=== PATIENT | female | born 1980 | race Two or more races ===

== ENCOUNTER 2022-11-02 09:14 | Outpatient (OUT) | payer BC, SELFPAY ==
[2022-11-02 09:54] LABS: Basophils Percent Auto 0.8 % (0.2-2.0); Eosinophils Absolute Auto 0.2 10^3/uL (0.0-0.7); Eosinophils Percent Auto 3.1 % (0.9-7.0); Hematocrit 36.1 % (36.0-48.0); Hemoglobin 11.7 g/dL (12.0-16.0); Immature Granulocytes Abs Auto 0.01 10^3/uL (0.00-0.03); Immature Granulocytes Pct Auto 0.2 % (0.0-0.5); Lymphocytes Percent Auto 38.6 % (20.5-60.0); Mean Corpuscular HGB Conc 32.4 g/dL (29.9-35.2); Mean Corpuscular Hemoglobin 28.1 pg (26.7-34.0); Mean Corpuscular Volume 86.8 fL (81.0-99.0); Monocytes Absolute Auto 0.3 10^3/uL (0.3-0.8); Monocytes Percent Auto 6.4 % (1.7-12.0); Neutrophils Absolute Auto 2.6 10^3/uL (1.4-6.5); Neutrophils Percent Auto 50.9 % (43.0-75.0); Platelet Count 387 10^3/uL (150-450); Red Blood Count 4.16 10^6/uL (4.20-5.40); White Blood Count 5.2 10^3/uL (4.0-11.0)
[2022-11-02 10:16] LABS: Estimated Average Glucose 114 mg/dL; Glycohemoglobin A1C 5.6 % (4.5-6.2)
[2022-11-02 10:28] LABS: Alanine Aminotransferase 23 U/L (14-59); Albumin Level 3.7 g/dL (3.4-5.0); Alkaline Phosphatase 82 U/L (46-116); Anion Gap 12.2; Aspartate Amino Transferase 17 U/L (15-37); BUN Creatinine Ratio 12.2; Bilirubin Direct 0.1 mg/dL (0.0-0.2); Bilirubin Total 0.4 mg/dL (0.2-1.0); Calcium 8.5 mg/dL (8.5-10.1); Carbon Dioxide 25.6 mmol/L (21.0-32.0); Chloride 104 mmol/L (98-107); Chol HDL Ratio 2.2; Cholesterol 240 mg/dL (<=200); Estimated GFR (African America >60 (>=60); Estimated GFR (Non-African Ame >60 (>=60); Free T3 2.56 pg/mL (2.18-3.98); Globulin 3.8 g/dL; Glucose 97 mg/dL (74-106); HDL Cholesterol 108 mg/dL (40-60); Potassium 3.8 mmol/L (3.5-5.1); Sodium 138 mmol/L (136-145); Thyroid Stimulating Hormone 0.813 uIU/mL (0.358-3.740); Total Protein 7.5 g/dL (6.4-8.2); Triglycerides 54 mg/dL (<=150); VLDL CHOLESTEROL 10.8 mg/dL
[2022-11-02 10:34] LABS: Free T4 1.16 ng/dL (0.76-1.46)
[2022-11-03 11:09] LABS: Insulin 6.5 uIU/mL (2.6-24.9)
== END 2022-11-02 09:15 | disposition home or self-care (01) ==
LOC: LAB 09:19
PROVIDERS: PCP Family Medicine; Visit Provider Family Medicine
DX: Z00.00 Encounter for general adult medical examination without abnormal findings (principal); E06.3 Autoimmune thyroiditis
CPT/HCPCS: 36415; 80048; 80061; 80076; 83036; 83525; 84439; 84443; 84481; 85025

== ENCOUNTER 2023-09-28 12:09 | Outpatient (OUT) | payer BC, SELFPAY ==
[2023-09-28 12:31] LABS: Basophils Absolute Auto 0.1 10^3/uL (0.0-0.1); Eosinophils Absolute Auto 0.2 10^3/uL (0.0-0.7); Eosinophils Percent Auto 3.1 % (0.9-7.0); Hematocrit 37.7 % (36.0-48.0); Hemoglobin 11.6 g/dL (12.0-16.0); Immature Granulocytes Abs Auto 0.02 10^3/uL (0.00-0.03); Immature Granulocytes Pct Auto 0.3 % (0.0-0.5); Lymphocytes Absolute Auto 2.4 10^3/uL (1.2-3.8); Lymphocytes Percent Auto 38.1 % (20.5-60.0); Mean Corpuscular HGB Conc 30.8 g/dL (29.9-35.2); Mean Corpuscular Hemoglobin 25.7 pg (26.7-34.0); Mean Corpuscular Volume 83.6 fL (81.0-99.0); Mean Platelet Volume 8.8 fL (9.5-13.5); Monocytes Absolute Auto 0.4 10^3/uL (0.3-0.8); Monocytes Percent Auto 6.4 % (1.7-12.0); Neutrophils Absolute Auto 3.2 10^3/uL (1.4-6.5); Neutrophils Percent Auto 51.1 % (43.0-75.0); Platelet Count 403 10^3/uL (150-450); Red Blood Count 4.51 10^6/uL (4.20-5.40); Red Cell Distribution Width 17.2 % (11.0-15.0); White Blood Count 6.2 10^3/uL (4.0-11.0)
[2023-09-28 12:42] LABS: Estimated Average Glucose 120 mg/dL; Glycohemoglobin A1C 5.8 % (4.5-6.2)
[2023-09-28 14:05] LABS: Free T4 0.93 ng/dL (0.76-1.46)
[2023-09-28 14:09] LABS: Alanine Aminotransferase 24 U/L (14-59); Albumin Globulin Ratio 0.9; Albumin Level 3.6 g/dL (3.4-5.0); Alkaline Phosphatase 78 U/L (46-116); Anion Gap 13.4; Aspartate Amino Transferase 15 U/L (15-37); BUN Creatinine Ratio 14.1; Bilirubin Direct 0.1 mg/dL (0.0-0.2); Bilirubin Total 0.4 mg/dL (0.2-1.0); Calcium 8.5 mg/dL (8.5-10.1); Carbon Dioxide 25.7 mmol/L (21.0-32.0); Chloride 104 mmol/L (98-107); Chol HDL Ratio 2.3; Cholesterol 251 mg/dL (<=200); Estimated GFR (African America >60 (>=60); Estimated GFR (Non-African Ame >60 (>=60); Free T3 2.38 pg/mL (2.18-3.98); Globulin 3.9 g/dL; Glucose 93 mg/dL (74-106); HDL Cholesterol 109 mg/dL (40-60); Potassium 4.1 mmol/L (3.5-5.1); Sodium 139 mmol/L (136-145); Thyroid Stimulating Hormone 2.426 uIU/mL (0.358-3.740); Total Protein 7.5 g/dL (6.4-8.2); Triglycerides 72 mg/dL (<=150); VLDL CHOLESTEROL 14.4 mg/dL
== END 2023-09-28 12:10 | disposition home or self-care (01) ==
LOC: LAB 12:11
PROVIDERS: PCP Family Medicine; Visit Provider Family Medicine
DX: Z00.00 Encounter for general adult medical examination without abnormal findings (principal); E06.3 Autoimmune thyroiditis
CPT/HCPCS: 36415; 80048; 80061; 80076; 83036; 84439; 84443; 84481; 85025

== ENCOUNTER 2024-03-05 15:35 | Emergency (ER) | payer BC, SELFPAY ==
[2024-03-05 15:44] VITALS: BP 134/97; PULSE 94; TEMP 36.6; O2SAT 98; BMI 36.6
--- NOTE | 2024-03-05 15:52 | PC.NURSE ---
Area to right outer hand, small amount of bleeding present, no redness or warmth at site.
--- NOTE | 2024-03-05 16:33 | ED_ITS ---
HPI - Skin/Abscess/Foreign Bdy General Chief complaint: Skin/Abscess/Foreign Body Stated complaint: PYOGENIC GRANULOMA ISSUE/BLEEDING Time Seen by Provider: 03/05/24 15:56 Source: patient Mode of arrival: walk-in History of Present Illness HPI narrative: The patient have a granular but her right hand apparently recently evaluated by manager of finance and had cryotherapy to it, she was getting home apparently when she had her right hand is started bleeding where the therapy was No other injuries or any other concern Related Data Home Medications ?Medication ?Instructions ?Recorded ?Confirmed fluticasone furoate 100 1 inh inhalation Q24H 03/05/24 03/05/24 mcg-vilanterol 25 mcg/dose inhalation powder (Breo Ellipta) levothyroxine 75 mcg tablet 75 mcg PO DAILY 03/05/24 03/05/24 Allergies Allergy/AdvReac Type Severity Reaction Status Date / Time Latex, Natural Rubber Allergy Hives Verified 03/05/24 15:41 Review of Systems ROS Status of ROS 10 or more systems reviewed and unremark able except as noted in history and below PFSH PFSH Social History Little interest or pleasure in doing things: not at all Feeling down, depressed, or hopeless: not at all Exam Narrative Exam Narrative: Nurses notes and vital signs reviewed and patient is not hypoxic. General: Well-appearing and in no apparent distress. Right hand examination: The patient have a small granuloma just on the medial aspect of the hand mostly just below the small finger measuring 0.25 cm and it is mildly bleeding no other vascular injury detected Skin: Warm, dry, no pallor noted. No rash. Head: Normocephalic, atraumatic. Neck: Supple, non-tender. Eye: Pupils are equal, round and EOMI. No scleral icterus. Ears, Nose, Mouth, and Throat: TM are clear, no nasal mucosal hypertrophy. Oral mucosa is moist, no posterior oropharynx erythema, uvula is mid-line Cardiovascular: Regular Rate and Rhythm without murmur, gallop or rub. Respiratory: No accessory muscle use or respiratory distress. Lungs are clear to auscultation, no wheezing, rales or rhonchi Chest Wall: no tenderness Back: No midline thoracic or lumbar vertebral tenderness. No CVA tenderness GI: Abdomen is soft, non-distended. Normal bowel sounds. No masses appreciated. No tenderness to palpation. No rebound, guarding, or rigidity noted. Neurological: A&O x4. No cranial nerve dysfunction observed. No truncal ataxia. Moves all extremities. Sensation intact. Psychiatric: Cooperative and interactive. Normal mood and affect. Constitutional Vital Signs, click to edit/add: Last Vital Signs Temp 97.8 F 03/05/24 15:44 Pulse 94 H 03/05/24 15:44 Resp 18 03/05/24 15:44 BP 134/97 H 03/05/24 15:44 Pulse Ox 98 03/05/24 15:44 O2 Del Method Room Air 03/05/24 15:44 Course Vital Signs Vital signs: Vital Signs Temperature 97.8 F 03/05/24 15:44 Pulse Rate 94 H 03/05/24 15:44 Respiratory Rate 18 03/05/24 15:44 Blood Pressure 134/97 H 03/05/24 15:44 Pulse Oximetry 98 03/05/24 15:44 Oxygen Delivery Method Room Air 03/05/24 15:44 Temperature 97.8 F 03/05/24 15:44 Pulse Rate 94 H 03/05/24 15:44 Respiratory Rate 18 03/05/24 15:44 Blood Pressure 134/97 H 03/05/24 15:44 Pulse Oximetry 98 03/05/24 15:44 Oxygen Delivery Method Room Air 03/05/24 15:44 MDM - Skin/Abscess/Foreign Bdy MDM Narrative Medical decision making narrative: Applied pressure dressing on her right hand and kept it at least for more than half an hour in the ER with no bleeding the patient was discharged home to continue the dressing for the next 24 hours at least The patient is to follow up with primary care physician in next 2-3 days or to return to the emergency department should any of the signs or symptoms worsen or new symptoms develop. The patient agrees with the following Diagnosis and Treatment plan and the patient will be discharged home. Discharge Plan Discharge Chief Complaint: Skin/Abscess/Foreign Body Clinical Impression: Skin abnormality Patient Disposition: Home, Self-Care Time of Disposition Decision: 16:33 Condition: Good Prescriptions / Home Meds: No Action fluticasone furoate-vilanterol [Breo Ellipta] 100-25 mcg/dose blister with device 1 inh INHALATION Q24H levothyroxine 75 mcg tablet 75 mcg PO DAILY Print Language: Turkmen Referrals: Jl Bae MD [Primary Care Provider] - 1 week
== END 2024-03-05 16:41 | disposition home or self-care (01) ==
PROVIDERS: Emergency Provider Emergency Medicine; PCP Family Medicine
DX: L92.8 Other granulomatous disorders of the skin and subcutaneous tissue (principal)
CPT/HCPCS: 99281

== ENCOUNTER 2024-06-07 06:02 | Emergency (ER) | payer BC, SELFPAY ==
--- OUTSIDE RECORDS SUMMARY | 2024-06-07 06:08 | XMS_ITS | CCD ---
Author Organization [facility] Care Team Providers Care 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 Name Role Phone Mariana Lopez Unavailable Mya Del Real Unavailable CARROLL RUSHING Admitting Unavailable CARROLL RUSHING Attending Unavailable SHAIKH CARMONA Referring Unavailable BRUSH [place], SR MINO Albright Primary Care Unavailable KRISTAN BELLAMY Consulting Unavailable BRUSH [place], DR HERZOG Consulting Unavailable BRUSH [place]IRIE, DR HERZOG Primary Care Unavailable BRUSH [place]IRIE, DR HERZOG Admitting Unavailable BRUSH [place]AIRIE, DR HERZOG Attending Unavailable BRUSH [place]AIRIE, DR HERZOG Consulting Unavailable BRUSH [place]AIRIE, DR HERZOG Primary Care Unavailable BRUSH [place]AIRIE, DR HERZOG Admitting Unavailable BRUSH [place]AIRIE, DR HERZOG Attending Unavailable BRUSH PRAIRIE, DR HERZOG Attending Unavailable BRUSH [place]AIRIE, DR HERZOG Consulting Unavailable BRUSH [place]AIRIE, DR HERZOG Primary Care Unavailable BRUSH [place], DR HERZOG Admitting Unavailable KRISTINE, SHAIKH Nathalie Attending Unavailable KRISTINE, H Admitting Unavailable STIRUM, DR ANDRZEJ Montgomery Consulting Unavailable BRUSH [place]AIRIE, DR HERZOG Primary [facility] Hurtado Consulting Unavailable SAMSA ., JUSTINA Procedure Practitioner Unavailab lamberto CARMONA, ARRIAGA H Procedure Practitioner Unavailrula MALHOTRA ., ROMI QUINN Consulting UnavailNANDO Barrientos Consulting Unavailable SAMSA ., JUSTINA Consulting Unavailable IRENE BAEZ Consulting Unavailable FAWWAD, ARRIAGA H Consulting Unavailable STEPHEN GIVandana Consulting Unavailable GABRIEL, LIYAH Consulting Unavailable Jl Lockett MD Unavailable Jl Lockett MD Primary Care Provider JL LOCKETT Attending Unavailable JL LOCKETT Attending Unavailable JL LOCKETT Attending Unavailable JL LOCKETT Attending Unavailable LEVY, JL Attending Unavailable LEVY, JL Attending Unavailable JL LOCKETT Attending Unavailable Allergies Allergy Classification Reported Allergen(s) Allergy Type Date of Onset Reaction(s) Facility (2 sources) Shellfish Propensity to adverse reactions anaphylaxis [employer] Other (1 source) Latex Drug allergy hives [employer] Other (1 source) Latex Drug allergy (disorder) [facility] (1 source) Shellfish Drug allergy (disorder) [facility] Medications Current Medications Medication Drug Class(es) Dates Sig (Normalized) Sig (Original) albuterol 0.83 mg/ml inhalation solution (20 sources) beta2-Adrenergic Agonist Start: 02-10-2024 albuterol (2.5 MG/3ML) 0.083% nebulizer solution Indications: Asthma, extrinsic, without status asthmaticus, mild intermittent, uncomplicated (CMS/HCC) Take 3 mL (2.5 mg) by nebulization every 4 (four) hours if needed for wheezing or shortness of breath 150 mL 3 02/10/2024 Active take 2 puff(s) by in halation every four hours for wheezing albuterol HFA 90 mcg/act inhaler Inhale 2 puffs every 4 (four) hours if needed for wheezing Active take 2 puff(s) by in halation every four hours as needed ProAir HFA 108 (90 Base) MCG/ACT 2 puffs as needed Inhalation every 4 hrs Active cefdinir 300 mg oral capsule (4 sources) Cephalosporin Antibacterial Start: 03-19-2024 End: 03-31-2024 take 1 capsule by mouth in the morning cefdinir (Omnicef) 300 MG capsule Indications: Acute non-recurrent pansinusitis Take 1 capsule (300 mg) by mouth in the morning and 1 capsule (300 mg) before bedtime. Do all this for 10 days. 20 capsule 03/19/2024 03/31/2024 Active cetirizine hydrochloride 10 mg oral tablet (14 sources) Histamine-1 Receptor Antagonist take 1 tablet by mouth in the morning cetirizine (ZyrTEC) 10 MG tablet Take 10 mg by mouth in the morning. Active esomeprazole 20 mg delayed release oral capsule (14 sources) Proton Pump Inhibitor take 1 capsule by mouth before mealtime esomeprazole (NexIUM) [address] capsule Take 20 mg by mouth in the morning. Take before meals. Do not open capsule.. Active NexIUM Active fluticasone propionate 0.05 mg/actuat metered dose nasal spray (12 sources) Corticosteroid take 2 spray(s) nasal route in the morning fluticasone (Flonase) 50 MCG/ACT nasal spray Administer 2 sprays into each nostril in the morning. Shake gently. Before first use, prime pump. After use, clean tip and replace cap.. Active 14 actuat fluticasone furoate 0.1 mg/actuat / vilanterol 0.025 mg/actuat dry powder inhaler (12 sources) Corticosteroid, beta2-Adrenergic Agonist Start: Fluticasone Furoate-Vilanterol (Breo Ellipta) 100-25 MCG/ACT aerosol powder Indications: Asthma, extrinsic, without status asthmaticus, mild intermittent, uncomplicated (CMS/HCC) Inhale 1 Inhalation Daily 60 each 3 11/21/2023 Active levothyroxine sodium 0.075 mg oral tablet (12 sources) l-Thyroxine Start: End: take 1 tablet by mouth before mealtime levothyroxine (Synthroid, Levoxyl) 75 MCG tablet Indications: Rowena's disease (CMS/HCC) Take 1 tablet (75 mcg) by mouth in the morning. Take before meals. 30 tablet 11 09/26/2023 09/25/2024 Active liothyronine sodium 0.005 mg oral tablet (12 sources) l-Triiodothyronine Start: take 1 tablet by mouth in the morning liothyronine (Cytomel) 5 MCG tablet Take 5 mcg by mouth in the morning. 02/23/2023 Active naproxen 500 mg oral tablet (2 sources) Nonsteroidal Anti-inflammatory Drug Start: take 1 tablet by mouth every twelve hours Naproxen 500 mg 1 tablet as needed Orally every 12 hrs for 7 days Feb, Active ondansetron 4 mg disintegrating oral tablet (11 sources) Serotonin-3 Receptor Antagonist Start: take 1 tablet by mouth every six hours as needed for nausea and vomiting and nausea and nausea ondansetron ODT (Zofran-ODT) 4 MG disintegrating tablet Indications: Nausea Take 1 tablet (4 mg) by mouth every 6 (six) hours if needed for nausea or vomiting 30 tablet 2 12/26/2023 Active promethazine hydrochloride 25 mg oral tablet (5 sources) Phenothiazine Start: 025 take 1 tablet by mouth every six hours for nausea promethazine (Phenergan) 25 MG tablet Indications: Acute non-recurrent pansinusitis Take 1 tablet (25 mg) by mouth every 6 (six) hours if needed for nausea or vomiting 30 tablet 03/19/2024 Active Semaglutide,0.25 or 0.5MG/DOS, (Ozempic, 0.25 or 0.5 MG/DOSE,) 2 MG/3ML solution pen-injector (12 sources) Start: 024 End: 025 Semaglutide,0.25 or 0.5MG/DOS, (Ozempic, 0.25 or 0.5 MG/DOSE,) 2 MG/3ML solution pen-injector Indications: Metabolic syndrome Inject 0.5 mg under the skin every 7 (seven) days 3 mL 2 09/26/2023 09/25/2024 Active Completed/Discontinued Medications Medication Drug Class(es) Dates Sig (Normalized) Sig (Original) 24 hr metFORMIN hydrochloride 500 mg extended release oral tablet (3 sources) Biguanide Start: 09-26-2023 End: 12-26-2023 take 1 tablet by mouth every twenty-four hours at mealtime metFORMIN XR (Glucophage-XR) 500 MG 24 hr tablet Indications: Insulin resistance Take 1 tablet (500 mg) by mouth in the evening. Take with meals Do not crush, chew, or split. 30 tablet 3 09/26/2023 12/26/2023 Discontinued predniSONE 50 mg oral tablet (4 sources) Start: 03-19-2024 End: 03-31-2024 take 1 tablet by mouth once daily predniSONE (Deltasone) 50 MG tablet Indications: Acute non-recurrent pansinusitis Take 1 tablet (50 mg) by mouth Daily for 6 days 6 tablet 03/19/2024 03/31/2024 Discontinued raNITIdine 150 mg oral tablet (2 sources) Histamine-2 Receptor Antagonist take 1 tablet by mouth twice daily Zantac 150 MG 1 tablet Orally Twice a day Not-Taking Problems Active Problems Problem Classification Problem Date Documented Date Episodic/Chronic Anxiety disorders (2 sources) Anxiety disorder, unspecified; Translations: [Anxiety disorder, unspecified] Onset: 02-15-2022 Chronic Asthma (20 sources) Unspecified asthma with (acute) exacerbation; Translations: [Unspecified asthma with status asthmaticus] Onset: 02-11-2022 Chronic Cardiac dysrhythmias (4 sources) Supraventricular tachycardia; Translations: [SUPRAVENTRICULAR TACHYCARDIA] Onset: 03-22-2022 Chronic Diseases of white blood cells (1 source) Elevated white blood cell count, unspecified; Translations: [ELEVATED WHITE BLOOD CELL COUNT UNS] Onset: 03-05-2022 Chronic Esophageal disorders (12 sources) Gastroesophageal reflux disease; Translations: [Gastro-esophageal reflux disease without esophagitis] Onset: 04-04-2023 04-04-2023 Chronic Nausea and vomiting (2 sources) Nausea; Translations: [Nausea] 12-26-2023 Episodic Other nutritional; endocrine; and metabolic disorders (1 source) Body mass index (BMI) 36.0-36.9, adult; Translations: [BODY MASS INDEX BMI 36.0-36.9 ADULT] Onset: 03-05-2022 Chronic Other nutritional; endocrine; and metabolic disorders (1 source) Morbid (severe) obesity due to excess calories; Translations: [MORBID SEVERE OBES D/T EXCESS GENEVA] Onset: 03-05-2022 Chronic Other nutritional; endocrine; and metabolic disorders (16 sources) Insulin resistance; Translations: [Insulin resistance] Onset: 09-25-2023 09-25-2023 Chronic Other nutritional; endocrine; and metabolic disorders (12 sources) Metabolic syndrome X; Translations: [Metabolic syndrome] Onset: 09-25-2023 09-25-2023 Chronic Other nutritional; endocrine; and metabolic disorders (1 source) Morbid obesity; Translations: [Morbid (severe) obesity due to excess calories] Onset: 09-25-2023 09-25-2023 Chronic Other nutritional; endocrine; and metabolic disorders (8 sources) Body mass index 30+ - obesity; Translations: [Obesity, unspecified] Onset: 09-25-2023 12-26-2023 Chronic Other nutritional; endocrine; and metabolic disorders (7 sources) Severe obesity; Translations: [Class 2 severe obesity due to excess calories with serious comorbidity and body mass index (BMI) of 36.0 to 36.9 in adult] Onset: 09-25-2023 03-19-2024 Chronic Other nutritional; endocrine; and metabolic disorders (4 sources) Abnormal weight gain; Translations: [ABNORMAL WEIGHT GAIN] Onset: 07-05-2022 Episodic Other screening for suspected conditions (not mental disorders or infectious disease) (3 sources) Other specified abnormal findings of blood chemistry; Translations: [Patient encounter status] Onset: 03-05-2022 03-31-2024 Episodic Other skin disorders (14 sources) Pyogenic granuloma; Translations: [Pyogenic granuloma] Onset: 02-10-2024 02-10-2024 Episodic Other upper respiratory disease (16 sources) Allergic rhinitis due to pollen; Translations: [Allergic rhinitis due to pollen] Onset: 04-04-2023 04-04-2023 Chronic Substance-related disorders (1 source) Nicotine dependence, cigarettes, uncomplicated; Translations: [NICOTINE DEPEND CIGARETTES UNCOMP] Onset: 03-05-2022 Chronic Thyroid disorders (17 sources) Autoimmune thyroiditis; Translations: [Hypothyroidism, unspecified] Onset: 04-26-2022 Chronic Unclassified (1 source) ACIDOSIS UNSPECIFIED; Translations: [ACIDOSIS UNSPECIFIED] Onset: 03-05-2022 Unclassified (1 source) CONTACT W/AND (SUSP) EXPOS COVID-19; Translations: [CONTACT W/AND (SUSP) EXPOS COVID-19] Onset: 03-05-2022 Past or Other Problems Problem Classification Problem Date Documented Date Episodic/Chronic Abdominal hernia (1 source) Diaphragmatic hernia without obstruction or gangrene; Translations: [DIAPH HERNIA W/O OBST/GANGRENE] Onset: 03-05-2022 Episodic Allergic reactions (12 sources) Nummular eczema; Translations: [Nummular dermatitis] Onset: 04-04-2023 04-04-2023 Episodic Cardiac dysrhythmias (1 source) Tachycardia, unspecified; Translations: [TACHYCARDIA UNSPECIFIED] Onset: 03-05-2022 Episodic Diabetes mellitus without complication (14 sources) Prediabetes; Translations: [Prediabetes] Onset: 04-04-2023 04-04-2023 Episodic E Codes: Adverse effects of medical drugs (1 source) Adverse effect of glucocorticoids and synthetic analogues, initial encounter; Translations: [ADVRS EFF GLUCOCORT SYN ANALOG INIT] Onset: 03-05-2022 Episodic Influenza (1 source) Influenza due to other identified influenza virus with the same other identified influenza virus pneumonia; Translations: [FLU D/T OTH ID FLU VIR SAME FLU PN] Onset: 03-05-2022 Episodic Other connective tissue disease (1 source) Pain in right foot Onset: 02-21-2021 Resolved: 02-21-2021 Episodic Other injuries and conditions due to external causes (1 source) Foreign body in vulva and vagina, initial encounter Onset: 09-02-2021 Resolved: 09-02-2021 Episodic Other upper respiratory infections (14 sources) Acute pansinusitis; Translations: [Acute pansinusitis, unspecified] Onset: 04-04-2023 Resolved: 03-31-2024 09-25-2023 Episodic Respiratory failure; insufficiency; arrest (adult) (2 sources) Acute respiratory failure with hypoxia; Translations: [Acute respiratory failure with hypercapnia] Onset: 03-05-2022 Episodic Sprains and strains (1 source) Unspecified sprain of right foot, initial encounter Onset: 02-21-2021 Resolved: 02-21-2021 Episodic Results Test Name Value Interpretation Reference Range Facility PROF 14(COMP METB)on 023 Albumin [Mass/Vol] 3.6 g/dL Normal 3.4-5.0 [facility] Comment on above: Performed By: #### T 4, CMP, TSH #### [facility] [address] [place] [address] Dr. Aileen Bradford Albumin/Globulin [Mass ratio] 0.9 {ratio} Normal [facility] Comment on above: Performed By: #### T 4, CMP, TSH #### [facility] [address] [place] [address] Dr. Aileen Bradford ALP [Catalytic activity/Vol] 98 U/L Normal 46-116 [facility] Comment on above: Performed By: #### T 4, CMP, TSH #### [facility] [address] [place] [address] Dr. Aileen Bradford ALT [Catalytic activity/Vol] 37 U/L Normal 14-59 [facility] Comment on above: Performed By: #### T 4, CMP, TSH #### [facility] [address] [place] [address] Dr. Aileen Bradford Anion gap [Moles/Vol] 16.0 mmol/L Normal [facility] Comment on above: Performed By: #### T 4, CMP, TSH #### [facility] [address] [place] [address] Dr. Aileen Bradford AST [Catalytic activity/Vol] 26 U/L Normal 15-37 [facility] Comment on above: Performed By: #### T 4, CMP, TSH #### [facility] [address] [place] [address] Dr. Aileen Bradford Bilirubin [Mass/Vol] 0.2 mg/dL Normal 0.2-1.0 [facility] Comment on above: Performed By: #### T 4, CMP, TSH #### [facility] [address] [place] [address] Dr. Aileen Bradford Calcium [Mass/Vol] 9.1 mg/dL Normal 8.5-10.1 [facility] Comment on above: Performed By: #### T 4, CMP, TSH #### [facility] [address] [place] [address] Dr. Aileen Bradford Chloride [Moles/Vol] 107 mmol/L Normal 98-107 [facility] Comment on above: Performed By: #### T 4, CMP, TSH #### [facility] [address] [place] [address] Dr. Aileen Bradford CO2 [Moles/Vol] 22.8 mmol/L Normal 21.0-32.0 [facility] Comment on above: Performed By: #### T 4, CMP, TSH #### [facility] [address] [place] [address] Dr. Aileen Bradford Creatinine [Mass/Vol] 0.95 mg/dL Normal 0.55-1.02 [facility] Comment on above: Performed By: #### T 4, CMP, TSH #### [facility] [address] [place] [address] Dr. Aileen Bradford EGFR-AF BURMESE >60 Normal >=60 [facility] Comment on above: Performed By: #### T 4, CMP, TSH #### [facility] [address] [place] [address] Dr. Aileen Bradford EGFR-NON AF BURMESE >60 Normal >=60 [facility] Comment on above: Performed By: #### T 4, CMP, TSH #### [facility] [address] [address] [address] Aileen Bradford Globulin (S) [Mass/Vol] 3.9 g/dL Normal [facility] Comment on above: Performed By: #### T 4, CMP, TSH #### [facility] [address] [address] [address] Aileen Bradford Glucose [Mass/Vol] 112 mg/dL Critically high 74-106 [facility] Comment on above: Performed By: #### T 4, CMP, TSH #### [facility] [address] [place] [address] Dr. Aileen Bradford Potassium [Moles/Vol] 3.8 mmol/L Normal 3.5-5.1 [facility] Comment on above: Performed By: #### T 4, CMP, TSH #### [facility] [address] [place] [address] Dr. Aileen Bradford Protein [Mass/Vol] 7.5 g/dL Normal 6.4-8.2 [facility] Comment on above: Performed By: #### T 4, CMP, TSH #### [facility] [address] [place] [address] Dr. Aileen Bradford Sodium [Moles/Vol] 142 mmol/L Normal 136-145 [facility] Comment on above: Performed By: #### T 4, CMP, TSH #### [facility] [address] [place] [address] Dr. Aileen Bradford Urea nitrogen [Mass/Vol] 19.0 mg/dL Critically high 7.0-18.0 [facility] Comment on above: Performed By: #### T 4, CMP, TSH #### [facility] [address] [place] [address] Dr. Aileen Bradford Urea nitrogen/Creatinine [Mass ratio] 20.0 mg/mg Normal [facility] Comment on above: Performed By: #### T 4, CMP, TSH #### [facility] [address] [place] [address] Dr. Aileen Bradford T4on 07-05-2022 T4 [Mass/Vol] 11.10 ug/dL Normal 4.80-13.90 [facility] Comment on above: Performed By: #### T 4, CMP, TSH #### [facility] [address] [place] [address] Dr. Aileen Bradford TSHon 07-05-2022 TSH Qn m[IU]/L Critically low 0.358-3.740 [facility] Comment on above: Performed By: #### T 4, CMP, TSH #### [facility] [address] [place] [address] Dr. Aileen Bradford T4on 04-26-2022 T4 [Mass/Vol] 8.70 ug/dL Normal 4.80-13.90 [facility] Comment on above: Performed By: #### T 4, CMP, TSH #### [facility] [address] [place] [address] Dr. Aileen Bradford TSHon 04-26-2022 TSH 0.538 uIU/mL Normal 0.358-3.740 [facility] Comment on above: Performed By: #### T 4, CMP, TSH #### [facility] [address] [place] [address] Dr. Aileen Bradford THYROID ANTIBODIESon 023 Thyroglobulin Antibody 327.4 IU/mL Critically high 0.0-0.9 [facility] Comment on above: Result Comment: Thyr oglobulin Antibody measured by [employer] Performed By: #### T 4, CMP, TSH #### [facility] [address] [place] [address] Dr. Aileen Bradford Thyroid Peroxidase (TPO) Ab 97 IU/mL Critically high 0-34 [facility] Comment on above: Performed By: #### T 4, CMP, TSH #### [facility] [address] [place] [address] Dr. Aileen Bradford T4on 03-22-2022 T4 [Mass/Vol] 6.50 ug/dL Normal 4.80-13.90 [facility] Comment on above: Performed By: #### T 4, TSH #### [facility] [address] [address] [address] Aileen Bradford TSHon 03-22-2022 TSH 1.375 uIU/mL Normal 0.358-3.740 [facility] Comment on above: Performed By: #### T 4, TSH #### [facility] [address] [address] [address] Aileen Bradford Basic Metab w/rfx MGon 02-25 Anion gap [Moles/Vol] 14 mmol/L Normal 9-17 [facility] Comment on above: Performed By: #### C DP IOCAL, REJEC #### [employer] [address] [place] [id number] Brokerage Manager: Ashkan Torres MD Calcium [Mass/Vol] 8.8 mg/dL Normal 8.6-10.4 [facility] Comment on above: Performed By: #### C DP, IOCAL, REJEC #### [facility] [address] [place] [address] Brokerage Manager: Ashkan Torres MD Chloride [Moles/Vol] 104 mmol/L Normal 98-107 [facility] Comment on above: Performed By: #### C DP, IOCAL, REJEC #### [employer] [address] [place] [address] Brokerage Manager: Ashkan Torres MD CO2 [Moles/Vol] 23 mmol/L Normal 20-31 [facility] Comment on above: Performed By: #### C DP, IOCAL, REJEC #### [employer] [address] [place] [address] Brokerage Manager: Ashkan Torres MD Creatinine [Mass/Vol] 0.47 mg/dL Low 0.50-0.90 [facility] Comment on above: Performed By: #### C DP, IOCAL, REJEC #### [facility] [address] [place] [address] Brokerage Manager: Ashkan Torres MD GFR/1.73 sq M.predicted among non-blacks MDRD (S/P/Bld) [Vol rate/Area] mL/min/{1.73_m2} Normal >60 [facility] Comment on above: Result Comment: Effective Dec 18, 2021 These results are not intended for use in patients <18 years of age. eGFR results are calculated without a race factor using the 2020 CKD-EPI equation. Careful clinical correlation is recommended, particularly when comparing to results calculated using previous equations. The CKD-EPI equation is less accurate in patients with extremes of muscle mass, extra-renal metabolism of creatine, excessive creatine ingestion, or following therapy that affects renal tubular secretion. Performed By: #### C SAIGE HARRIS REJEC #### [facility] [employer] [address] [place] [id number] Brokerage Manager: Ashkan Torres MD Glucose [Mass/Vol] 94 mg/dL Normal 70-99 [facility] Comment on above: Performed By: #### C SAIGE HARRIS REJEC #### [facility] [address] [place] [address] Brokerage Manager: Ashkan Torres MD Potassium [Moles/Vol] 3.7 mmol/L Normal 3.7-5.3 [facility] Comment on above: Performed By: #### C SAIGE HARRIS REJEC #### [facility] [address] [place] [address] Brokerage Manager: Ashkan Torres MD Sodium [Moles/Vol] 141 mmol/L Normal 135-144 [facility] Comment on above: Performed By: #### C SAIGE HARRIS REJEC #### [facility] [address] [place] [address] Brokerage Manager: Ashkan Torres MD Urea nitrogen [Mass/Vol] 16 mg/dL Normal 6-20 [facility] Comment on above: Performed By: #### C DP IOCAL, REJEC #### [address] [address] Brokerage Manager: Ashkan Torres MD CBC with Diffon 02-25-2022 Abs. Basophil <0.03 Normal 0.00-0.20 [facility] Comment on above: Performed By: #### C DP IOCAL, REJEC #### [address] [address] Brokerage Manager: Ashkan Torres MD Abs.Imm.Granulocyte 0.11 k/uL Normal 0.00-0.30 [facility] Comment on above: Performed By: #### C STEVEN IOCAL, REJEC #### [address] [address] Brokerage Manager: Ashkan Torres MD Abs.Neutrophil (Seg) 3.79 k/uL Normal 1.50-8.10 [facility] Comment on above: Performed By: #### C STEVEN IOCAL, REJEC #### [address] [address] Brokerage Manager: Ashkan Torres MD Basophils/100 WBC (Bld) 0 % Normal 0-2 [facility] Comment on above: Performed By: #### C VIANNEY HARRISCAL, REJEC #### [address] [address] Brokerage Manager: Ashkan Torres MD Eosinophils (Bld) [#/Vol] 0.11 10*3/uL Normal 0.00-0.44 [facility] Comment on above: Performed By: #### C DP IOCAL, REJEC #### [facility] [facility] [address] [place] [address] Brokerage Manager: Ashkan Torres MD Eosinophils/100 WBC (Bld) 1 % Normal 1-4 [facility] Comment on above: Performed By: #### C DP, IOCAL, REJEC #### [facility] [facility] [address] [place] [address] Brokerage Manager: Ashkan Torres MD Erythrocyte distribution width (RBC) [Ratio] 15.5 % High 11.8-14.4 [facility] Comment on above: Performed By: #### C DP, IOCAL, REJEC #### [address] [address] Brokerage Manager: Ashkan Torres MD Hematocrit (Bld) [Volume fraction] 34.5 % Low 36.3-47.1 [facility] Comment on above: Performed By: #### C DP, IOCAL, REJEC #### [facility] [address] [place] [address] Brokerage Manager: Ashkan Torres MD Hemoglobin (Bld) [Mass/Vol] 10.7 g/dL Low 11.9-15.1 [facility] Comment on above: Performed By: #### C DP, IOCAL, REJEC #### [facility] [address] [place] [address] Brokerage Manager: Ashkan Torres MD Immature granulocytes/100 WBC (Bld) 1 % High 0 [facility] Comment on above: Performed By: #### C DP, IOCAL, REJEC #### [address] [address] Brokerage Manager: Ashkan Torres MD Lymphocytes (Bld) [#/Vol] 3.31 10*3/uL Normal 1.10-3.70 [facility] Comment on above: Performed By: #### C DP, IOCAL, REJEC #### [facility] [address] [place] [address] Brokerage Manager: Ashkan Torres MD Lymphocytes/100 WBC (Bld) 42 % Normal 24-43 [facility] Comment on above: Performed By: #### C DP, IOCAL, REJEC #### [address] [address] Brokerage Manager: Ashkan Torres MD MCH (RBC) [Entitic mass] 30.1 pg Normal 25.2-33.5 [facility] Comment on above: Performed By: #### C DP, IOCAL, REJEC #### [address] [address] Brokerage Manager: Ashkan Torres MD MCHC (RBC) [Mass/Vol] 31.0 g/dL Normal 28.4-34.8 [facility] Comment on above: Performed By: #### C DP IOCAL, REJEC #### [address] [address] Brokerage Manager: Ashkan Torres MD MCV (RBC) [Entitic vol] 97.2 fL Normal 82.6-102.9 [facility] Comment on above: Performed By: #### C STEVEN IOCAL, REJEC #### [address] [address] Brokerage Manager: Ashkan Torres MD Monocytes (Bld) [#/Vol] 0.52 10*3/uL Normal 0.10-1.20 [facility] Comment on above: Performed By: #### C DP IOCAL, REJEC #### [address] [address] Brokerage Manager: Ashkan Torres MD Monocytes/100 WBC (Bld) 7 % Normal 3-12 [facility] Comment on above: Performed By: #### C DP, IOCAL, REJEC #### [address] [address] Brokerage Manager: Ashkan Torres MD Neutrophil (Seg) 49 % Normal 36-65 [facility] Comment on above: Performed By: #### C DP IOCAL, REJEC #### [address] [address] Brokerage Manager: Ashkan Torres MD NRBC Automated 0.0 per 100 WBC Normal 0.0 [facility] Comment on above: Performed By: #### C STEVEN IOCAL, REJEC #### [address] [address] Brokerage Manager: Ashkan Torres MD Platelet mean volume (Bld) [Entitic vol] 9.4 fL Normal 8.1-13.5 [facility] Comment on above: Performed By: #### C VIANNEY HARRISCAL, REJEC #### [address] [address] Brokerage Manager: Ashkan Torres MD Platelets (Bld) [#/Vol] 261 10*3/uL Normal 138-453 [facility] Comment on above: Performed By: #### C STEVEN IOCAL, REJEC #### [address] [address] Brokerage Manager: Ashkan Torres MD RBC (Bld) [#/Vol] 3.55 10*6/uL Low 3.95-5.11 [facility] Comment on above: Performed By: #### C STEVEN IOCAL, REJEC #### [address] [address] Brokerage Manager: Ashkan Torres MD RBC morphology finding Nom (Bld) ANISOCYTOSIS PRESENT Normal [facility] Comment on above: Performed By: #### C VIANNEY AHRRISCAL, REJEC #### [address] [address] Brokerage Manager: Ashkan Torres MD WBC (Bld) [#/Vol] 7.9 10*3/uL Normal 3.5-11.3 [facility] Comment on above: Performed By: #### C DP, IOCAL, REJEC #### [facility] [address] [place] [address] Brokerage Manager: Ashkan Torres MD Basic Metab w/rfx MGon 02-24 Anion gap [Moles/Vol] 12 mmol/L Normal 9-17 [facility] Comment on above: Performed By: #### I OCAL #### [address] [address] Brokerage Manager: Ashkan Torres MD Calcium [Mass/Vol] 8.7 mg/dL Normal 8.6-10.4 [facility] Comment on above: Performed By: #### I OCAL #### [address] [address] Brokerage Manager: Ashkan Torres MD Chloride [Moles/Vol] 104 mmol/L Normal 98-107 [facility] Comment on above: Performed By: #### I OCAL #### [facility] [address] [place] [address] Brokerage Manager: Ashkan Torres MD CO2 [Moles/Vol] 24 mmol/L Normal 20-31 [facility] Comment on above: Performed By: #### I OCAL #### [facility] [address] [place] [address] Brokerage Manager: Ashkan Torres MD Creatinine [Mass/Vol] 0.50 mg/dL Normal 0.50-0.90 [facility] Comment on above: Performed By: #### I OCAL #### [facility] [address] [place] [address] Brokerage Manager: Ashkan Torres MD GFR/1.73 sq M.predicted among non-blacks MDRD (S/P/Bld) [Vol rate/Area] mL/min/{1.73_m2} Normal >60 [facility] Comment on above: Result Comment: Effective Dec 18, 2021 These results are not intended for use in patients <18 years of age. eGFR results are calculated without a race factor using the 2020 CKD-EPI equation. Careful clinical correlation is recommended, particularly when comparing to results calculated using previous equations. The CKD-EPI equation is less accurate in patients with extremes of muscle mass, extra-renal metabolism of creatine, excessive creatine ingestion, or following therapy that affects renal tubular secretion. Performed By: #### I OCAL #### [facility] [address] [place] [address] Brokerage Manager: Ashkan Torres MD Glucose [Mass/Vol] 121 mg/dL High 70-99 [facility] Comment on above: Performed By: #### I OCAL #### [facility] [address] [place] [address] Brokerage Manager: Ashkan Torres MD Potassium [Moles/Vol] 4.2 mmol/L Normal 3.7-5.3 [facility] Comment on above: Performed By: #### I OCAL #### [address] [address] Brokerage Manager: Ashkan Torres MD Sodium [Moles/Vol] 140 mmol/L Normal 135-144 [facility] Comment on above: Performed By: #### I OCAL #### [address] [address] Brokerage Manager: Ashkan Torres MD Urea nitrogen [Mass/Vol] 18 mg/dL Normal 6-20 [facility] Comment on above: Performed By: #### I OCAL #### [facility] [address] [place] [address] Brokerage Manager: Ashkan Torres MD Potassium [Moles/Vol] 2.9 mmol/L Critically low 3.7-5.3 [facility] Comment on above: Performed By: #### C DP, IOCAL, REJEC #### [facility] [address] [place] [address] Brokerage Manager: Ashkan Torres MD Anion gap [Moles/Vol] 11 mmol/L Normal 9-17 [facility] Comment on above: Performed By: #### C VIANNEY HARRISCAL, REJEC #### [facility] [address] [place] [address] Brokerage Manager: Ashkan Torres MD Calcium [Mass/Vol] 8.5 mg/dL Low 8.6-10.4 [facility] Comment on above: Performed By: #### C STEVEN IOCAL, REJEC #### [facility] [address] [place] [address] Brokerage Manager: Ashkan Torres MD Chloride [Moles/Vol] 105 mmol/L Normal 98-107 [facility] Comment on above: Performed By: #### C VIANNEY HARRISCAL, REJEC #### [facility] [address] [place] [address] Brokerage Manager: Ashkan Torres MD CO2 [Moles/Vol] 26 mmol/L Normal 20-31 [facility] Comment on above: Performed By: #### C VIANNEY HARRISCAL, REJEC #### [facility] [address] [place] [address] Brokerage Manager: Ashkan Torres MD Creatinine [Mass/Vol] 0.41 mg/dL Low 0.50-0.90 [facility] Comment on above: Performed By: #### C STEVEN IOCAL, REJEC #### [facility] [address] [place] [address] Brokerage Manager: Ashkan Torres MD GFR/1.73 sq M.predicted among non-blacks MDRD (S/P/Bld) [Vol rate/Area] mL/min/{1.73_m2} Normal >60 [facility] Comment on above: Result Comment: Effective Dec 18, 2021 These results are not intended for use in patients <18 years of age. eGFR results are calculated without a race factor using the 2020 CKD-EPI equation. Careful clinical correlation is recommended, particularly when comparing to results calculated using previous equations. The CKD-EPI equation is less accurate in patients with extremes of muscle mass, extra-renal metabolism of creatine, excessive creatine ingestion, or following therapy that affects renal tubular secretion. Performed By: #### C SAIGE HARRIS, KYLE #### [facility] [address] [place] [address] Brokerage Manager: Ashkan Torres MD Glucose [Mass/Vol] 101 mg/dL High 70-99 [facility] Comment on above: Performed By: #### C SAIGE HARRIS, REJEC #### [facility] [address] [place] [address] Brokerage Manager: Ashkan Torres MD Sodium [Moles/Vol] 142 mmol/L Normal 135-144 [facility] Comment on above: Performed By: #### C SAIGE HARRIS REJEC #### [facility] [address] [place] [address] Brokerage Manager: Ashkan Torres MD Urea nitrogen [Mass/Vol] 15 mg/dL Normal 6-20 [facility] Comment on above: Performed By: #### C SAIGE HARRIS REJEC #### [facility] [address] [place] [address] Brokerage Manager: Ashkan Torres MD CBC with Diffon 02-24-2022 Abs. Basophil <0.03 Normal 0.00-0.20 [facility] Comment on above: Performed By: #### C SAIGE HARRIS, REJEC #### [facility] [address] [place] [address] Brokerage Manager: Ashkan Torres MD Abs.Imm.Granulocyte 0.11 k/uL Normal 0.00-0.30 [facility] Comment on above: Performed By: #### C VIANNEY HARRISCAL, REJEC #### [facility] [address] [place] [address] Brokerage Manager: Ashkan Torres MD Abs.Neutrophil (Seg) 4.57 k/uL Normal 1.50-8.10 [facility] Comment on above: Performed By: #### C DP, IOCAL, REJEC #### [address] [address] Brokerage Manager: Ashkan Torres MD Basophils/100 WBC (Bld) 0 % Normal 0-2 [facility] Comment on above: Performed By: #### C DP, IOCAL, REJEC #### [address] [address] Brokerage Manager: Ashkan Torres MD Eosinophils (Bld) [#/Vol] 0.08 10*3/uL Normal 0.00-0.44 [facility] Comment on above: Performed By: #### C DP, IOCAL, REJEC #### [address] [address] Brokerage Manager: Ashkan Torres MD Eosinophils/100 WBC (Bld) 1 % Normal 1-4 [facility] Comment on above: Performed By: #### C DP, IOCAL, REJEC #### [address] [address] Brokerage Manager: Ashkan Torres MD Erythrocyte distribution width (RBC) [Ratio] 15.3 % High 11.8-14.4 [facility] Comment on above: Performed By: #### C DP, IOCAL, REJEC #### [facility] [address] [place] [address] Brokerage Manager: Ashkan Torres MD Hematocrit (Bld) [Volume fraction] 33.3 % Low 36.3-47.1 [facility] Comment on above: Performed By: #### C DP, IOCAL, REJEC #### [facility] [address] [place] [address] Brokerage Manager: Ashkan Torres MD Hemoglobin (Bld) [Mass/Vol] 10.3 g/dL Low 11.9-15.1 [facility] Comment on above: Performed By: #### C VIANNEY HARRISCAL, REJEC #### [address] [address] Brokerage Manager: Ashkan Torres MD Immature granulocytes/100 WBC (Bld) 1 % High 0 [facility] Comment on above: Performed By: #### C STEVEN IOCAL, REJEC #### [address] [address] Brokerage Manager: Ashkan Torres MD Lymphocytes (Bld) [#/Vol] 2.96 10*3/uL Normal 1.10-3.70 [facility] Comment on above: Performed By: #### C VIANNEY HARRISCAL, REJEC #### [address] [address] Brokerage Manager: Ashkan Torres MD Lymphocytes/100 WBC (Bld) 35 % Normal 24-43 [facility] Comment on above: Performed By: #### C STEVEN IOCAL, REJEC #### [address] [address] Brokerage Manager: Ashkan Torres MD MCH (RBC) [Entitic mass] 29.9 pg Normal 25.2-33.5 [facility] Comment on above: Performed By: #### C STEVEN IOCAL, REJEC #### [facility] [address] [place] [address] Brokerage Manager: Ashkan Torres MD MCHC (RBC) [Mass/Vol] 30.9 g/dL Normal 28.4-34.8 [facility] Comment on above: Performed By: #### C STEVEN IOCAL, REJEC #### [facility] [address] [place] [address] Brokerage Manager: Ashkan Torres MD MCV (RBC) [Entitic vol] 96.8 fL Normal 82.6-102.9 [facility] Comment on above: Performed By: #### C VIANNEY HARRISCAL, REJEC #### [address] [address] Brokerage Manager: Ashkan Torres MD Monocytes (Bld) [#/Vol] 0.63 10*3/uL Normal 0.10-1.20 [facility] Comment on above: Performed By: #### C STEVEN IOCAL, REJEC #### [address] [address] Brokerage Manager: Ashkan Torres MD Monocytes/100 WBC (Bld) 8 % Normal 3-12 [facility] Comment on above: Performed By: #### C VIANNEY HARRISCAL, REJEC #### [place] [address] Brokerage Manager: Ashkan Torres MD Neutrophil (Seg) 55 % Normal 36-65 [facility] Comment on above: Performed By: #### C VIANNEY HARRISCAL, REJEC #### [address] [address] Brokerage Manager: Ashkan Torres MD NRBC Automated 0.0 per 100 WBC Normal 0.0 [facility] Comment on above: Performed By: #### C STEVEN IOCAL, REJEC #### [address] [address] Brokerage Manager: Ashkan Torres MD Platelet mean volume (Bld) [Entitic vol] 9.7 fL Normal 8.1-13.5 [facility] Comment on above: Performed By: #### C STEVEN IOCAL, REJEC #### [address] [address] Brokerage Manager: Ashkan Torres MD Platelets (Bld) [#/Vol] 253 10*3/uL Normal 138-453 [facility] Comment on above: Performed By: #### C SAIGE HARRIS, REJEC #### [address] [address] Brokerage Manager: Ashkan Torres MD RBC (Bld) [#/Vol] 3.44 10*6/uL Low 3.95-5.11 [facility] Comment on above: Performed By: #### C SAIGE HARRIS, REJEC #### [facility] [address] [place] [address] Brokerage Manager: Ashkan Torres MD RBC morphology finding Nom (Bld) ANISOCYTOSIS PRESENT Normal [facility] Comment on above: Performed By: #### C SAIGE HARRIS, REJEC #### [facility] [address] [place] [address] Brokerage Manager: Ashkan Torres MD WBC (Bld) [#/Vol] 8.4 10*3/uL Normal 3.5-11.3 [facility] Comment on above: Performed By: #### C SAIGE HARRIS, REJJOVITA #### [facility] [address] [place] [address] Brokerage Manager: Ashkan Torres MD Magnesiumon 02-24-2022 Magnesium [Mass/Vol] 2.2 mg/dL Normal 1.6-2.6 [facility] Comment on above: Performed By: #### C SAIGE HARRIS, REJEC #### [facility] [address] [place] [address] Brokerage Manager: Ashkan Torres MD Basic Metab w/rfx MGon 02-23 Anion gap [Moles/Vol] 10 mmol/L Normal 9-17 [facility] Comment on above: Performed By: #### I OCAL #### [address] [address] Brokerage Manager: Ashkan Torres MD Calcium [Mass/Vol] 8.4 mg/dL Low 8.6-10.4 [facility] Comment on above: Performed By: #### I OCAL #### [address] [address] Brokerage Manager: Ashkan Torres MD Chloride [Moles/Vol] 104 mmol/L Normal 98-107 [facility] Comment on above: Performed By: #### I OCAL #### [facility] [address] [place] [address] Brokerage Manager: Ashkan Torres MD CO2 [Moles/Vol] 25 mmol/L Normal 20-31 [facility] Comment on above: Performed By: #### I OCAL #### [address] [address] Brokerage Manager: Ashkan Torres MD Creatinine [Mass/Vol] 0.40 mg/dL Low 0.50-0.90 [facility] Comment on above: Performed By: #### I OCAL #### [address] [address] Brokerage Manager: Ashkan Torres MD GFR/1.73 sq M.predicted among non-blacks MDRD (S/P/Bld) [Vol rate/Area] mL/min/{1.73_m2} Normal >60 [facility] Comment on above: Result Comment: Effective Dec 18, 2021 These results are not intended for use in patients <18 years of age. eGFR results are calculated without a race factor using the 2020 CKD-EPI equation. Careful clinical correlation is recommended, particularly when comparing to results calculated using previous equations. The CKD-EPI equation is less accurate in patients with extremes of muscle mass, extra-renal metabolism of creatine, excessive creatine ingestion, or following therapy that affects renal tubular secretion. Performed By: #### I OCAL #### [address] [address] Brokerage Manager: Ashkan Torres MD Glucose [Mass/Vol] 117 mg/dL High 70-99 [facility] Comment on above: Performed By: #### I OCAL #### [address] [address] Brokerage Manager: Ashkan Torres MD Potassium [Moles/Vol] 3.1 mmol/L Low 3.7-5.3 [facility] Comment on above: Performed By: #### I OCAL #### [address] [address] Brokerage Manager: Ashkan Torres MD Sodium [Moles/Vol] 139 mmol/L Normal 135-144 [facility] Comment on above: Performed By: #### I OCAL #### [address] [address] Brokerage Manager: Ashkan Torres MD Urea nitrogen [Mass/Vol] 10 mg/dL Normal 6-20 [facility] Comment on above: Performed By: #### I OCAL #### [address] [address] Brokerage Manager: Ashkan Torres MD Magnesiumon 02-23-2022 Magnesium [Mass/Vol] 2.3 mg/dL Normal 1.6-2.6 [facility] Comment on above: Performed By: #### I OCAL #### [address] [address] Brokerage Manager: Ashkan Torres MD Basic Metabolic Profon 02-22 Anion gap [Moles/Vol] 14 mmol/L Normal 9-17 [facility] Comment on above: Performed By: #### C SAIGE HARRIS, KYLE #### [address] [address] Brokerage Manager: Ashkan Torres MD Calcium [Mass/Vol] 8.1 mg/dL Low 8.6-10.4 [facility] Comment on above: Performed By: #### C DP IOCAL, REJEC #### [facility] [address] [place] [address] Brokerage Manager: Ashkan Torres MD Chloride [Moles/Vol] 104 mmol/L Normal 98-107 [facility] Comment on above: Performed By: #### C DP IOCAL, REJEC #### [facility] [address] [place] [address] Brokerage Manager: Ashkan Torres MD CO2 [Moles/Vol] 23 mmol/L Normal 20-31 [facility] Comment on above: Performed By: #### C STEVEN IOCAL, REJEC #### [facility] [address] [place] [address] Brokerage Manager: Ashkan Torres MD Creatinine [Mass/Vol] 0.33 mg/dL Low 0.50-0.90 [facility] Comment on above: Performed By: #### C STEVEN IOCAL, REJEC #### [facility] [address] [place] [address] Brokerage Manager: Ashkan Torres MD GFR/1.73 sq M.predicted among non-blacks MDRD (S/P/Bld) [Vol rate/Area] mL/min/{1.73_m2} Normal >60 [facility] Comment on above: Result Comment: Effective Dec 18, 2021 These results are not intended for use in patients <18 years of age. eGFR results are calculated without a race factor using the 2020 CKD-EPI equation. Careful clinical correlation is recommended, particularly when comparing to results calculated using previous equations. The CKD-EPI equation is less accurate in patients with extremes of muscle mass, extra-renal metabolism of creatine, excessive creatine ingestion, or following therapy that affects renal tubular secretion. Performed By: #### C DP, IOCAL, REJEC #### [facility] [address] [place] [address] Brokerage Manager: Ashkan Torres MD Glucose [Mass/Vol] 98 mg/dL Normal 70-99 [facility] Comment on above: Performed By: #### C VIANNEY HARRISCAL, REJEC #### [facility] [address] [place] [address] Brokerage Manager: Ashkan Torres MD Potassium [Moles/Vol] 3.4 mmol/L Low 3.7-5.3 [facility] Comment on above: Result Comment: SPEC IMEN SLIGHTLY HEMOLYZED, RESULTS MAY BE ADVERSELY AFFECTED. Performed By: #### C STEVEN IOCAL, REJEC #### [facility] [address] [place] [address] Brokerage Manager: Ashkan Torres MD Sodium [Moles/Vol] 141 mmol/L Normal 135-144 [facility] Comment on above: Performed By: #### C VIANNEY HARRISCAL, REJEC #### [facility] [address] [place] [address] Brokerage Manager: Ashkan Torres MD Urea nitrogen [Mass/Vol] 8 mg/dL Normal 6-20 [facility] Comment on above: Performed By: #### C SAIGE HARRIS REJEC #### [facility] [address] [place] [address] Brokerage Manager: Ashkan Torres MD CBC with Diffon 02-22-2022 Abs. Basophil <0.03 Normal 0.00-0.20 [facility] Comment on above: Performed By: #### C VIANNEY HARRISCAL, REJEC #### [facility] [address] [place] [address] Brokerage Manager: Ashkan Torres MD Abs.Imm.Granulocyte 0.24 k/uL Normal 0.00-0.30 [facility] Comment on above: Performed By: #### C VIANNEY HARRISCAL, REJEC #### [facility] [address] [place] [address] Brokerage Manager: Ashkan Torres MD Abs.Neutrophil (Seg) 8.32 k/uL High 1.50-8.10 [facility] Comment on above: Performed By: #### C DP IOCAL, REJEC #### [address] [address] Brokerage Manager: Ashkan Torres MD Basophils/100 WBC (Bld) 0 % Normal 0-2 [facility] Comment on above: Performed By: #### C DP, IOCAL, REJEC #### [address] [address] Brokerage Manager: Ashkan Torres MD Eosinophils (Bld) [#/Vol] 0.05 10*3/uL Normal 0.00-0.44 [facility] Comment on above: Performed By: #### C DP, IOCAL, REJEC #### [address] [address] Brokerage Manager: Ashkan Torres MD Eosinophils/100 WBC (Bld) 0 % Low 1-4 [facility] Comment on above: Performed By: #### C DP IOCAL, REJEC #### [facility] [address] [place] [address] Brokerage Manager: Ashkan Torres MD Erythrocyte distribution width (RBC) [Ratio] 14.6 % High 11.8-14.4 [facility] Comment on above: Performed By: #### C DP IOCAL, REJEC #### [facility] [address] [place] [address] Brokerage Manager: Ashkan Torres MD Hematocrit (Bld) [Volume fraction] 32.9 % Low 36.3-47.1 [facility] Comment on above: Performed By: #### C DP, IOCAL, REJEC #### [facility] [address] [place] [address] Brokerage Manager: Ashkan Torres MD Hemoglobin (Bld) [Mass/Vol] 10.5 g/dL Low 11.9-15.1 [facility] Comment on above: Performed By: #### C DP, IOCAL, REJEC #### [address] [address] Brokerage Manager: Ashakn Torres MD Immature granulocytes/100 WBC (Bld) 2 % High 0 [facility] Comment on above: Performed By: #### C DP, IOCAL, REJEC #### [address] [address] Brokerage Manager: Ashkan Torres MD Lymphocytes (Bld) [#/Vol] 1.86 10*3/uL Normal 1.10-3.70 [facility] Comment on above: Performed By: #### C DP, IOCAL, REJEC #### [address] [address] Brokerage Manager: Ashkan Torres MD Lymphocytes/100 WBC (Bld) 17 % Low 24-43 [facility] Comment on above: Performed By: #### C DP IOCAL, REJEC #### [facility] [address] [place] [address] Brokerage Manager: Ashkan Torres MD MCH (RBC) [Entitic mass] 29.7 pg Normal 25.2-33.5 [facility] Comment on above: Performed By: #### C DP, IOCAL, REJEC #### [facility] [address] [place] [address] Brokerage Manager: Ashkan Torres MD MCHC (RBC) [Mass/Vol] 31.9 g/dL Normal 28.4-34.8 [facility] Comment on above: Performed By: #### C DP, IOCAL, REJEC #### [facility] [address] [place] [address] Brokerage Manager: Ashkan Torres MD MCV (RBC) [Entitic vol] 92.9 fL Normal 82.6-102.9 [facility] Comment on above: Performed By: #### C DP IOCAL, REJEC #### [address] [address] Brokerage Manager: Ashkan Torres MD Monocytes (Bld) [#/Vol] 0.80 10*3/uL Normal 0.10-1.20 [facility] Comment on above: Performed By: #### C DP, IOCAL, REJEC #### [address] [address] Brokerage Manager: Ashkan Torres MD Monocytes/100 WBC (Bld) 7 % Normal 3-12 [facility] Comment on above: Performed By: #### C DP, IOCAL, REJEC #### [address] [address] Brokerage Manager: Ashkan Torres MD Neutrophil (Seg) 74 % High 36-65 [facility] Comment on above: Performed By: #### C DP, IOCAL, REJEC #### [address] [address] Brokerage Manager: Ashkan Torres MD NRBC Automated 0.0 per 100 WBC Normal 0.0 [facility] Comment on above: Performed By: #### C DP, IOCAL, REJEC #### [address] [address] Brokerage Manager: Ashkan Torres MD Platelet mean volume (Bld) [Entitic vol] 9.9 fL Normal 8.1-13.5 [facility] Comment on above: Performed By: #### C DP, IOCAL, REJEC #### [address] [address] Brokerage Manager: Ashkan Torres MD Platelets (Bld) [#/Vol] 253 10*3/uL Normal 138-453 [facility] Comment on above: Performed By: #### C STEVEN IOCAL, REJEC #### [facility] [address] [place] [address] Brokerage Manager: Ashkan Torres MD RBC (Bld) [#/Vol] 3.54 10*6/uL Low 3.95-5.11 [facility] Comment on above: Performed By: #### C DP IOCAL, REJEC #### [facility] [address] [place] [address] Brokerage Manager: Ashkan Torres MD RBC morphology finding Nom (Bld) ANISOCYTOSIS PRESENT Normal [facility] Comment on above: Performed By: #### C STEVEN IOCAL, REJEC #### [facility] [address] [place] [address] Brokerage Manager: Ashkan Torres MD WBC (Bld) [#/Vol] 11.3 10*3/uL Normal 3.5-11.3 [facility] Comment on above: Performed By: #### C VIANNEY HARRISCAL, REJEC #### [facility] [address] [place] [address] Brokerage Manager: Ashkan Torres MD Calcium, Ionicon 02-22-2022 Calcium [Moles/Vol] 1.07 mmol/L Low 1.13-1.33 [facility] Comment on above: Performed By: #### C STEVEN IOCAL, REJEC #### [facility] [address] [place] [address] Brokerage Manager: Ashkan Torres MD Magnesiumon 02-22-2022 Magnesium [Mass/Vol] 1.9 mg/dL Normal 1.6-2.6 [facility] Comment on above: Performed By: #### C STEVEN IOCAL, REJEC #### [facility] [address] [place] [address] Brokerage Manager: Ashkan Torres MD Phosphorus, Inorg.on 022 Phosphorus, Inorg. 2.7 mg/dL Normal 2.6-4.5 [facility] Comment on above: Performed By: #### C DPSAIGE, KYLE #### [facility] [address] [place] [address] Brokerage Manager: Ashkan Torres MD Basic Metab w/rfx MGon 02-21 Potassium [Moles/Vol] 3.5 mmol/L Low 3.7-5.3 [facility] Comment on above: Performed By: #### B MPX, MG #### [facility] [address] [place] [address] Brokerage Manager: Ashkan Torres MD Anion gap [Moles/Vol] 14 mmol/L Normal 9-17 [facility] Comment on above: Performed By: #### B MPX, MG #### [facility] [address] [place] [address] Brokerage Manager: Ashkan Torres MD Calcium [Mass/Vol] 8.4 mg/dL Low 8.6-10.4 [facility] Comment on above: Performed By: #### B MPX, MG #### [facility] [address] [place] [address] Brokerage Manager: Ashkan Torres MD Chloride [Moles/Vol] 102 mmol/L Normal 98-107 [facility] Comment on above: Performed By: #### B MPX, MG #### [facility] [address] [place] [address] Brokerage Manager: Ashkan Torres MD CO2 [Moles/Vol] 26 mmol/L Normal 20-31 [facility] Comment on above: Performed By: #### B MPX, MG #### [facility] [address] [place] [address] Brokerage Manager: Ashkan Torres MD Creatinine [Mass/Vol] 0.36 mg/dL Low 0.50-0.90 [facility] Comment on above: Performed By: #### B MPX, MG #### [facility] [address] [place] [address] Brokerage Manager: Ashkan Torres MD GFR/1.73 sq M.predicted among non-blacks MDRD (S/P/Bld) [Vol rate/Area] mL/min/{1.73_m2} Normal >60 [facility] Comment on above: Result Comment: Effective Dec 18, 2021 These results are not intended for use in patients <18 years of age. eGFR results are calculated without a race factor using the 2020 CKD-EPI equation. Careful clinical correlation is recommended, particularly when comparing to results calculated using previous equations. The CKD-EPI equation is less accurate in patients with extremes of muscle mass, extra-renal metabolism of creatine, excessive creatine ingestion, or following therapy that affects renal tubular secretion. Performed By: #### B MPX, MG #### [facility] [address] [place] [address] Brokerage Manager: Ashkan Torres MD Glucose [Mass/Vol] 126 mg/dL High 70-99 [facility] Comment on above: Performed By: #### B MPX, MG #### [facility] [address] [place] [address] Brokerage Manager: Ashkan Torres MD Sodium [Moles/Vol] 142 mmol/L Normal 135-144 [facility] Comment on above: Performed By: #### B MPX, MG #### [facility] [address] [place] [address] Brokerage Manager: Ashkan Torres MD Urea nitrogen [Mass/Vol] 9 mg/dL Normal 6-20 [facility] Comment on above: Performed By: #### B MPX, MG #### [facility] [address] [place] [address] Brokerage Manager: Ashkan Torres MD Basic Metabolic Profon 02-21 Anion gap [Moles/Vol] 12 mmol/L Normal 9-17 [facility] Comment on above: Performed By: #### B MP, IOCAL, CDP, EDDIE, MG #### [facility] [address] [place] [address] Brokerage Manager: Ashkan Torres MD Calcium [Mass/Vol] 8.3 mg/dL Low 8.6-10.4 [facility] Comment on above: Performed By: #### B MP, IOCAL, CDP, EDDIE, MG #### [facility] [address] [place] [address] Brokerage Manager: Ashkan Torres MD Chloride [Moles/Vol] 104 mmol/L Normal 98-107 [facility] Comment on above: Performed By: #### B MP, IOCAL, CDP, EDDIE, MG #### [facility] [address] [place] [address] Brokerage Manager: Ashkan Torres MD CO2 [Moles/Vol] 26 mmol/L Normal 20-31 [facility] Comment on above: Performed By: #### B MP, IOCAL, CDP, EDDIE, MG #### [facility] [address] [place] [address] Brokerage Manager: Ashkan Torres MD Creatinine [Mass/Vol] 0.32 mg/dL Low 0.50-0.90 [facility] Comment on above: Performed By: #### B MP, IOCAL, CDP, EDDIE, MG #### [facility] [address] [place] [address] Brokerage Manager: Ashkan Torres MD GFR/1.73 sq M.predicted among non-blacks MDRD (S/P/Bld) [Vol rate/Area] mL/min/{1.73_m2} Normal >60 [facility] Comment on above: Result Comment: Effective Dec 18, 2021 These results are not intended for use in patients <18 years of age. eGFR results are calculated without a race factor using the 2020 CKD-EPI equation. Careful clinical correlation is recommended, particularly when comparing to results calculated using previous equations. The CKD-EPI equation is less accurate in patients with extremes of muscle mass, extra-renal metabolism of creatine, excessive creatine ingestion, or following therapy that affects renal tubular secretion. Performed By: #### B MP, IOCAL, CDP, EDDIE, MG #### [facility] [address] [place] [address] Brokerage Manager: Ashkan Torres MD Glucose [Mass/Vol] 125 mg/dL High 70-99 [facility] Comment on above: Performed By: #### B MP, IOCAL, CDP, EDDIE, MG #### [facility] [address] [place] [address] Brokerage Manager: Ashkan Torres MD Potassium [Moles/Vol] 3.1 mmol/L Low 3.7-5.3 [facility] Comment on above: Performed By: #### B MP, IOCAL, CDP, EDDIE, MG #### [facility] [address] [place] [address] Brokerage Manager: Ashkan Torres MD Sodium [Moles/Vol] 142 mmol/L Normal 135-144 [facility] Comment on above: Performed By: #### B MP, IOCAL, CDP, EDDIE, MG #### [facility] [address] [place] [address] Brokerage Manager: Ashkan Torres MD Urea nitrogen [Mass/Vol] 9 mg/dL Normal 6-20 [facility] Comment on above: Performed By: #### B MP, IOCAL, CDP, EDDIE, MG #### [facility] [address] [place] [address] Brokerage Manager: Ashkan Torres MD CBC with Diffon 02-21-2022 Abs. Basophil 0.04 k/uL Normal 0.00-0.20 [facility] Comment on above: Performed By: #### B MP, IOCAL, CDP, EDDIE, MG #### [place] [address] Brokerage Manager: Ashkan Torres MD Abs.Imm.Granulocyte 0.38 k/uL High 0.00-0.30 [facility] Comment on above: Performed By: #### B MP, IOCAL, CDP, EDDIE, MG #### [place] [address] Brokerage Manager: Ashkan Torres MD Abs.Neutrophil (Seg) 9.82 k/uL High 1.50-8.10 [facility] Comment on above: Performed By: #### B MP, IOCAL, CDP, EDDIE, MG #### [place] [address] Brokerage Manager: Ashkan Torres MD Basophils/100 WBC (Bld) 0 % Normal 0-2 [facility] Comment on above: Performed By: #### B MP, IOCAL, CDP, EDDIE, MG #### [place] [address] Brokerage Manager: Ashkan Torres MD Eosinophils (Bld) [#/Vol] 0.03 10*3/uL Normal 0.00-0.44 [facility] Comment on above: Performed By: #### B MP, IOCAL, CDP, EDDIE, MG #### [place] [address] Brokerage Manager: Ashkan Torres MD Eosinophils/100 WBC (Bld) 0 % Low 1-4 [facility] Comment on above: Performed By: #### B MP, IOCAL, CDP, EDDIE, MG #### [place] [address] Brokerage Manager: Ashkan Torres MD Erythrocyte distribution width (RBC) [Ratio] 15.1 % High 11.8-14.4 [facility] Comment on above: Performed By: #### B MP, IOCAL, CDP, EDDIE, MG #### [address] [address] Brokerage Manager: Ashkan Torres MD Hematocrit (Bld) [Volume fraction] 34.4 % Low 36.3-47.1 [facility] Comment on above: Performed By: #### B MP, IOCAL, CDP, EDDIE, MG #### [address] [address] Brokerage Manager: Ashkan Torres MD Hemoglobin (Bld) [Mass/Vol] 11.0 g/dL Low 11.9-15.1 [facility] Comment on above: Performed By: #### B MP, IOCAL, CDP, EDDIE, MG #### [address] [address] Brokerage Manager: Ashkan Torres MD Immature granulocytes/100 WBC (Bld) 3 % High 0 [facility] Comment on above: Performed By: #### B MP, IOCAL, CDP, EDDIE, MG #### [address] [address] Brokerage Manager: Ashkan Torres MD Lymphocytes (Bld) [#/Vol] 1.89 10*3/uL Normal 1.10-3.70 [facility] Comment on above: Performed By: #### B MP, IOCAL, CDP, EDDIE, MG #### [address] [address] Brokerage Manager: Ashkan Torres MD Lymphocytes/100 WBC (Bld) 15 % Low 24-43 [facility] Comment on above: Performed By: #### B MP, IOCAL, CDP, EDDIE, MG #### [address] [address] Brokerage Manager: Ashkan Torres MD MCH (RBC) [Entitic mass] 29.9 pg Normal 25.2-33.5 [facility] Comment on above: Performed By: #### B MP, IOCAL, CDP, EDDIE, MG #### [address] [address] Brokerage Manager: Ashkan Torres MD MCHC (RBC) [Mass/Vol] 32.0 g/dL Normal 28.4-34.8 [facility] Comment on above: Performed By: #### B MP, IOCAL, CDP, EDDIE, MG #### [address] [address] Brokerage Manager: Ashkan Torres MD MCV (RBC) [Entitic vol] 93.5 fL Normal 82.6-102.9 [facility] Comment on above: Performed By: #### B MP, IOCAL, CDP, EDDIE, MG #### [address] [address] Brokerage Manager: Ashkan Torres MD Monocytes (Bld) [#/Vol] 0.85 10*3/uL Normal 0.10-1.20 [facility] Comment on above: Performed By: #### B MP, IOCAL, CDP, EDDIE, MG #### [address] [address] Brokerage Manager: Ashkan Torres MD Monocytes/100 WBC (Bld) 7 % Normal 3-12 [facility] Comment on above: Performed By: #### B MP, IOCAL, CDP, EDDIE, MG #### [address] [address] Brokerage Manager: Ashkan Torres MD Neutrophil (Seg) 75 % High 36-65 [facility] Comment on above: Performed By: #### B MP, IOCAL, CDP, EDDIE, MG #### [address] [address] Brokerage Manager: Ashkan Torres MD NRBC Automated 0.0 per 100 WBC Normal 0.0 [facility] Comment on above: Performed By: #### B MP, IOCAL, CDP, EDDIE, MG #### [address] [address] Brokerage Manager: Ashkan Torres MD Platelet mean volume (Bld) [Entitic vol] 9.6 fL Normal 8.1-13.5 [facility] Comment on above: Performed By: #### B MP, IOCAL, CDP, EDDIE, MG #### [address] [address] Brokerage Manager: Ashkan Torres MD Platelets (Bld) [#/Vol] 247 10*3/uL Normal 138-453 [facility] Comment on above: Performed By: #### B MP, IOCAL, CDP, EDDIE, MG #### [address] [address] Brokerage Manager: Ashkan Torres MD RBC (Bld) [#/Vol] 3.68 10*6/uL Low 3.95-5.11 [facility] Comment on above: Performed By: #### B MP, IOCAL, CDP, EDDIE, MG #### [address] [address] Brokerage Manager: Ashkan Torres MD RBC morphology finding Nom (Bld) ANISOCYTOSIS PRESENT Normal [facility] Comment on above: Performed By: #### B MP, IOCAL, CDP, EDDIE, MG #### [address] [address] Brokerage Manager: Ashkan Torres MD WBC (Bld) [#/Vol] 13.0 10*3/uL High 3.5-11.3 [facility] Comment on above: Performed By: #### B MP, IOCAL, CDP, EDDIE, MG #### [address] [address] Brokerage Manager: Ashkan Torres MD Calcium, Ionicon 02-21-2022 Calcium [Moles/Vol] 1.08 mmol/L Low 1.13-1.33 [facility] Comment on above: Performed By: #### B MP, IOCAL, CDP, EDDIE, MG #### [facility] [address] [place] [address] Brokerage Manager: Ashkan Torres MD Magnesiumon 02-21-2022 Magnesium [Mass/Vol] 1.9 mg/dL Normal 1.6-2.6 [facility] Comment on above: Performed By: #### C DP, IOCAL, REJEC #### [facility] [address] [place] [address] Brokerage Manager: Ashkan Torres MD Magnesium [Mass/Vol] 2.0 mg/dL Normal 1.6-2.6 [facility] Comment on above: Performed By: #### B MP, IOCAL, CDP, EDDIE, MG #### [facility] [address] [place] [address] Brokerage Manager: Ashkan Torres MD Phosphorus, Inorg.on Phosphorus, Inorg. 2.4 mg/dL Low 2.6-4.5 [facility] Comment on above: Performed By: #### B MP, IOCAL, CDP, EDDIE, MG #### [facility] [address] [place] [address] Brokerage Manager: Ashkan Torres MD Specimen Rejectionon Reason for rejection Unable to perform testing: Specimen quantity not sufficient. Normal [facility] Comment on above: Performed By: #### I OCAL #### [facility] [address] [place] [address] Brokerage Manager: Ashkan Torres MD Source of sample .BLOOD Normal [facility] Comment on above: Performed By: #### I OCAL #### [address] [address] Brokerage Manager: Ashkan Torres MD Test ordered BMPX FLOOR NOT ANSWERING PHONE CALLED 2X Normal [facility] Comment on above: Performed By: #### I OCAL #### [address] [address] Brokerage Manager: Ashkan Torres MD Triglycerideson 02-21-2022 Triglyceride [Mass/Vol] 199 mg/dL High <150 [facility] Comment on above: Result Comment: Triglyceride Guidelines: <150 Desirable 150-199 Borderline 200-499 High >499 Very high Based on AHA Guidelines for fasting triglyceride, December 2011. Performed By: #### B MP, IOCAL, CDP, EDDIE, MG #### [address] [address] Brokerage Manager: Ashkan Torres MD Basic Metabolic Profon 02-20 Anion gap [Moles/Vol] 8 mmol/L Low 9-17 [facility] Comment on above: Performed By: #### B MP, IOCAL, CDP, EDDIE, MG #### [address] [address] Brokerage Manager: Ashkan Torres MD Calcium [Mass/Vol] 8.2 mg/dL Low 8.6-10.4 [facility] Comment on above: Performed By: #### B MP, IOCAL, CDP, EDDIE, MG #### [facility] [address] [place] [address] Brokerage Manager: Ashkan Torres MD Chloride [Moles/Vol] 101 mmol/L Normal 98-107 [facility] Comment on above: Performed By: #### B MP, IOCAL, CDP, EDDIE, MG #### [facility] [address] [place] [address] Brokerage Manager: Ashkan Torres MD CO2 [Moles/Vol] 30 mmol/L Normal 20-31 [facility] Comment on above: Performed By: #### B MP, IOCAL, CDP, EDDIE, MG #### [facility] [address] [place] [address] Brokerage Manager: Ashkan Torres MD Creatinine [Mass/Vol] 0.29 mg/dL Low 0.50-0.90 [facility] Comment on above: Performed By: #### B MP, IOCAL, CDP, EDDIE, MG #### [facility] [address] [place] [address] Brokerage Manager: Ashkan Torres MD GFR/1.73 sq M.predicted among non-blacks MDRD (S/P/Bld) [Vol rate/Area] mL/min/{1.73_m2} Normal >60 [facility] Comment on above: Result Comment: Effective Dec 18, 2021 These results are not intended for use in patients <18 years of age. eGFR results are calculated without a race factor using the 2020 CKD-EPI equation. Careful clinical correlation is recommended, particularly when comparing to results calculated using previous equations. The CKD-EPI equation is less accurate in patients with extremes of muscle mass, extra-renal metabolism of creatine, excessive creatine ingestion, or following therapy that affects renal tubular secretion. Performed By: #### B MP, IOCAL, CDP, EDDIE, MG #### [facility] [address] [place] [address] Brokerage Manager: Ashkan Torres MD Glucose [Mass/Vol] 184 mg/dL High 70-99 [facility] Comment on above: Performed By: #### B MP, IOCAL, CDP, EDDIE, MG #### [facility] [address] [place] [address] Brokerage Manager: Ashkan Torres MD Potassium [Moles/Vol] 3.9 mmol/L Normal 3.7-5.3 [facility] Comment on above: Performed By: #### B MP, IOCAL, CDP, EDDIE, MG #### [facility] [address] [place] [address] Brokerage Manager: Ashkan Torres MD Sodium [Moles/Vol] 139 mmol/L Normal 135-144 [facility] Comment on above: Performed By: #### B MP, IOCAL, CDP, EDDIE, MG #### [facility] [address] [place] [address] Brokerage Manager: Ashkan Torres MD Urea nitrogen [Mass/Vol] 15 mg/dL Normal 6-20 [facility] Comment on above: Performed By: #### B MP, IOCAL, CDP, EDDIE, MG #### [facility] [address] [place] [address] Brokerage Manager: Ashkan Torres MD CBC with Diffon 02-20-2022 Abs. Basophil 0.00 k/uL Normal 0.0-0.2 [facility] Comment on above: Performed By: #### B MP, IOCAL, CDP, EDDIE, MG #### [facility] [address] [place] [address] Brokerage Manager: Ashkan Torres MD Abs.Imm.Granulocyte 0.27 k/uL Normal 0.00-0.30 [facility] Comment on above: Performed By: #### B MP, IOCAL, CDP, EDDIE, MG #### [facility] [address] [place] [address] Brokerage Manager: Ashkan Torres MD Abs.Neutrophil (Seg) 11.17 k/uL High 1.8-7.7 [facility] Comment on above: Performed By: #### B MP, IOCAL, CDP, EDDIE, MG #### [facility] [address] [place] [address] Brokerage Manager: Ashkan Torres MD Basophils/100 WBC (Bld) 0 % Normal 0-2 [facility] Comment on above: Performed By: #### B MP, IOCAL, CDP, EDDIE, MG #### [facility] [address] [place] [address] Brokerage Manager: Ashkan Torres MD Eosinophils (Bld) [#/Vol] 0.00 10*3/uL Normal 0.0-0.4 [facility] Comment on above: Performed By: #### B MP, IOCAL, CDP, EDDIE, MG #### [address] [address] Brokerage Manager: Ashkan Torres MD Eosinophils/100 WBC (Bld) 0 % Low 1-4 [facility] Comment on above: Performed By: #### B MP, IOCAL, CDP, EDDIE, MG #### [place] [address] Brokerage Manager: Ashkan Torres MD Immature granulocytes/100 WBC (Bld) 2 % High 0 [facility] Comment on above: Performed By: #### B MP, IOCAL, CDP, EDDIE, MG #### [place] [address] Brokerage Manager: Ashkan Torres MD Lymphocytes (Bld) [#/Vol] 1.33 10*3/uL Normal 1.0-4.8 [facility] Comment on above: Performed By: #### B MP, IOCAL, CDP, EDDIE, MG #### [place] [address] Brokerage Manager: Ashkan Torres MD Lymphocytes/100 WBC (Bld) 10 % Low 24-44 [facility] Comment on above: Performed By: #### B MP, IOCAL, CDP, EDDIE, MG #### [facility] [address] [place] [address] Brokerage Manager: Ashkan Torres MD Monocytes (Bld) [#/Vol] 0.53 10*3/uL Normal 0.1-0.8 [facility] Comment on above: Performed By: #### B MP, IOCAL, CDP, EDDIE, MG #### [address] [address] Brokerage Manager: Ashkan Torres MD Monocytes/100 WBC (Bld) 4 % Normal 1-7 [facility] Comment on above: Performed By: #### B MP, IOCAL, CDP, EDDIE, MG #### [address] [address] Brokerage Manager: Ashkan Torres MD Morphology Jose Armando (Bld) [Interp] ANISOCYTOSIS PRESENT Normal [facility] Comment on above: Performed By: #### B MP, IOCAL, CDP, EDDIE, MG #### [address] [address] Brokerage Manager: Ashkan Torres MD Neutrophil (Seg) 84 % High 36-66 [place] [facility] Comment on above: Performed By: #### B MP, IOCAL, CDP, EDDIE, MG #### [address] [address] Brokerage Manager: Ashkan Torres MD Erythrocyte distribution width (RBC) [Ratio] 15.1 % High 11.8-14.4 [facility] Comment on above: Performed By: #### B MP, IOCAL, CDP, EDDIE, MG #### [address] [address] Brokerage Manager: Ashkan Torres MD Hematocrit (Bld) [Volume fraction] 34.6 % Low 36.3-47.1 [facility] Comment on above: Performed By: #### B MP, IOCAL, CDP, EDDIE, MG #### [address] [address] Brokerage Manager: Ashkan Torres MD Hemoglobin (Bld) [Mass/Vol] 10.6 g/dL Low 11.9-15.1 [facility] Comment on above: Performed By: #### B MP, IOCAL, CDP, EDDIE, MG #### [address] [address] Brokerage Manager: Ashkan Torres MD MCH (RBC) [Entitic mass] 29.4 pg Normal 25.2-33.5 [facility] Comment on above: Performed By: #### B MP, IOCAL, CDP, EDDIE, MG #### [address] [address] Brokerage Manager: Ashkan Torres MD MCHC (RBC) [Mass/Vol] 30.6 g/dL Normal 28.4-34.8 [facility] Comment on above: Performed By: #### B MP, IOCAL, CDP, EDDIE, MG #### [address] [address] Brokerage Manager: Ashkan oTrres MD MCV (RBC) [Entitic vol] 96.1 fL Normal 82.6-102.9 [facility] Comment on above: Performed By: #### B MP, IOCAL, CDP, EDDIE, MG #### [address] [address] Brokerage Manager: Ashkan Torres MD NRBC Automated 0.0 per 100 WBC Normal 0.0 [facility] Comment on above: Performed By: #### B MP, IOCAL, CDP, EDDIE, MG #### [place] [address] Brokerage Manager: Ashkan Torres MD Platelet mean volume (Bld) [Entitic vol] 9.8 fL Normal 8.1-13.5 [facility] Comment on above: Performed By: #### B MP, IOCAL, CDP, EDDIE, MG #### [address] [address] Brokerage Manager: Ashkan Torres MD Platelets (Bld) [#/Vol] 237 10*3/uL Normal 138-453 [facility] Comment on above: Performed By: #### B MP, IOCAL, CDP, EDDIE, MG #### [facility] [address] [place] [address] Brokerage Manager: Ashkan Torres MD RBC ([facility]) [#/Vol] 3.60 10*6/uL Low 3.95-5.11 [facility] Comment on above: Performed By: #### B MP, IOCAL, CDP, EDDIE, MG #### [facility] [address] [place] [address] Brokerage Manager: Ashkan Torres MD WBC (d) [#/Vol] 13.3 10*3/uL High 3.5-11.3 [facility] Comment on above: Performed By: #### B MP, IOCAL, CDP, EDDIE, MG #### [facility] [address] [place] [address] Brokerage Manager: Ashkan Torres MD Calcium, Ionicon 02-20-2022 Calcium [Moles/Vol] 1.09 mmol/L Low 1.13-1.33 [facility] Comment on above: Performed By: #### B MP, IOCAL, CDP, EDDIE, MG #### [facility] [address] [place] [address] Brokerage Manager: Ashkan Torres MD Magnesiumon 02-20-2022 Magnesium [Mass/Vol] 2.0 mg/dL Normal 1.6-2.6 [facility] Comment on above: Performed By: #### B MP, IOCAL, CDP, EDDIE, MG #### [facility] [address] [place] [address] Brokerage Manager: Ashkan Torres MD Phosphorus, Inorg.on 022 Phosphorus, Inorg. 3.9 mg/dL Normal 2.6-4.5 [facility] Comment on above: Performed By: #### B MP, IOCAL, CDP, EDDIE, MG #### [facility] [address] [place] [address] [phone] Brokerage Manager: Ashkan Torres MD XR CHEST (SINGLE VIEW FRONTA L)on 02-20-2022 XR CHEST (SINGLE VIEW FRONTAL) EXAMINATION: ONE XRAY VIEW OF THE CHEST 02/20/2022 7:16 am COMPARISON: Chest x-ray dated 15 February 2022 HISTORY: ORDERING SYSTEM PROVIDED HISTORY: asthma exacerbation TECHNOLOGIST PROVIDED HISTORY: asthma exacerbation FINDINGS: Endotracheal tube tip is 1 cm above the kamryn. Enteric tube tip and side port below the diaphragm with the tip below the field of view. Diffuse bilateral airspace opacities. No pneumothorax or pleural effusion. Normal cardiomediastinal silhouette IMPRESSION: 1. Diffuse bilateral airspace opacities are concerning for multifocal pneumonia. 2. Endotracheal tube tip is 1 cm above the kamryn. Recommend retraction by 2.5 cm for optimal positioning. Interpreted by: Iker Castellanos MD Signed by: Iker Castellanos MD 02/20/22 Final result Normal [facility] Basic Metabolic Profon 02-19 Anion gap [Moles/Vol] 9 mmol/L Normal 9-17 [facility] Comment on above: Performed By: #### C VIANNEY HARRISCAL, REJEC #### [facility] [address] [place] [address] Brokerage Manager: Ashkan Torres MD Calcium [Mass/Vol] 7.9 mg/dL Low 8.6-10.4 [facility] Comment on above: Performed By: #### C VIANNEY HARRISCAL, REJEC #### [facility] [address] [place] [address] Brokerage Manager: Ashkan Torres MD Chloride [Moles/Vol] 102 mmol/L Normal 98-107 [facility] Comment on above: Performed By: #### C STEVEN IOCAL, REJEC #### [facility] [address] [place] [address] [phone] Brokerage Manager: Ashkan Torres MD CO2 [Moles/Vol] 28 mmol/L Normal 20-31 [facility] Comment on above: Performed By: #### C SAIGE HARRIS REJEC #### [facility] [address] [place] [address] Brokerage Manager: Ashkan Torres MD Creatinine [Mass/Vol] 0.29 mg/dL Low 0.50-0.90 [facility] Comment on above: Performed By: #### C SAIGE HARRIS REJEC #### [facility] [address] [place] [address] Brokerage Manager: Ashkan Torres MD GFR/1.73 sq M.predicted among non-blacks MDRD (S/P/Bld) [Vol rate/Area] mL/min/{1.73_m2} Normal >60 [facility] Comment on above: Result Comment: Effective Dec 18, 2021 These results are not intended for use in patients <18 years of age. eGFR results are calculated without a race factor using the 2020 CKD-EPI equation. Careful clinical correlation is recommended, particularly when comparing to results calculated using previous equations. The CKD-EPI equation is less accurate in patients with extremes of muscle mass, extra-renal metabolism of creatine, excessive creatine ingestion, or following therapy that affects renal tubular secretion. Performed By: #### C SAIGE HARRIS REJEC #### [facility] [address] [place] [address] Brokerage Manager: Ashkan Torres MD Glucose [Mass/Vol] 189 mg/dL High 70-99 [facility] Comment on above: Performed By: #### C SAIGE HARRIS REJEC #### [facility] [address] [place] [address] Brokerage Manager: Ashkan Torres MD Potassium [Moles/Vol] 4.7 mmol/L Normal 3.7-5.3 [facility] Comment on above: Performed By: #### C SAIGE HARRIS REJEC #### [facility] [address] [place] [address] Brokerage Manager: Ashkan Torres MD Sodium [Moles/Vol] 139 mmol/L Normal 135-144 [facility] Comment on above: Performed By: #### C SAIGE HARRIS REJEC #### [address] [address] Brokerage Manager: Ashkan Torres MD Urea nitrogen [Mass/Vol] 17 mg/dL Normal 6-20 [facility] Comment on above: Performed By: #### C SAIGE HARRIS REJEC #### [address] [address] Brokerage Manager: Ashkan Torres MD CBC with Diffon 02-19-2022 Abs. Basophil 0.00 k/uL Normal 0.0-0.2 [facility] Comment on above: Performed By: #### I OCAL #### [address] [address] Brokerage Manager: Ashkan Torres MD Abs.Imm.Granulocyte 0.63 k/uL High 0.00-0.30 [facility] Comment on above: Performed By: #### I OCAL #### [address] [address] Brokerage Manager: Ashkan Torres MD Abs.Neutrophil (Seg) 9.49 k/uL High 1.8-7.7 [facility] Comment on above: Performed By: #### I OCAL #### [address] [address] Brokerage Manager: Ashkan Torres MD Basophils/100 WBC (Bld) 0 % Normal 0-2 [facility] Comment on above: Performed By: #### I OCAL #### [address] [address] Brokerage Manager: Ashkan Torres MD Eosinophils (Bld) [#/Vol] 0.00 10*3/uL Normal 0.0-0.4 [facility] Comment on above: Performed By: #### I OCAL #### [address] [address] Brokerage Manager: Ashkan Torres MD Eosinophils/100 WBC (Bld) 0 % Low 1-4 [facility] Comment on above: Performed By: #### I OCAL #### [address] [address] Brokerage Manager: Ashkan Torres MD Immature granulocytes/100 WBC (Bld) 5 % High 0 [facility] Comment on above: Performed By: #### I OCAL #### [address] [address] Brokerage Manager: Ashkan Torres MD Lymphocytes (Bld) [#/Vol] 1.25 10*3/uL Normal 1.0-4.8 [facility] Comment on above: Performed By: #### I OCAL #### [address] [address] Brokerage Manager: Ashkan Torres MD Lymphocytes/100 WBC (Bld) 10 % Low 24-44 [facility] Comment on above: Performed By: #### I OCAL #### [address] [address] Brokerage Manager: Ashkan Torres MD Monocytes (Bld) [#/Vol] 1.13 10*3/uL High 0.1-0.8 [facility] Comment on above: Performed By: #### I OCAL #### [address] [address] Brokerage Manager: Ashkan Torres MD Monocytes/100 WBC (Bld) 9 % High 1-7 [facility] Comment on above: Performed By: #### I OCAL #### [address] [address] Brokerage Manager: Ashkan Torres MD Morphology Jose Armando (Bld) [Interp] ANISOCYTOSIS PRESENT Normal [facility] Comment on above: Performed By: #### I OCAL #### [address] [address] Brokerage Manager: Ashkan Torres MD Neutrophil (Seg) 76 % High 36-66 [facility] Comment on above: Performed By: #### I OCAL #### [address] [address] Brokerage Manager: Ashkan Torres MD Erythrocyte distribution width (RBC) [Ratio] 15.4 % High 11.8-14.4 [facility] Comment on above: Performed By: #### I OCAL #### [address] [address] Brokerage Manager: Ashkan Torres MD Hematocrit (Bld) [Volume fraction] 35.2 % Low 36.3-47.1 [facility] Comment on above: Performed By: #### I OCAL #### [address] [address] Brokerage Manager: Ashkan Torres MD Hemoglobin (Bld) [Mass/Vol] 10.8 g/dL Low 11.9-15.1 [facility] Comment on above: Performed By: #### I OCAL #### [address] [address] Brokerage Manager: Ashkan Torres MD MCH (RBC) [Entitic mass] 29.9 pg Normal 25.2-33.5 [facility] Comment on above: Performed By: #### I OCAL #### [address] [address] Brokerage Manager: Ashkan Torres MD MCHC (RBC) [Mass/Vol] 30.7 g/dL Normal 28.4-34.8 [facility] Comment on above: Performed By: #### I OCAL #### [address] [address] Brokerage Manager: Ashkan Torres MD MCV (RBC) [Entitic vol] 97.5 fL Normal 82.6-102.9 [facility] Comment on above: Performed By: #### I OCAL #### [address] [address] Brokerage Manager: Ashkan Torres MD NRBC Automated 0.0 per 100 WBC Normal 0.0 [facility] Comment on above: Performed By: #### I OCAL #### [address] [address] Brokerage Manager: Ashkan Torres MD Platelet mean volume (Bld) [Entitic vol] 9.8 fL Normal 8.1-13.5 [facility] Comment on above: Performed By: #### I OCAL #### [address] [address] Brokerage Manager: Ashkan Torres MD Platelets (Bld) [#/Vol] 247 10*3/uL Normal 138-453 [facility] Comment on above: Performed By: #### I OCAL #### [address] [address] Brokerage Manager: Ashkan Torres MD RBC (Bld) [#/Vol] 3.61 10*6/uL Low 3.95-5.11 [facility] Comment on above: Performed By: #### I OCAL #### [address] [address] Brokerage Manager: Ashkan Torres MD WBC (Bld) [#/Vol] 12.5 10*3/uL High 3.5-11.3 [facility] Comment on above: Performed By: #### I OCAL #### [address] [address] Brokerage Manager: Ashkan Torres MD Calcium, Ionicon 02-19-2022 Calcium [Moles/Vol] 1.05 mmol/L Low 1.13-1.33 [facility] Comment on above: Performed By: #### C DPSAIGE, REJEC #### [facility] [address] [place] [address] Brokerage Manager: Ashkan Torres MD Magnesiumon 02-19-2022 Magnesium [Mass/Vol] 2.2 mg/dL Normal 1.6-2.6 [facility] Comment on above: Performed By: #### I OCAL #### [facility] [address] [place] [address] Brokerage Manager: Ashkan Torres MD Phosphorus, Inorg.on 022 Phosphorus, Inorg. 3.7 mg/dL Normal 2.6-4.5 [facility] Comment on above: Performed By: #### I OCAL #### [facility] [address] [place] [address] Brokerage Manager: Ashkan Torres MD Triglycerideson 02-19-2022 Triglyceride [Mass/Vol] 970 mg/dL High <150 [facility] Comment on above: Result Comment: Triglyceride Guidelines: <150 Desirable 150-199 Borderline 200-499 High >499 Very high Based on AHA Guidelines for fasting triglyceride, December 2011. Performed By: #### C SAIGE HARRIS, REJEC #### [facility] [address] [place] [address] Brokerage Manager: Ashkan Torres MD Basic Metabolic Profon 02-18 Anion gap [Moles/Vol] 9 mmol/L Normal - [facility] Comment on above: Performed By: #### B MP, IOCAL, CDP, EDDIE, MG #### [facility] [address] [place] [address] Brokerage Manager: Ashkan Torres MD Calcium [Mass/Vol] 7.8 mg/dL Low 8.6-10.4 [facility] Comment on above: Performed By: #### B MP, IOCAL, CDP, EDDIE, MG #### [facility] [address] [place] [address] Brokerage Manager: Ashkan Torres MD Chloride [Moles/Vol] 99 mmol/L Normal 98-107 [facility] Comment on above: Performed By: #### B MP, IOCAL, CDP, EDDIE, MG #### [facility] [address] [place] [address] Brokerage Manager: Ashkan Torres MD CO2 [Moles/Vol] 28 mmol/L Normal 20-31 [facility] Comment on above: Performed By: #### B MP, IOCAL, CDP, EDDIE, MG #### [facility] [address] [place] [address] Brokerage Manager: Ashkan Torres MD Creatinine [Mass/Vol] 0.32 mg/dL Low 0.50-0.90 [facility] Comment on above: Performed By: #### B MP, IOCAL, CDP, EDDIE, MG #### [facility] [address] [place] [address] Brokerage Manager: Ashkan Torres MD GFR/1.73 sq M.predicted among non-blacks MDRD (S/P/Bld) [Vol rate/Area] mL/min/{1.73_m2} Normal >60 [facility] Comment on above: Result Comment: Effective Dec 18, 2021 These results are not intended for use in patients <18 years of age. eGFR results are calculated without a race factor using the 2020 CKD-EPI equation. Careful clinical correlation is recommended, particularly when comparing to results calculated using previous equations. The CKD-EPI equation is less accurate in patients with extremes of muscle mass, extra-renal metabolism of creatine, excessive creatine ingestion, or following therapy that affects renal tubular secretion. Performed By: #### B MP, IOCAL, CDP, EDDIE, MG #### [facility] [address] [place] [address] Brokerage Manager: Ashkan Torres MD Glucose [Mass/Vol] 162 mg/dL High 70-99 [facility] Comment on above: Performed By: #### B MP, IOCAL, CDP, EDDIE, MG #### [facility] [address] [place] [address] Brokerage Manager: Ashkan Torres MD Potassium [Moles/Vol] 5.0 mmol/L Normal 3.7-5.3 [facility] Comment on above: Performed By: #### B MP, IOCAL, CDP, EDDIE, MG #### [facility] [address] [place] [address] Brokerage Manager: Ashkan Torres MD Sodium [Moles/Vol] 136 mmol/L Normal 135-144 [facility] Comment on above: Performed By: #### B MP, IOCAL, CDP, EDDIE, MG #### [facility] [address] [place] [address] Brokerage Manager: Ashkan Torres MD Urea nitrogen [Mass/Vol] 15 mg/dL Normal 6-20 [facility] Comment on above: Performed By: #### B MP, IOCAL, CDP, EDDIE, MG #### [facility] [address] [place] [address] Brokerage Manager: Ashkan Torres MD CBC with Diffon 02-18-2022 Abs. Basophil 0.00 k/uL Normal 0.0-0.2 [facility] Comment on above: Performed By: #### B MP, IOCAL, CDP, EDDIE, MG #### [facility] [address] [place] [address] Brokerage Manager: Ashkan Torres MD Abs.Imm.Granulocyte 0.63 k/uL High 0.00-0.30 [facility] Comment on above: Performed By: #### B MP, IOCAL, CDP, EDDIE, MG #### [address] [address] Brokerage Manager: Ashkan Torres MD Abs.Neutrophil (Seg) 10.46 k/uL High 1.8-7.7 [facility] Comment on above: Performed By: #### B MP, IOCAL, CDP, EDDIE, MG #### [place] [address] Brokerage Manager: Ashkan Torres MD Basophils/100 WBC (Bld) 0 % Normal 0-2 [facility] Comment on above: Performed By: #### B MP, IOCAL, CDP, EDDIE, MG #### [place] [address] Brokerage Manager: Ashkan Torres MD Eosinophils (Bld) [#/Vol] 0.00 10*3/uL Normal 0.0-0.4 [facility] Comment on above: Performed By: #### B MP, IOCAL, CDP, EDDIE, MG #### [place] [address] Brokerage Manager: Ashkan Torres MD Eosinophils/100 WBC (Bld) 0 % Low 1-4 [facility] Comment on above: Performed By: #### B MP, IOCAL, CDP, EDIDE, MG #### [address] [address] Brokerage Manager: Ashkan Torres MD Immature granulocytes/100 WBC (Bld) 5 % High 0 [facility] Comment on above: Performed By: #### B MP, IOCAL, CDP, EDDIE, MG #### [facility] [address] [place] [address] Brokerage Manager: Ashakn Torres MD Lymphocytes (Bld) [#/Vol] 1.01 10*3/uL Normal 1.0-4.8 [facility] Comment on above: Performed By: #### B MP, IOCAL, CDP, EDDIE, MG #### [address] [address] Brokerage Manager: Ashkan Torres MD Lymphocytes/100 WBC (Bld) 8 % Low 24-44 [facility] Comment on above: Performed By: #### B MP, IOCAL, CDP, EDDIE, MG #### [address] [address] Brokerage Manager: Ashkan Torres MD Monocytes (Bld) [#/Vol] 0.50 10*3/uL Normal 0.1-0.8 [facility] Comment on above: Performed By: #### B MP, IOCAL, CDP, EDDIE, MG #### [address] [address] Brokerage Manager: Ashkan Torres MD Monocytes/100 WBC (Bld) 4 % Normal 1-7 [facility] Comment on above: Performed By: #### B MP, IOCAL, CDP, EDDIE, MG #### [address] [address] Brokerage Manager: Ashkan Torres MD Morphology Jose Armando (Bld) [Interp] ANISOCYTOSIS PRESENT Normal [facility] Comment on above: Performed By: #### B MP, IOCAL, CDP, EDDIE, MG #### [facility] [address] [place] [address] Brokerage Manager: Ashkan Torres MD Neutrophil (Seg) 83 % High 36-66 [facility] Comment on above: Performed By: #### B MP, IOCAL, CDP, EDDIE, MG #### [facility] [address] [place] [address] Brokerage Manager: Ashkan Torres MD Erythrocyte distribution width (RBC) [Ratio] 15.8 % High 11.8-14.4 [facility] Comment on above: Performed By: #### B MP, IOCAL, CDP, EDDIE, MG #### [facility] [address] [place] [address] Brokerage Manager: Ashkan Torres MD Hematocrit (Bld) [Volume fraction] 33.1 % Low 36.3-47.1 [facility] Comment on above: Performed By: #### B MP, IOCAL, CDP, EDDIE, MG #### [facility] [address] [place] [address] Brokerage Manager: Ashkan Torres MD Hemoglobin (Bld) [Mass/Vol] 10.4 g/dL Low 11.9-15.1 [facility] Comment on above: Performed By: #### B MP, IOCAL, CDP, EDDIE, MG #### [facility] [address] [place] [address] Brokerage Manager: Ashkan Torres MD MCH (RBC) [Entitic mass] 31.0 pg Normal 25.2-33.5 [facility] Comment on above: Performed By: #### B MP, IOCAL, CDP, EDDIE, MG #### [address] [address] Brokerage Manager: Ashkan Torres MD MCHC (RBC) [Mass/Vol] 31.4 g/dL Normal 28.4-34.8 [facility] Comment on above: Performed By: #### B MP, IOCAL, CDP, EDDIE, MG #### [facility] [address] [place] [address] Brokerage Manager: Ashkan Torres MD MCV (RBC) [Entitic vol] 98.8 fL Normal 82.6-102.9 [facility] Comment on above: Performed By: #### B MP, IOCAL, CDP, EDDIE, MG #### [facility] [address] [place] [address] Brokerage Manager: Ashkan Torres MD NRBC Automated 0.2 per 100 WBC High 0.0 [facility] Comment on above: Performed By: #### B MP, IOCAL, CDP, EDDIE, MG #### [address] [address] Brokerage Manager: Ashkan Torres MD Platelet mean volume (Bld) [Entitic vol] 9.9 fL Normal 8.1-13.5 [facility] Comment on above: Performed By: #### B MP, IOCAL, CDP, EDDIE, MG #### [facility] [address] [place] [address] Brokerage Manager: Ashkan Torres MD Platelets (Bld) [#/Vol] 221 10*3/uL Normal 138-453 [facility] Comment on above: Performed By: #### B MP, IOCAL, CDP, EDDIE, MG #### [address] [address] Brokerage Manager: Ashkan Torres MD RBC (Bld) [#/Vol] 3.35 10*6/uL Low 3.95-5.11 [facility] Comment on above: Performed By: #### B MP, IOCAL, CDP, EDDIE, MG #### [address] [address] Brokerage Manager: Ashkan Torres MD WBC (Bld) [#/Vol] 12.6 10*3/uL High 3.5-11.3 [facility] Comment on above: Performed By: #### B MP, IOCAL, CDP, EDDIE, MG #### [facility] [address] [place] [address] Brokerage Manager: Ashkan Torres MD Calcium, Ionicon 02-18-2022 Calcium [Moles/Vol] 1.09 mmol/L Low 1.13-1.33 [facility] Comment on above: Performed By: #### B MP, IOCAL, CDP, EDDIE, MG #### [facility] [address] [place] [address] Brokerage Manager: Ashkan Torres MD Magnesiumon 02-18-2022 Magnesium [Mass/Vol] 2.2 mg/dL Normal 1.6-2.6 [facility] Comment on above: Performed By: #### B MP, IOCAL, CDP, EDDIE, MG #### [facility] [address] [place] [address] [phone] Brokerage Manager: Ashkan Torres MD Phosphorus, Inorg.on 022 Phosphorus, Inorg. 3.8 mg/dL Normal 2.6-4.5 [facility] Comment on above: Performed By: #### B MP, IOCAL, CDP, EDDIE, MG #### [facility] [address] [place] [address] Brokerage Manager: Ashkan Torres MD Basic Metabolic Profon 02-17 Anion gap [Moles/Vol] 6 mmol/L Low 9-17 [facility] Comment on above: Performed By: #### B MP, IOCAL, CDP, EDDIE, MG #### [facility] [address] [place] [address] Brokerage Manager: Ashkan Torres MD Calcium [Mass/Vol] 8.0 mg/dL Low 8.6-10.4 [facility] Comment on above: Performed By: #### B MP, IOCAL, CDP, EDDIE, MG #### [facility] [address] [place] [address] Brokerage Manager: Ashkan Torres MD Chloride [Moles/Vol] 111 mmol/L High 98-107 [facility] Comment on above: Performed By: #### B MP, IOCAL, CDP, EDDIE, MG #### [facility] [address] [place] [address] Brokerage Manager: Ashkan Torres MD CO2 [Moles/Vol] 30 mmol/L Normal 20-31 [facility] Comment on above: Performed By: #### B MP, IOCAL, CDP, EDDIE, MG #### [facility] [address] [place] [address] Brokerage Manager: Ashkan Torres MD Creatinine [Mass/Vol] 0.49 mg/dL Low 0.50-0.90 [facility] Comment on above: Performed By: #### B MP, IOCAL, CDP, EDDIE, MG #### [facility] [address] [place] [address] Brokerage Manager: Ashkan Torres MD GFR/1.73 sq M.predicted among non-blacks MDRD (S/P/Bld) [Vol rate/Area] mL/min/{1.73_m2} Normal >60 [facility] Comment on above: Result Comment: Effective Dec 18, 2021 These results are not intended for use in patients <18 years of age. eGFR results are calculated without a race factor using the 2020 CKD-EPI equation. Careful clinical correlation is recommended, particularly when comparing to results calculated using previous equations. The CKD-EPI equation is less accurate in patients with extremes of muscle mass, extra-renal metabolism of creatine, excessive creatine ingestion, or following therapy that affects renal tubular secretion. Performed By: #### B MP, IOCAL, CDP, EDDIE, MG #### [facility] [address] [place] [address] Brokerage Manager: Ashkan Torres MD Glucose [Mass/Vol] 115 mg/dL High 70-99 [facility] Comment on above: Performed By: #### B MP, IOCAL, CDP, EDDIE, MG #### [facility] [address] [place] [address] 707[address] Brokerage Manager: Ashkan Torres MD Potassium [Moles/Vol] 4.9 mmol/L Normal 3.7-5.3 [facility] Comment on above: Performed By: #### B MP, IOCAL, CDP, EDDIE, MG #### [facility] [address] [place] [address] [phone] Brokerage Manager: Ashkan Torres MD Sodium [Moles/Vol] 147 mmol/L High 135-144 [facility] Comment on above: Performed By: #### B MP, IOCAL, CDP, EDDIE, MG #### [address] [address] Brokerage Manager: Ashkan Trores MD Urea nitrogen [Mass/Vol] 17 mg/dL Normal 6-20 [facility] Comment on above: Performed By: #### B MP, IOCAL, CDP, EDDIE, MG #### [address] [address] Brokerage Manager: Ashkan Torres MD CBC with Diffon 02-17-2022 Abs. Basophil <0.03 Normal 0.00-0.20 [facility] Comment on above: Performed By: #### C SAIGE HARRIS, REJEC #### [address] [address] Brokerage Manager: Ashkan Torres MD Abs. Eosinophil <0.03 Normal 0.00-0.44 [facility] Comment on above: Performed By: #### C VIANNEY HARRISCAL, REJEC #### [address] [address] Brokerage Manager: Ashkan Torres MD Abs.Imm.Granulocyte 0.49 k/uL High 0.00-0.30 [facility] Comment on above: Performed By: #### C DPSAIGE, REJEC #### [facility] [address] [place] [address] Brokerage Manager: Ashkan Torres MD Abs.Neutrophil (Seg) 7.78 k/uL Normal 1.50-8.10 [facility] Comment on above: Performed By: #### C VIANNEY HARRISCAL, REJEC #### [address] [address] Brokerage Manager: Ashkan Torres MD Basophils/100 WBC (Bld) 0 % Normal 0-2 [facility] Comment on above: Performed By: #### C STEVEN IOCAL, REJEC #### [facility] [address] [place] [address] Brokerage Manager: Ashkan Torres MD Eosinophils/100 WBC (Bld) 0 % Low 1-4 [facility] Comment on above: Performed By: #### C DP, IOCAL, REJEC #### [facility] [address] [place] [address] Brokerage Manager: Ashkan Torres MD Erythrocyte distribution width (RBC) [Ratio] 16.1 % High 11.8-14.4 [facility] Comment on above: Performed By: #### C STEVEN IOCAL, REJEC #### [facility] [address] [place] [address] Brokerage Manager: Ashkan Torres MD Hematocrit (Bld) [Volume fraction] 29.1 % Low 36.3-47.1 [facility] Comment on above: Performed By: #### C STEVEN IOCAL, REJEC #### [facility] [address] [place] [address] Brokerage Manager: Ashkan Torres MD Hemoglobin (Bld) [Mass/Vol] 10.8 g/dL Low 11.9-15.1 [facility] Comment on above: Performed By: #### C DP, IOCAL, REJEC #### [facility] [address] [place] [address] Brokerage Manager: Ashkan Torres MD Immature granulocytes/100 WBC (Bld) 5 % High 0 [facility] Comment on above: Performed By: #### C DP, IOCAL, REJEC #### [facility] [address] [place] [address] Brokerage Manager: Ashkan Torres MD Lymphocytes (Bld) [#/Vol] 1.60 10*3/uL Normal 1.10-3.70 [facility] Comment on above: Performed By: #### C VIANNEY HARRISCAL, REJEC #### [address] [address] Brokerage Manager: Ashkan Torres MD Lymphocytes/100 WBC (Bld) 15 % Low 24-43 [facility] Comment on above: Performed By: #### C VIANNEY HARRISCAL, REJEC #### [address] [address] Brokerage Manager: Ashkan Torres MD MCH (RBC) [Entitic mass] 36.2 pg High 25.2-33.5 [facility] Comment on above: Performed By: #### C VIANNEY HARRISCAL, REJEC #### [address] [address] Brokerage Manager: Ashkan Torres MD MCHC (RBC) [Mass/Vol] 37.1 g/dL High 28.4-34.8 [facility] Comment on above: Performed By: #### C VIANNEY HARRISCAL, REJEC #### [address] [address] Brokerage Manager: Ashkan Torres MD MCV (RBC) [Entitic vol] 97.7 fL Normal 82.6-102.9 [facility] Comment on above: Performed By: #### C STEVEN IOCAL, REJEC #### [address] [address] Brokerage Manager: Ashkan Torres MD Monocytes (Bld) [#/Vol] 0.78 10*3/uL Normal 0.10-1.20 [facility] Comment on above: Performed By: #### C STEVEN IOCAL, REJEC #### [address] [address] Brokerage Manager: Ashkan Torres MD Monocytes/100 WBC (Bld) 7 % Normal 3-12 [facility] Comment on above: Performed By: #### C STEVEN IOCAL, REJEC #### [address] [address] Brokerage Manager: Ashkan Torres MD Neutrophil (Seg) 73 % High 36-65 [facility] Comment on above: Performed By: #### C DP IOCAL, REJEC #### [address] [address] Brokerage Manager: Ashkan Torres MD NRBC Automated 0.2 per 100 WBC High 0.0 [facility] Comment on above: Performed By: #### C STEVEN IOCAL, REJEC #### [address] [address] Brokerage Manager: Ashkan Torres MD Platelet mean volume (Bld) [Entitic vol] 10.5 fL Normal 8.1-13.5 [facility] Comment on above: Performed By: #### C VIANNEY HARRISCAL, REJEC #### [address] [address] Brokerage Manager: Ashkan Torres MD Platelets (Bld) [#/Vol] 201 10*3/uL Normal 138-453 [facility] Comment on above: Performed By: #### C STEVEN IOCAL, REJEC #### [address] [address] Brokerage Manager: Ashkan Torres MD RBC (Bld) [#/Vol] 2.98 10*6/uL Low 3.95-5.11 [facility] Comment on above: Performed By: #### C DP, IOCAL, REJEC #### [address] [address] Brokerage Manager: Ashkan Torres MD RBC morphology finding Nom (Bld) ANISOCYTOSIS PRESENT Normal [facility] Comment on above: Performed By: #### C DP, IOCAL, REJEC #### [address] [address] Brokerage Manager: Ashkan Torres MD WBC (Bld) [#/Vol] 10.7 10*3/uL Normal 3.5-11.3 [facility] Comment on above: Performed By: #### C DP, IOCAL, REJEC #### [address] [address] Brokerage Manager: Ashkan Torres MD Calcium, Ionicon 02-17-2022 Calcium [Moles/Vol] 1.03 mmol/L Low 1.13-1.33 [facility] Comment on above: Performed By: #### C DP, IOCAL, REJEC #### [address] [address] Brokerage Manager: Ashkan Torres MD Cult,Urineon 02-17-2022 Cult,Urine Specimen Description .URINE Culture CITROBACTER KOSERI (DIVERSUS) >[id number] CFU/ML Report Status FINAL 02/17/2022 SUSCEPTIBILITY Organism CITROBACTER KOSERI (DIVERSUS) Method REKHA Aztreonam <=1 SUSCEPTIBLE Ceftriaxone <=1 SUSCEPTIBLE Ciprofloxacin <=0.25 SUSCEPTIBLE Gentamicin <=1 SUSCEPTIBLE Nitrofurantoin 32 SUSCEPTIBLE Tobramycin <=1 SUSCEPTIBLE Trimethoprim/Sulfa <=20 SUSCEPTIBLE Piperacillin/Tazobactam <=4 SUSCEPTIBLE Susceptible [facility] Comment on above: Performed By: #### I OCAL #### [address] [address] Brokerage Manager: Ashkan Torres MD Magnesiumon 02-17-2022 Magnesium [Mass/Vol] 2.4 mg/dL Normal 1.6-2.6 [facility] Comment on above: Performed By: #### B MP, IOCAL, CDP, EDDIE, MG #### [address] [address] Brokerage Manager: Ashkan Torres MD Phosphorus, Inorg.on Phosphorus, Inorg. 4.2 mg/dL Normal 2.6-4.5 [facility] Comment on above: Performed By: #### B MP, IOCAL, CDP, EDDIE, MG #### [address] [address] Brokerage Manager: Ashkan Torres MD Specimen Rejectionon Reason for rejection Unable to perform testing: Specimen hemolyzed. Normal [facility] Comment on above: Performed By: #### C DP, IOCAL, REJEC #### [facility] [address] [place] [address] Brokerage Manager: Ashkan Torres MD Source of sample .BLOOD Normal [facility] Comment on above: Performed By: #### C DP, IOCAL, REJEC #### [facility] [address] [place] [address] Brokerage Manager: Ashkan Torres MD Test ordered BMP MG EDDIE Normal [facility] Comment on above: Performed By: #### C DP, IOCAL, REJEC #### [facility] [address] [place] [address] Brokerage Manager: Ashkan Torres MD Basic Metabolic Profon 02-16 Potassium [Moles/Vol] 2.8 mmol/L Critically low 3.7-5.3 [facility] Comment on above: Performed By: #### B MP, IOCAL, CDP, EDDIE, MG #### [facility] [address] [place] [address]49 Brokerage Manager: Ashkan Torres MD Anion gap [Moles/Vol] 11 mmol/L Normal 12-02 [facility] Comment on above: Performed By: #### B MP, IOCAL, CDP, EDDIE, MG #### [facility] [address] [place] [address] Brokerage Manager: Ashkan Torres MD Calcium [Mass/Vol] 7.5 mg/dL Low 8.6-10.4 [facility] Comment on above: Performed By: #### B MP, IOCAL, CDP, EDDIE, MG #### [facility] [address] [place] [address] [phone] Brokerage Manager: Ashkan Torres MD Chloride [Moles/Vol] 109 mmol/L High 98-107 [facility] Comment on above: Performed By: #### B MP, IOCAL, CDP, EDDIE, MG #### [facility] [address] [place] [address] [phone] Brokerage Manager: Ashkan Torres MD CO2 [Moles/Vol] 26 mmol/L Normal 20-31 [facility] Comment on above: Performed By: #### B MP, IOCAL, CDP, EDDIE, MG #### [facility] [address] [place] [address] [phone] Brokerage Manager: Ashkan Torres MD Creatinine [Mass/Vol] 0.55 mg/dL Normal 0.50-0.90 [facility] Comment on above: Performed By: #### B MP, IOCAL, CDP, EDDIE, MG #### [facility] [address] [place] [address] [phone] Brokerage Manager: Ashkan Torres MD GFR/1.73 sq M.predicted among non-blacks MDRD (S/P/Bld) [Vol rate/Area] mL/min/{1.73_m2} Normal >60 [facility] Comment on above: Result Comment: Effective Dec 18, 2021 These results are not intended for use in patients <18 years of age. eGFR results are calculated without a race factor using the 2020 CKD-EPI equation. Careful clinical correlation is recommended, particularly when comparing to results calculated using previous equations. The CKD-EPI equation is less accurate in patients with extremes of muscle mass, extra-renal metabolism of creatine, excessive creatine ingestion, or following therapy that affects renal tubular secretion. Performed By: #### B MP, IOCAL, CDP, EDDIE, MG #### [facility] [address] [place] [address] Brokerage Manager: Ashkan Torres MD Glucose [Mass/Vol] 218 mg/dL High 70-99 [facility] Comment on above: Performed By: #### B MP, IOCAL, CDP, EDDIE, MG #### [address] [address] Brokerage Manager: Ashkan Torres MD Sodium [Moles/Vol] 146 mmol/L High 135-144 [facility] Comment on above: Performed By: #### B MP, IOCAL, CDP, EDDIE, MG #### [address] [address] Brokerage Manager: Ashkan Torres MD Urea nitrogen [Mass/Vol] 17 mg/dL Normal 6-20 [facility] Comment on above: Performed By: #### B MP, IOCAL, CDP, EDDIE, MG #### [address] [address] Brokerage Manager: Ashkan Torres MD CBC with Diffon 02-16-2022 Abs. Basophil 0.04 k/uL Normal 0.00-0.20 [facility] Comment on above: Performed By: #### C SAIGE HARRIS REJEC #### [place] [address] Brokerage Manager: Ashkan Torres MD Abs.Imm.Granulocyte 0.33 k/uL High 0.00-0.30 [facility] Comment on above: Performed By: #### C SAIGE HARRIS REJEC #### [facility] [address] [place] [address] Brokerage Manager: Ashkan Torres MD Abs.Neutrophil (Seg) 9.60 k/uL High 1.50-8.10 [facility] Comment on above: Performed By: #### C SAIGE HARRIS REJEC #### [facility] [place] [address] Brokerage Manager: Ashkan Torres MD Basophils/100 WBC (Bld) 0 % Normal 0-2 [facility] Comment on above: Performed By: #### C DP, IOCAL, REJEC #### [facility] [address] [place] [address] Brokerage Manager: Ashkan Torres MD Eosinophils (Bld) [#/Vol] 0.05 10*3/uL Normal 0.00-0.44 [facility] Comment on above: Performed By: #### C DP, IOCAL, REJEC #### [facility] [address] [place] [address] Brokerage Manager: Ashkan Torres MD Eosinophils/100 WBC (Bld) 0 % Low 1-4 [facility] Comment on above: Performed By: #### C DP, IOCAL, REJEC #### [facility] [address] [place] [address] Brokerage Manager: Ashkan Torres MD Erythrocyte distribution width (RBC) [Ratio] 15.7 % High 11.8-14.4 [facility] Comment on above: Performed By: #### C DP, IOCAL, REJEC #### [facility] [address] [place] [address] Brokerage Manager: Ashkan Torres MD Hematocrit (Bld) [Volume fraction] 33.3 % Low 36.3-47.1 [facility] Comment on above: Performed By: #### C DP, IOCAL, REJEC #### [facility] [address] [place] [address] Brokerage Manager: Ashkan Torres MD Hemoglobin (Bld) [Mass/Vol] 10.1 g/dL Low 11.9-15.1 [facility] Comment on above: Performed By: #### C DP, IOCAL, REJEC #### [facility] [place] [address] Brokerage Manager: Ashkan Torres MD Immature granulocytes/100 WBC (Bld) 3 % High 0 [facility] Comment on above: Performed By: #### C DP, IOCAL, REJEC #### [address] [address] Brokerage Manager: Ashkan Torres MD Lymphocytes (Bld) [#/Vol] 0.97 10*3/uL Low 1.10-3.70 [facility] Comment on above: Performed By: #### C STEVEN IOCAL, REJEC #### [facility] [address] [place] [address] Brokerage Manager: Ashkan Torres MD Lymphocytes/100 WBC (Bld) 8 % Low 24-43 [facility] Comment on above: Performed By: #### C STEVEN IOCAL, REJEC #### [facility] [address] [place] [address] Brokerage Manager: Ashkan Torres MD MCH (RBC) [Entitic mass] 29.9 pg Normal 25.2-33.5 [facility] Comment on above: Performed By: #### C STEVEN IOCAL, REJEC #### [facility] [address] [place] [address] Brokerage Manager: Ashkan Torres MD MCHC (RBC) [Mass/Vol] 30.3 g/dL Normal 28.4-34.8 [facility] Comment on above: Performed By: #### C STEVEN IOCAL, REJEC #### [facility] [address] [place] [address] Brokerage Manager: Ashkan Torres MD MCV (RBC) [Entitic vol] 98.5 fL Normal 82.6-102.9 [facility] Comment on above: Performed By: #### C DP, IOCAL, REJEC #### [address] [address] Brokerage Manager: Ashkan Torres MD Monocytes (Bld) [#/Vol] 0.92 10*3/uL Normal 0.10-1.20 [facility] Comment on above: Performed By: #### C DP, IOCAL, REJEC #### [address] [address] Brokerage Manager: Ashkan Torres MD Monocytes/100 WBC (Bld) 8 % Normal 3-12 [facility] Comment on above: Performed By: #### C DP, IOCAL, REJEC #### [address] [address] Brokerage Manager: Ashkan Torres MD Neutrophil (Seg) 81 % High 36-65 [facility] Comment on above: Performed By: #### C DP, IOCAL, REJEC #### [address] [address] Brokerage Manager: Ashkan Torres MD NRBC Automated 0.0 per 100 WBC Normal 0.0 [facility] Comment on above: Performed By: #### C DP, IOCAL, REJEC #### [address] [address] Brokerage Manager: Ashkan Torres MD Platelet mean volume (Bld) [Entitic vol] 9.6 fL Normal 8.1-13.5 [facility] Comment on above: Performed By: #### C DP, IOCAL, REJEC #### [address] [address] Brokerage Manager: sAhkan Torres MD Platelets (Bld) [#/Vol] 204 10*3/uL Normal 138-453 [facility] Comment on above: Performed By: #### C DP, IOCAL, REJEC #### [address] [address] Brokerage Manager: Ashkan Torres MD RBC (Bld) [#/Vol] 3.38 10*6/uL Low 3.95-5.11 [facility] Comment on above: Performed By: #### C DP, IOCAL, REJEC #### [address] [address] Brokerage Manager: Ashkan Torres MD RBC morphology finding Nom (Bld) ANISOCYTOSIS PRESENT Normal [facility] Comment on above: Performed By: #### C DP, IOCAL, REJEC #### [place] [address] Brokerage Manager: Ashkan Torres MD WBC (Bld) [#/Vol] 11.9 10*3/uL High 3.5-11.3 [facility] Comment on above: Performed By: #### C DP, IOCAL, REJEC #### [place] [address] Brokerage Manager: Ashkan Torres MD Abs. Basophil 0.00 k/uL Normal 0.00-0.20 [facility] Comment on above: Performed By: #### B MP, IOCAL, CDP, EDDIE, MG #### [place] [address] Brokerage Manager: Ashkan Torres MD Abs.Imm.Granulocyte 0.19 k/uL Normal 0.00-0.30 [facility] Comment on above: Performed By: #### B MP, IOCAL, CDP, EDDIE, MG #### [place] [address] Brokerage Manager: Ashkan Torres MD Abs.Neutrophil (Seg) 8.16 k/uL High 1.50-8.10 [facility] Comment on above: Performed By: #### B MP, IOCAL, CDP, EDDIE, MG #### [address] [place] [address] Brokerage Manager: Ashkan Torres MD Basophils/100 WBC (Bld) 0 % Normal 0-2 [facility] Comment on above: Performed By: #### B MP, IOCAL, CDP, EDDIE, MG #### [place] [address] Brokerage Manager: Ashkan Torres MD Eosinophils (Bld) [#/Vol] 0.00 10*3/uL Normal 0.00-0.44 [facility] Comment on above: Performed By: #### B MP, IOCAL, CDP, EDDIE, MG #### [address] [address] Brokerage Manager: Ashkan Torres MD Eosinophils/100 WBC (Bld) 0 % Low 1-4 [facility] Comment on above: Performed By: #### B MP, IOCAL, CDP, EDDIE, MG #### [place] [address] Brokerage Manager: Ashkan Torres MD Immature granulocytes/100 WBC (Bld) 2 % High 0 [facility] Comment on above: Performed By: #### B MP, IOCAL, CDP, EDDIE, MG #### [place] [address] Brokerage Manager: Ashkan Torres MD Lymphocytes (Bld) [#/Vol] 0.67 10*3/uL Low 1.10-3.70 [facility] Comment on above: Performed By: #### B MP, IOCAL, CDP, EDDIE, MG #### [facility] [address] [place] [address] Brokerage Manager: Ashkan Torres MD Lymphocytes/100 WBC (Bld) 7 % Low 24-43 [facility] Comment on above: Performed By: #### B MP, IOCAL, CDP, EDDIE, MG #### [address] [address] Brokerage Manager: Ashkan Torres MD Monocytes (Bld) [#/Vol] 0.58 10*3/uL Normal 0.10-1.20 [facility] Comment on above: Performed By: #### B MP, IOCAL, CDP, EDDIE, MG #### [address] [address] Brokerage Manager: Ashkan Torres MD Monocytes/100 WBC (Bld) 6 % Normal 3-12 [facility] Comment on above: Performed By: #### B MP, IOCAL, CDP, EDDIE, MG #### [place] [address] Brokerage Manager: Ashkan Torres MD Morphology Jose Armando (Bld) [Interp] ANISOCYTOSIS PRESENT Normal [facility] Comment on above: Performed By: #### B MP, IOCAL, CDP, EDDIE, MG #### [facility] [address] [place] [address] Brokerage Manager: Ashkan Torres MD Neutrophil (Seg) 85 % High 36-65 [facility] Comment on above: Performed By: #### B MP, IOCAL, CDP, EDDIE, MG #### [address] [address] Brokerage Manager: Ashkan Torres MD Erythrocyte distribution width (RBC) [Ratio] 15.7 % High 11.8-14.4 [facility] Comment on above: Performed By: #### B MP, IOCAL, CDP, EDDIE, MG #### [facility] [address] [place] [address] Brokerage Manager: Ashkan Torres MD Hematocrit (Bld) [Volume fraction] 32.0 % Low 36.3-47.1 [facility] Comment on above: Performed By: #### B MP, IOCAL, CDP, EDDIE, MG #### [address] [address] Brokerage Manager: Ashkan Torres MD Hemoglobin (Bld) [Mass/Vol] 9.8 g/dL Low 11.9-15.1 [facility] Comment on above: Performed By: #### B MP, IOCAL, CDP, EDDIE, MG #### [address] [address] Brokerage Manager: Ashkan Torres MD MCH (RBC) [Entitic mass] 29.8 pg Normal 25.2-33.5 [facility] Comment on above: Performed By: #### B MP, IOCAL, CDP, EDDIE, MG #### [address] [address] Brokerage Manager: Ashkan Torres MD MCHC (RBC) [Mass/Vol] 30.6 g/dL Normal 28.4-34.8 [facility] Comment on above: Performed By: #### B MP, IOCAL, CDP, EDDIE, MG #### [address] [address] Brokerage Manager: Ashkan Torres MD MCV (RBC) [Entitic vol] 97.3 fL Normal 82.6-102.9 [facility] Comment on above: Performed By: #### B MP, IOCAL, CDP, EDDIE, MG #### [address] [address] Brokerage Manager: Ashkan Torres MD NRBC Automated 0.0 per 100 WBC Normal 0.0 [facility] Comment on above: Performed By: #### B MP, IOCAL, CDP, EDDIE, MG #### [address] [address] Brokerage Manager: Ashkan Torres MD Platelet mean volume (Bld) [Entitic vol] 9.5 fL Normal 8.1-13.5 [facility] Comment on above: Performed By: #### B MP, IOCAL, CDP, EDDIE, MG #### [facility] [address] [place] [address] Brokerage Manager: Ashkan Torres MD Platelets (Bld) [#/Vol] 212 10*3/uL Normal 138-453 [facility] Comment on above: Performed By: #### B MP, IOCAL, CDP, EDDIE, MG #### [facility] [address] [place] [address] Brokerage Manager: Ashkan Torres MD RBC (Bld) [#/Vol] 3.29 10*6/uL Low 3.95-5.11 [facility] Comment on above: Performed By: #### B MP, IOCAL, CDP, EDDIE, MG #### [facility] [address] [place] [address] Brokerage Manager: Ashkan Torres MD WBC (Bld) [#/Vol] 9.6 10*3/uL Normal 3.5-11.3 [facility] Comment on above: Performed By: #### B MP, IOCAL, CDP, EDDIE, MG #### [facility] [address] [place] [address] Brokerage Manager: Ashkan Torres MD Calcium, Ionicon 02-16-2022 Calcium [Moles/Vol] 1.05 mmol/L Low 1.13-1.33 [facility] Comment on above: Performed By: #### I OCAL #### [facility] [address] [place] [address] Brokerage Manager: Ashkan Torres MD Comp Metabolic Pr/rfx MGon 1 04-19-2021 Anion gap [Moles/Vol] 11 mmol/L Normal 9-17 [facility] Comment on above: Performed By: #### C DP, IOCAL, REJEC #### [facility] [address] [place] [address] Brokerage Manager: sAhkan Torres MD Chloride [Moles/Vol] 107 mmol/L Normal 98-107 [facility] Comment on above: Performed By: #### C STEVEN IOCAL, REJEC #### [facility] [address] [place] [address] Brokerage Manager: Ashkan Torres MD CO2 [Moles/Vol] 26 mmol/L Normal 20-31 [facility] Comment on above: Performed By: #### C STEVEN IOCAL, REJEC #### [facility] [address] [place] [address] Brokerage Manager: Ashkan Torres MD Potassium [Moles/Vol] 5.2 mmol/L Normal 3.7-5.3 [facility] Comment on above: Result Comment: TEST CONFIRMED Performed By: #### C VIANNEY HARRISCAL, REJEC #### [facility] [address] [place] [address] Brokerage Manager: Ashkan Torres MD Sodium [Moles/Vol] 144 mmol/L Normal 135-144 [facility] Comment on above: Performed By: #### C STEVEN IOCAL, REJEC #### [facility] [address] [place] [address] Brokerage Manager: Ashkan Torres MD Albumin [Mass/Vol] 3.0 g/dL Low 3.5-5.2 [facility] Comment on above: Performed By: #### C STEVEN IOCAL, REJEC #### [facility] [address] [place] [address] Brokerage Manager: Ashkan Torres MD Albumin/Glob Ratio 1.4 Normal 1.0-2.5 [facility] Comment on above: Performed By: #### C STEVEN IOCAL, REJEC #### [facility] [address] [place] [address] Brokerage Manager: Ashkan Torres MD Alkaline Phos 46 U/L Normal 35-104 [facility] Comment on above: Performed By: #### C DP IOCAL, REJEC #### [facility] [address] [place] [address] Brokerage Manager: Ashkan Torres MD ALT [Catalytic activity/Vol] 127 U/L High 5-33 [facility] Comment on above: Performed By: #### C STEVEN IOCAL, REJEC #### [facility] [address] [place] [address] Brokerage Manager: Ashkan Torres MD AST [Catalytic activity/Vol] 144 U/L High <32 [facility] Comment on above: Performed By: #### C STEVEN IOCAL, REJEC #### [facility] [address] [place] [address] Brokerage Manager: Ashkan Torres MD Bilirubin [Mass/Vol] 0.3 mg/dL Normal 0.3-1.2 [facility] Comment on above: Performed By: #### C VIANNEY HARRISCAL, REJEC #### [facility] [address] [place] [address] Brokerage Manager: Ashkan Torres MD Calcium [Mass/Vol] 7.6 mg/dL Low 8.6-10.4 [facility] Comment on above: Performed By: #### C VIANNEY HARRISCAL, REJEC #### [facility] [address] [place] [address] Brokerage Manager: Ashkan Torres MD Creatinine [Mass/Vol] 0.55 mg/dL Normal 0.50-0.90 [facility] Comment on above: Performed By: #### C STEVEN IOCAL, REJEC #### [facility] [address] [place] [address] Brokerage Manager: Ashkan Torres MD GFR/1.73 sq M.predicted among non-blacks MDRD (S/P/Bld) [Vol rate/Area] mL/min/{1.73_m2} Normal >60 [facility] Comment on above: Result Comment: Effective Dec 18, 2021 These results are not intended for use in patients <18 years of age. eGFR results are calculated without a race factor using the 2020 CKD-EPI equation. Careful clinical correlation is recommended, particularly when comparing to results calculated using previous equations. The CKD-EPI equation is less accurate in patients with extremes of muscle mass, extra-renal metabolism of creatine, excessive creatine ingestion, or following therapy that affects renal tubular secretion. Performed By: #### C STEVEN IOCAL, REJEC #### [facility] [address] [place] [address] Brokerage Manager: Ashkan Torres MD Glucose [Mass/Vol] 258 mg/dL High 70-99 [facility] Comment on above: Performed By: #### C VIANNEY HARRISCAL, REJEC #### [facility] [address] [place] [address] Brokerage Manager: Ashkan Torres MD Protein [Mass/Vol] 5.2 g/dL Low 6.4-8.3 [facility] Comment on above: Performed By: #### C VIANNEY HARRISCAL, REJEC #### [facility] [address] [place] [address] Brokerage Manager: Ashkan Torres MD Urea nitrogen [Mass/Vol] 15 mg/dL Normal 6-20 [facility] Comment on above: Performed By: #### C STEVEN IOCAL, REJEC #### [facility] [address] [place] [address] Brokerage Manager: Ashkan Torres MD MRSA, DNA, Nasalon 2 MRSA, DNA, Nasal Negative Normal NEG [facility] Comment on above: Result Comment: NEGA TIVE: MRSA DNA not detected by nucleic acid amplification. Results should be used as an adjunct to nosocomial control efforts to identify patients needing enhanced precautions. The test is not intended to identify patients with staphylococcal infections. Results should not be used to guide or monitor treatment for MRSA infections. Performed By: #### B MP, IOCAL, CDP, EDDIE, MG #### [facility] [address] [place] [address] Brokerage Manager: Ashkan Torres MD Magnesiumon 02-16-2022 Magnesium [Mass/Vol] 2.5 mg/dL Normal 1.6-2.6 [facility] Comment on above: Performed By: #### B MP, IOCAL, CDP, EDDIE, MG #### [address] [address] Brokerage Manager: Ashkan Torres MD Phosphorus, Inorg.on 022 Phosphorus, Inorg. 2.5 mg/dL Low 2.6-4.5 [facility] Comment on above: Performed By: #### B MP, IOCAL, CDP, EDDIE, MG #### [address] [address] Brokerage Manager: Ashkan Torres MD TSH w/reflex to FT4on 2021 Thyroid Stim. Horm. 0.43 uIU/mL Normal 0.30-5.00 [facility] Comment on above: Performed By: #### C DP, IOCAL, REJEC #### [address] [address] Brokerage Manager: Ashkan Torres MD Urinalysis,Microon 2 Bacteria MANY Abnormal NONE [facility] Comment on above: Performed By: #### I OCAL #### [address] [address] Brokerage Manager: Ashkan Torres MD Casts 10 TO 20 Normal 0-2 [facility] Comment on above: Result Comment: HYAL INE Performed By: #### I OCAL #### [address] [address] Brokerage Manager: Ashkan Torres MD Epithelial cells LM Ql (Urine sed) None Normal 0-5 [facility] Comment on above: Performed By: #### I OCAL #### [address] [address] Brokerage Manager: Ashkan Torres MD Urine RBC's TOO NUMEROUS TO COUNT Normal 0-2 [facility] Comment on above: Performed By: #### I OCAL #### [facility] [address] [place] [address] [phone] Brokerage Manager: Ashkan Torres MD Urine WBC's TOO NUMEROUS TO COUNT Normal 0-5 [facility] Comment on above: Performed By: #### I OCAL #### [address] [phone] Brokerage Manager: Ashkan Torres MD XR ABDOMEN FOR NG/OG/NE TUBE PLACEMENTon 02-16-2022 XR ABDOMEN FOR NG/OG/NE TUBE PLACEMENT EXAMINATION: ONE SUPINE XRAY VIEW(S) OF THE ABDOMEN 02/16/2022 12:04 am COMPARISON: None. HISTORY: ORDERING SYSTEM PROVIDED HISTORY: Confirmation of course of NG/OG/NE tube and location of tip of tube TECHNOLOGIST PROVIDED HISTORY: Confirmation of course of NG/OG/NE tube and location of tip of tube Portable?->Yes Reason for Exam: supine,og placement FINDINGS: An OG tube is in place. The distal tip is at the expected location of the distal antrum. The side hole is well within the body of the stomach. Visualized abdomen and lower thorax appear unremarkable. IMPRESSION: OG tube in satisfactory position. Interpreted by: Kike Pastor MD Signed by: Kike Pastor MD 02/16/22 Final result Normal [facility] XR CHEST PORTABLEon 02-17-20 XR CHEST PORTABLE EXAMINATION: ONE XRAY VIEW OF THE CHEST 02/16/2022 12:04 am COMPARISON: None. HISTORY: ORDERING SYSTEM PROVIDED HISTORY: transfer from [place], intubated, decreased LS at bases TECHNOLOGIST PROVIDED HISTORY: transfer from [place], intubated, decreased LS at bases Reason for Exam: upr,et placement FINDINGS: Endotracheal tube terminates above the kamryn. Enteric tube extends below the diaphragm beyond the field of view. Cardiomediastinal silhouette is normal in size. There is no large pleural effusion or pneumothorax. There is no pulmonary consolidation. There is no acute osseous abnormality. IMPRESSION: 1. No acute cardiopulmonary abnormality. 2. Endotracheal tube terminates above the kamryn. Interpreted by: Adele Rubio MD Signed by: Adele Rubio MD 02/16/22 Final result Normal [facility] MODE VENTILATOR Normal [facility] Comment on above: Performed By: #### B MP #### [facility] [address] [place] [address] Dr. Aileen Bradford ALLENS TEST Positive Normal [facility] Comment on above: Performed By: #### B MP #### [facility] [address] [place] [address] Dr. Aileen Bradford Base excess Calc (Bld) [Moles/Vol] 4.4 mmol/L Critically high -2.0-2.0 [facility] Comment on above: Performed By: #### B MP #### [facility] [address] [place] [address] Dr. Aileen Bradford BIPAP PRESSURE Normal [facility] Comment on above: Performed By: #### B MP #### [facility] [address] [place] [address] Dr. Aileen Bradford CPAP Normal [facility] Comment on above: Performed By: #### B MP #### [facility] [address] [address] [address] Aileen Bradford FIO2 35.00 % Normal [facility] Comment on above: Performed By: #### B MP #### [facility] [address] [address] [address] Aileen Bradford HCO3 (Bld) [Moles/Vol] 28.9 mmol/L Critically high 22.0-26.0 [facility] Comment on above: Performed By: #### B MP #### [facility] [address] [place] [address] Dr. Aileen Bradford LPM Normal [facility] Comment on above: Performed By: #### B MP #### [facility] [address] [place] [address] Dr. Aileen Bradford MINUTE VOLUME Normal [facility] Comment on above: Performed By: #### B MP #### [facility] [address] [place] [address] Dr. Aileen Bradford Oxygen (Bld) [Partial pressure] 72.3 mm[Hg] Critically low 80.0-100.0 [facility] Comment on above: Performed By: #### B MP #### [facility] [address] [place] [address] Dr. Aileen Bradford Oxygen saturation in Blood 95.5 % Normal 95.0-100.0 [facility] Comment on above: Performed By: #### B MP #### [facility] [address] [place] [address] Dr. Aileen Bradford PCO2 44.8 mmHg Normal 35.0-45.0 [facility] Comment on above: Performed By: #### B MP #### [facility] [address] [place] [address] Dr. Aileen Bradford PEEP 5 [facility] Comment on above: Performed By: #### B MP #### [facility] [address] [place] [address] Dr. Aileen Bradford pH (Bld) 7.419 [pH] Normal 7.350-7.450 [facility] Comment on above: Performed By: #### B MP #### [facility] [address] [place] [address] Dr. Aileen Bradford PIP [facility] Comment on above: Performed By: #### B MP #### [facility] [address] [place] [address] Dr. Aileen Bradford PS [facility] Comment on above: Performed By: #### B MP #### [facility] [address] [place] [address] Dr. Aileen Bradford PUNCTURE SITE LR [facility] Comment on above: Performed By: #### B MP #### [facility] [address] [place] [address] Dr. Aileen Bradford RATE 16 bpm Normal [facility] Comment on above: Performed By: #### B MP #### [facility] [address] [address] [address] Aileen Bradford VENT MODE AC Normal [facility] Comment on above: Performed By: #### B MP #### [facility] [address] [address] [address] Aileen Bradford [place] 550 ML Normal [facility] Comment on above: Performed By: #### B MP #### [facility] [address] [address] [address] Aileen Bradford CBC AUTO DIFFon 02-15-2022 BASO # 0.0 103/ul Normal 0.0-0.1 [facility] Comment on above: Performed By: #### T 4, CMP, TSH #### [facility] [address] [place] [address] Dr. Aileen Bradford Basophils/100 WBC (Bld) 0.3 % Normal 0.2-2.0 [facility] Comment on above: Performed By: #### T 4, CMP, TSH #### [facility] [address] [place] [address] Dr. Aileen Bradford EO # 0.0 103/ul Normal 0.0-0.7 [facility] Comment on above: Performed By: #### T 4, CMP, TSH #### [facility] [address] [place] [address] Dr. Aileen Bradford Eosinophils/100 WBC (Bld) 0.0 % Critically low 0.9-7.0 [facility] Comment on above: Performed By: #### T 4, CMP, TSH #### [facility] [address] [place] [address] Dr. Aileen Bradford Erythrocyte distribution width (RBC) [Ratio] 15.3 % Critically high 11.0-15.0 [facility] Comment on above: Performed By: #### T 4, CMP, TSH #### [facility] [address] [place] [address] Dr. Aileen Bradford Hematocrit (Bld) [Volume fraction] 32.1 % Critically low 36.0-48.0 [facility] Comment on above: Performed By: #### T 4, CMP, TSH #### [facility] [address] [place] [address] Dr. Aileen Bradford Hemoglobin (Bld) [Mass/Vol] 10.2 g/dL Critically low 12.0-16.0 [facility] Comment on above: Performed By: #### T 4, CMP, TSH #### [facility] [address] [place] [address] Dr. Aileen Bradford IG # 0.10 10e3/ul Critically high 0.00-0.03 [facility] Comment on above: Performed By: #### T 4, CMP, TSH #### [facility] [address] [place] [address] Dr. Aileen Bradford IG % 1.4 % Critically high 0.0-0.5 [facility] Comment on above: Performed By: #### T 4, CMP, TSH #### [facility] [address] [place] [address] Dr. Aileen Bradford LYMPH # 0.6 103/ul Critically low 1.2-3.8 [facility] Comment on above: Performed By: #### T 4, CMP, TSH #### [facility] [address] [place] [address] Dr. Aileen Bradford Lymphocytes/100 WBC (Bld) 8.4 % Critically low 20.5-60.0 [facility] Comment on above: Performed By: #### T 4, CMP, TSH #### [facility] [address] [place] [address] Dr. Aileen Bradford MANUAL DIFF REQ NO Normal [facility] Comment on above: Performed By: #### T 4, CMP, TSH #### [facility] [address] [place] [address] Dr. Aileen Bradford MCH (RBC) [Entitic mass] 29.6 pg Normal 26.7-34.0 [facility] Comment on above: Performed By: #### T 4, CMP, TSH #### [facility] [address] [place] [address] Dr. Aileen Bradford MCHC (RBC) [Mass/Vol] 31.8 g/dL Normal 29.9-35.2 [facility] Comment on above: Performed By: #### T 4, CMP, TSH #### [facility] [address] [place] [address] Dr. Aileen Bradford MCV (RBC) [Entitic vol] 93.0 fL Normal 81.0-99.0 [facility] Comment on above: Performed By: #### T 4, CMP, TSH #### [facility] [address] [place] [address] Dr. Aileen Bradford MONO # 0.3 103/ul Normal 0.3-0.8 [facility] Comment on above: Performed By: #### T 4, CMP, TSH #### [facility] [address] [place] [address] Dr. Aileen Bradford Monocytes/100 WBC (Bld) 4.2 % Normal 1.7-12.0 [facility] Comment on above: Performed By: #### T 4, CMP, TSH #### [facility] [address] [place] [address] Dr. Aileen Bradford NEUT # 6.3 103/ul Normal 1.4-6.5 [facility] Comment on above: Performed By: #### T 4, CMP, TSH #### [facility] [address] [place] [address] Dr. Aileen Bradford Neutrophils/100 WBC (Bld) 85.7 % Critically high 43.0-75.0 [facility] Comment on above: Performed By: #### T 4, CMP, TSH #### [facility] [address] [place] [address] Dr. Aileen Bradford Platelet mean volume (Bld) [Entitic vol] 9.8 fL Normal 9.5-13.5 [facility] Comment on above: Performed By: #### T 4, CMP, TSH #### [facility] [address] [place] [address] Dr. Aileen Bradford PLT 226 103/ul Normal 150-450 [facility] Comment on above: Performed By: #### T 4, CMP, TSH #### [facility] [address] [address] [address] Aileen Bradford RBC 3.45 106/ul Critically low 4.20-5.40 [facility] Comment on above: Performed By: #### T 4, CMP, TSH #### [facility] [address] [address] [address] Aileen Bradford WBC 7.4 103/ul Normal 4.0-11.0 [facility] Comment on above: Performed By: #### T 4, CMP, TSH #### [facility] [address] [address] [address] Aileen Bradford MRSA, DNA, Nasalon 2 Specimen Description .NASAL SWAB Normal [facility] Comment on above: Performed By: #### B MP, IOCAL, CDP, EDDIE, MG #### [facility] [address] [place] [address] Brokerage Manager: Ashkan Torres MD PROF CHEM 8 (BAS METB)on Anion gap [Moles/Vol] 10.3 mmol/L Normal [facility] Comment on above: Performed By: #### T 4, CMP, TSH #### [facility] [address] [address] [address] Aileen Bradford Calcium [Mass/Vol] 7.7 mg/dL Critically low 8.5-10.1 [facility] Comment on above: Performed By: #### T 4, CMP, TSH #### [facility] [address] [address] [address] Aileen Bradford Chloride [Moles/Vol] 110 mmol/L Critically high 98-107 [facility] Comment on above: Performed By: #### T 4, CMP, TSH #### [facility] [address] [address] [address] Aileen Bradford CO2 [Moles/Vol] 29.3 mmol/L Normal 21.0-32.0 [facility] Comment on above: Performed By: #### T 4, CMP, TSH #### [facility] [address] [address] [address] Aileen Bradford Creatinine [Mass/Vol] 0.67 mg/dL Normal 0.55-1.02 [facility] Comment on above: Performed By: #### T 4, CMP, TSH #### [facility] [address] [address] [address] Aileen Bradford EGFR-AF BURMESE >60 Normal >=60 [facility] Comment on above: Performed By: #### T 4, CMP, TSH #### [facility] [address] [address] [address] Aileen Bradford EGFR-NON AF BURMESE >60 Normal >=60 [facility] Comment on above: Performed By: #### T 4, CMP, TSH #### [facility] [address] [address] [address] Aileen Bradford Glucose [Mass/Vol] 166 mg/dL Critically high 74-106 [facility] Comment on above: Performed By: #### T 4, CMP, TSH #### [facility] [address] [address] [address] Aileen Bradford Potassium [Moles/Vol] 3.6 mmol/L Normal 3.5-5.1 [facility] Comment on above: Performed By: #### T 4, CMP, TSH #### [facility] [address] [address] [address] Aileen Bradford Sodium [Moles/Vol] 146 mmol/L Critically high 136-145 [facility] Comment on above: Performed By: #### T 4, CMP, TSH #### [facility] [address] [address] [address] Aileen Bradford Urea nitrogen [Mass/Vol] 16.0 mg/dL Normal 7.0-18.0 [facility] Comment on above: Performed By: #### T 4, CMP, TSH #### [facility] [address] [address] [address] Aileen Bradford Urea nitrogen/Creatinine [Mass ratio] 23.9 mg/mg Normal [facility] Comment on above: Performed By: #### T 4, CMP, TSH #### [facility] [address] [place], [place] [address] Dr. Aileen Bradford UA w/Reflex Cultureon 2021 Bilirubin, SemiQt,Ur Negative Normal NEG [facility] Comment on above: Performed By: #### I OCAL #### [address] [address] Brokerage Manager: Ashkan Torres MD Blood, Urine LARGE Abnormal NEG [facility] Comment on above: Performed By: #### I OCAL #### [address] [address] Brokerage Manager: Ashkan Torres MD Clarity (U) Cloudy Abnormal CLEAR [facility] Comment on above: Performed By: #### I OCAL #### [address] [address] Brokerage Manager: Ashkan Torres MD Color (U) Red Abnormal YEL [facility] Comment on above: Result Comment: INTE RPRET WITH CAUTION DUE TO INTENSE COLOR OF URINE. Performed By: #### I OCAL #### [address] [address] Brokerage Manager: Ashkan Torres MD Glucose Ql (U) Negative Normal NEG [facility] Comment on above: Performed By: #### I OCAL #### [address] [address] Brokerage Manager: Ashkan Torres MD Ketones Ql (U) Negative Normal NEG [facility] Comment on above: Performed By: #### I OCAL #### [address] [address] Brokerage Manager: Ashkan Torres MD Leukocyte esterase Test strip Ql (U) MODERATE Abnormal NEG [facility] Comment on above: Performed By: #### I OCAL #### [address] [place] [address] Brokerage Manager: Ashkan Torres MD Nitrite,Ur Negative Normal NEG [facility] Comment on above: Performed By: #### I OCAL #### [address] [address] Brokerage Manager: Ashkan Torres MD PH,Ur 5.5 Normal 5.0-8.0 [facility] Comment on above: Performed By: #### I OCAL #### [address] [address] Brokerage Manager: Ashkan Torres MD Protein Ql (U) 2+ Abnormal NEG [facility] Comment on above: Performed By: #### I OCAL #### [address] [address] Brokerage Manager: Ashkan Torres MD Spec. [place],Ur 1.022 Normal 1.005-1.030 [facility] Comment on above: Performed By: #### I OCAL #### [address] [address] Brokerage Manager: Ashkan Torres MD Urobilinogen,Ur Normal Normal NORM [facility] Comment on above: Performed By: #### I OCAL #### [address] [address] Brokerage Manager: Ashkan Torres MD XR CHEST 1 Von 02-15-2022 XR CHEST 1 V EXAM: XR CHEST 1 V HISTORY: Acute severe exacerbation of asthma COMPARISON: 02/14/2022 TECHNIQUE: Portable FINDINGS: LUNGS: Endotracheal tube tip projects in the distal trachea, 2.3 cm above the kamryn. The lungs are clear VASCULATURE: No increased pulmonary vasculature. PLEURA: No pneumothorax, effusion, or pleural thickening. CARDIAC: No cardiomegaly or cardiac silhouette abnormality. MEDIASTINUM: No visible mass or adenopathy. BONES: No fracture or visible bone lesion. OTHER: Enteric tube tip extends off the field of view at least to the level of the stomach IMPRESSION: Stable lines and tubes Clear lungs Electronically authenticated by: ANDRZEJ WARD Date: 2022-02-15 07:15 Normal [facility] BLOOD GASES BTYon 02-14-2022 02 MODE VENTILATOR Normal [facility] Comment on above: Performed By: #### A BG #### [facility] [address] [place] [address] Dr. Aileen Bradford ALLENS TEST Positive [facility] Comment on above: Performed By: #### A BG #### [facility] [address] [place] [address] Dr. Aileen Bradford Base excess Calc (Bld) [Moles/Vol] 0.8 mmol/L Normal -2.0-2.0 [facility] Comment on above: Performed By: #### A BG #### [facility] [address] [place] [address] Dr. Aileen Bradford BIPAP PRESSURE Normal [facility] Comment on above: Performed By: #### A BG #### [facility] [address] [place] [address] Dr. Aileen Bradford CPAP [facility] Comment on above: Performed By: #### A BG #### [facility] [address] [place] [address] Dr. Aileen Bradford FIO2 40.00 % [facility] Comment on above: Performed By: #### A BG #### [facility] [address] [place] [address] Dr. Aileen Bradford HCO3 (Bld) [Moles/Vol] 27.7 mmol/L Critically high 22.0-26.0 [facility] Comment on above: Performed By: #### A BG #### [facility] [address] [place] [address] Dr. Aileen Bradford LPM [facility] Comment on above: Performed By: #### A BG #### [facility] [address] [place] [address] Dr. Aileen Bradford MINUTE VOLUME Normal [facility] Comment on above: Performed By: #### A BG #### [facility] [address] [place] [address] Dr. Aileen Bradford Oxygen (Bld) [Partial pressure] 101.0 mm[Hg] Critically high 80.0-100.0 [facility] Comment on above: Performed By: #### A BG #### [facility] [address] [place] [address] Dr. Aileen Bradford Oxygen saturation in Blood 97.3 % Normal 95.0-100.0 [facility] Comment on above: Performed By: #### A BG #### [facility] [address] [place] [address] Dr. Aileen Bradford PCO2 60.6 mmHg Critically high 35.0-45.0 [facility] Comment on above: Performed By: #### A BG #### [facility] [address] [place] [address] Dr. Aileen Bradford PEEP 5 [facility] Comment on above: Performed By: #### A BG #### [facility] [address] [place] [address] Dr. Aileen Bradford pH (Bld) 7.269 [pH] Critically low 7.350-7.450 [facility] Comment on above: Performed By: #### A BG #### [facility] [address] [place] [address] Dr. Aileen Bradford PIP [facility] Comment on above: Performed By: #### A BG #### [facility] [address] [place] [address] Dr. Aileen Bradford PS [facility] Comment on above: Performed By: #### A BG #### [facility] [address] [place] [address] Dr. Aileen Bradford PUNCTURE SITE LR [place] [facility] Comment on above: Performed By: #### A BG #### [facility] [address] [place] [address] Dr. Aileen Bradford RATE 14 bpm [facility] Comment on above: Performed By: #### A BG #### [facility] [address] [place] [address] Dr. Aileen Bradford VENT MODE AC-VC Normal [facility] Comment on above: Performed By: #### A BG #### [facility] [address] [address] [address] Aileen Bradford [place] 500 ML Normal [facility] Comment on above: Performed By: #### A BG #### [facility] [address] [place] [address] Dr. Aileen Bradford 02 MODE BIPAP Normal [facility] Comment on above: Performed By: #### T 4, CMP, TSH #### [facility] [address] [place] [address] Dr. Aileen Bradford ALLENS TEST Positive [facility] Comment on above: Performed By: #### T 4, CMP, TSH #### [facility] [address] [place] [address] Dr. Aileen Bradford Base excess Calc (Bld) [Moles/Vol] 7.1 mmol/L Critically high -2.0-2.0 [facility] Comment on above: Performed By: #### T 4, CMP, TSH #### [facility] [address] [place] [address] Dr. Aileen Bradford BIPAP PRESSURE 18/5 Normal [facility] Comment on above: Performed By: #### T 4, CMP, TSH #### [facility] [address] [place] [address] Dr. Aileen Bradford CPAP Normal [facility] Comment on above: Performed By: #### T 4, CMP, TSH #### [facility] [address] [place] [address] Dr. Aileen Bradford FIO2 35.00 % Normal [facility] Comment on above: Performed By: #### T 4, CMP, TSH #### [facility] [address] [place] [address] Dr. Aileen Bradford HCO3 (Bld) [Moles/Vol] 31.8 mmol/L Critically high 22.0-26.0 [facility] Comment on above: Performed By: #### T 4, CMP, TSH #### [facility] [address] [place] [address] Dr. Aileen Bradford [facility] Comment on above: Performed By: #### T 4, CMP, TSH #### [facility] [address] [address] [address] Aileen Bradford MINUTE VOLUME Normal [facility] Comment on above: Performed By: #### T 4, CMP, TSH #### [facility] [address] [address] [address] Aileen Bradford Oxygen (Bld) [Partial pressure] 56.5 mm[Hg] Critically low 80.0-100.0 [facility] Comment on above: Performed By: #### T 4, CMP, TSH #### [facility] [address] [place] [address] Dr. Aileen Bradford Oxygen saturation in Blood 90.4 % Critically low 95.0-100.0 [facility] Comment on above: Performed By: #### T 4, CMP, TSH #### [facility] [address] [place] [address] Dr. Aileen Bradford PCO2 50.7 mmHg Critically high 35.0-45.0 [facility] Comment on above: Performed By: #### T 4, CMP, TSH #### [facility] [address] [place] [address] Dr. Aileen Bradford [facility] Comment on above: Performed By: #### T 4, CMP, TSH #### [facility] [address] [place] [address] Dr. Aileen Bradford pH (Bld) 7.406 [pH] Normal 7.350-7.450 [facility] Comment on above: Performed By: #### T 4, CMP, TSH #### [facility] [address] [address] [address] Aileen Bradford [facility] Comment on above: Performed By: #### T 4, CMP, TSH #### [facility] [address] [address] [address] Aileen Bradford [facility] Comment on above: Performed By: #### T 4, CMP, TSH #### [facility] [address] [place] [address] Dr. Aileen Bradford PUNCTURE SITE LR Normal [facility] Comment on above: Performed By: #### T 4, CMP, TSH #### [facility] [address] [place] [address] Dr. Aileen Bradford RATE 38 bpm [facility] Comment on above: Performed By: #### T 4, CMP, TSH #### [facility] [address] [place] [address] Dr. Aileen Bradford VENT MODE [facility] Comment on above: Performed By: #### T 4, CMP, TSH #### [facility] [address] [place] [address] Dr. Aileen Bradford [place] [facility] Comment on above: Performed By: #### T 4, CMP, TSH #### [facility] [address] [place] [address] Dr. Aileen Bradford CBC AUTO DIFFon 02-14-2022 BASO # 0.0 103/ul Normal 0.0-0.1 [facility] Comment on above: Performed By: #### T 4, CMP, TSH #### [facility] [address] [place] [address] Dr. Aileen Bradford Basophils/100 WBC (Bld) 0.2 % Normal 0.2-2.0 [facility] Comment on above: Performed By: #### T 4, CMP, TSH #### [facility] [address] [place] [address] Dr. Aileen Bradford EO # 0.0 103/ul Normal 0.0-0.7 [facility] Comment on above: Performed By: #### T 4, CMP, TSH #### [facility] [address] [place] [address] Dr. Aileen Bradford Eosinophils/100 WBC (Bld) 0.0 % Critically low 0.9-7.0 [facility] Comment on above: Performed By: #### T 4, CMP, TSH #### [facility] [address] [place] [address] Dr. Aileen Bradford Erythrocyte distribution width (RBC) [Ratio] 15.4 % Critically high 11.0-15.0 [facility] Comment on above: Performed By: #### T 4, CMP, TSH #### [facility] [address] [place] [address] Dr. Aileen Bradford Hematocrit (Bld) [Volume fraction] 37.4 % Normal 36.0-48.0 [facility] Comment on above: Performed By: #### T 4, CMP, TSH #### [facility] [address] [place] [address] Dr. Aileen Bradford Hemoglobin (Bld) [Mass/Vol] 12.0 g/dL Normal 12.0-16.0 [facility] Comment on above: Performed By: #### T 4, CMP, TSH #### [facility] [address] [place] [address] Dr. Aileen Bradford IG # 0.13 10e3/ul Critically high 0.00-0.03 [facility] Comment on above: Performed By: #### T 4, CMP, TSH #### [facility] [address] [place] [address] Dr. Aileen Bradford IG % 1.1 % Critically high 0.0-0.5 [facility] Comment on above: Performed By: #### T 4, CMP, TSH #### [facility] [address] [place] [address] Dr. Aileen Bradford LYMPH # 0.7 103/ul Critically low 1.2-3.8 [facility] Comment on above: Performed By: #### T 4, CMP, TSH #### [facility] [address] [place] [address] Dr. Aileen Bradford Lymphocytes/100 WBC (Bld) 6.3 % Critically low 20.5-60.0 [facility] Comment on above: Performed By: #### T 4, CMP, TSH #### [facility] [address] [place] [address] Dr. Aileen Bradford MANUAL DIFF REQ NO Normal [facility] Comment on above: Performed By: #### T 4, CMP, TSH #### [facility] [address] [address] [address] Aileen Bradford MCH (RBC) [Entitic mass] 30.0 pg Normal 26.7-34.0 [facility] Comment on above: Performed By: #### T 4, CMP, TSH #### [facility] [address] [place] [address] Dr. Aileen Bradford MCHC (RBC) [Mass/Vol] 32.1 g/dL Normal 29.9-35.2 [facility] Comment on above: Performed By: #### T 4, CMP, TSH #### [facility] [address] [place] [address] Dr. Aileen Bradford MCV (RBC) [Entitic vol] 93.5 fL Normal 81.0-99.0 [facility] Comment on above: Performed By: #### T 4, CMP, TSH #### [facility] [address] [place] [address] Dr. Aileen Bradford MONO # 0.4 103/ul Normal 0.3-0.8 [facility] Comment on above: Performed By: #### T 4, CMP, TSH #### [facility] [address] [place] [address] Dr. Aileen Bradford Monocytes/100 WBC (Bld) 3.4 % Normal 1.7-12.0 [facility] Comment on above: Performed By: #### T 4, CMP, TSH #### [facility] [address] [place] [address] Dr. Aileen Bradford NEUT # 10.4 103/ul Critically high 1.4-6.5 [facility] Comment on above: Performed By: #### T 4, CMP, TSH #### [facility] [address] [place] [address] Dr. Aileen Bradford Neutrophils/100 WBC (Bld) 89.0 % Critically high 43.0-75.0 [facility] Comment on above: Performed By: #### T 4, CMP, TSH #### [facility] [address] [place] [address] Dr. Aileen Bradford Platelet mean volume (Bld) [Entitic vol] 8.8 fL Critically low 9.5-13.5 [facility] Comment on above: Performed By: #### T 4, CMP, TSH #### [facility] [address] [place] [address] Dr. Aileen Bradford PLT 282 103/ul Normal 150-450 [facility] Comment on above: Performed By: #### T 4, CMP, TSH #### [facility] [address] [place] [address] Dr. Aileen Bradford RBC 4.00 106/ul Critically low 4.20-5.40 [facility] Comment on above: Performed By: #### T 4, CMP, TSH #### [facility] [address] [place] [address] Dr. Aileen Bradford WBC 11.7 103/ul Critically high 4.0-11.0 [facility] Comment on above: Performed By: #### T 4, CMP, TSH #### [facility] [address] [place] [address] Dr. Aileen Bradford MAGNESIUMon 02-14-2022 Magnesium [Mass/Vol] 2.5 mg/dL Critically high 1.8-2.4 [facility] Comment on above: Performed By: #### B MP #### [facility] [address] [place] [address] Dr. Aileen Bradford PROF CHEM 8 (BAS METB)on Anion gap [Moles/Vol] 9.0 mmol/L Normal [facility] Comment on above: Performed By: #### T 4, CMP, TSH #### [facility] [address] [place] [address] Dr. Aileen Bradford Calcium [Mass/Vol] 8.3 mg/dL Critically low 8.5-10.1 Th [facility] Comment on above: Performed By: #### T 4, CMP, TSH #### [facility] [address] [place] [address] Dr. Aileen Bradford Chloride [Moles/Vol] 106 mmol/L Normal 98-107 [facility] Comment on above: Performed By: #### T 4, CMP, TSH #### [facility] [address] [address] [address] Aileen Bradford CO2 [Moles/Vol] 31.7 mmol/L Normal 21.0-32.0 [facility] Comment on above: Performed By: #### T 4, CMP, TSH #### [facility] [address] [address] [address] Aileen Bradford Creatinine [Mass/Vol] 0.72 mg/dL Normal 0.55-1.02 [facility] Comment on above: Performed By: #### T 4, CMP, TSH #### [facility] [address] [address] [address] Aileen Bradford EGFR-AF BURMESE >60 Normal >=60 [facility] Comment on above: Performed By: #### T 4, CMP, TSH #### [facility] [address] [address] [address] Aileen Bradford EGFR-NON AF BURMESE >60 Normal >=60 [facility] Comment on above: Performed By: #### T 4, CMP, TSH #### [facility] [address] [address] [address] Aileen Bradford Glucose [Mass/Vol] 157 mg/dL Critically high 74-106 [facility] Comment on above: Performed By: #### T 4, CMP, TSH #### [facility] [address] [address] [address] Aileen Bradford Potassium [Moles/Vol] 3.7 mmol/L Normal 3.5-5.1 [facility] Comment on above: Performed By: #### T 4, CMP, TSH #### [facility] [address] [address] [address] Aileen Bradford Sodium [Moles/Vol] 143 mmol/L Normal 136-145 [facility] Comment on above: Performed By: #### T 4, CMP, TSH #### [facility] [address] [address] [address] Aileen Bradford Urea nitrogen [Mass/Vol] 19.0 mg/dL Critically high 7.0-18.0 [facility] Comment on above: Performed By: #### T 4, CMP, TSH #### [facility] [address] [address] [address] Aileen Bradford Urea nitrogen/Creatinine [Mass ratio] 26.4 mg/mg Normal [facility] Comment on above: Performed By: #### T 4, CMP, TSH #### [facility] [address] [place] [address] Dr. Aileen Bradford XR CHEST 1 Von 02-14-2022 XR CHEST 1 V EXAM: XR CHEST 1 V HISTORY: Acute severe exacerbation of asthma COMPARISON: 02/12/2022 TECHNIQUE: AP portable FINDINGS: LUNGS: Interval intubation, endotracheal tube tip is 2.5 cm above the kamryn VASCULATURE: No increased pulmonary vasculature. PLEURA: No pneumothorax, effusion, or pleural thickening. CARDIAC: No cardiomegaly or cardiac silhouette abnormality. MEDIASTINUM: No visible mass or adenopathy. BONES: No fracture or visible bone lesion. OTHER: Enteric tube extends off the field of view IMPRESSION: Normal lines and tubes Clear lungs Electronically authenticated by: ANDRZEJ WARD Date: 2022-02-14 13:17 Normal [facility] BLOOD GASES BTYon 02-13-2022 02 MODE BIPAP Normal [facility] Comment on above: Performed By: #### T 4, CMP, TSH #### [facility] [address] [place] [address] Dr. Aileen Bradford ALLENS TEST Positive Normal [facility] Comment on above: Performed By: #### T 4, CMP, TSH #### [facility] [address] [place] [address] Dr. Aileen Bradford Base excess Calc (Bld) [Moles/Vol] 4.0 mmol/L Critically high -2.0-2.0 [facility] Comment on above: Performed By: #### T 4, CMP, TSH #### [facility] [address] [place] [address] Dr. Aileen Bradford BIPAP PRESSURE 18/5 Normal [facility] Comment on above: Performed By: #### T 4, CMP, TSH #### [facility] [address] [place] [address] Dr. Aileen Bradford CPAP Normal [facility] Comment on above: Performed By: #### T 4, CMP, TSH #### [facility] [address] [address] [address] Aileen Bradford FIO2 35.00 % Normal [facility] Comment on above: Performed By: #### T 4, CMP, TSH #### [facility] [address] [address] [address] Aileen Bradford HCO3 (Bld) [Moles/Vol] 29.8 mmol/L Critically high 22.0-26.0 [facility] Comment on above: Performed By: #### T 4, CMP, TSH #### [facility] [address] [address] [address] Aileen Bradford LPM [facility] Comment on above: Performed By: #### T 4, CMP, TSH #### [facility] [address] [place] [address] Dr. Aileen Bradford MINUTE VOLUME Normal [facility] Comment on above: Performed By: #### T 4, CMP, TSH #### [facility] [address] [address] [address] Aileen Bradford Oxygen (Bld) [Partial pressure] 83.3 mm[Hg] Normal 80.0-100.0 [facility] Comment on above: Performed By: #### T 4, CMP, TSH #### [facility] [address] [place] [address] Dr. Aileen Bradford Oxygen saturation in Blood 96.6 % Normal 95.0-100.0 [facility] Comment on above: Performed By: #### T 4, CMP, TSH #### [facility] [address] [address] [address] Aileen Bradford PCO2 55.7 mmHg Critically high 35.0-45.0 [facility] Comment on above: Performed By: #### T 4, CMP, TSH #### [facility] [address] [address] [address] Aileen Bradford PEEP Normal [facility] Comment on above: Performed By: #### T 4, CMP, TSH #### [facility] [address] [address] [address] Aileen Bradford pH (Bld) 7.337 [pH] Critically low 7.350-7.450 [facility] Comment on above: Performed By: #### T 4, CMP, TSH #### [facility] [address] [address] [address] Aileen Bradford [facility] Comment on above: Performed By: #### T 4, CMP, TSH #### [facility] [address] [address] [address] Aileen Bradford [facility] Comment on above: Performed By: #### T 4, CMP, TSH #### [facility] [address] [place] [address] Dr. Aileen Bradford PUNCTURE SITE LR [facility] Comment on above: Performed By: #### T 4, CMP, TSH #### [facility] [address] [place] [address] Dr. Aileen Bradford [facility] Comment on above: Performed By: #### T 4, CMP, TSH #### [facility] [address] [address] [address] Aileen Bradford [facility] Comment on above: Performed By: #### T 4, CMP, TSH #### [facility] [address] [place] [address] Dr. Aileen Bradford [facility] Comment on above: Performed By: #### T 4, CMP, TSH #### [facility] [address] [place] [address] Dr. Aileen Bradford CBC W MANUAL DIFFon 02-13- 22 ATYPICAL LYMPH # [facility] Comment on above: Performed By: #### T 4, CMP, TSH #### [facility] [address] [place] [address] Dr. Aileen Bradford ATYPICAL LYMPH % [facility] Comment on above: Performed By: #### T 4, CMP, TSH #### [facility] [address] [place] [address] Dr. Aileen Bradford BAND # 0.0 103/ul Normal 0.0-0.3 The [facility] Comment on above: Performed By: #### T 4, CMP, TSH #### [facility] [address] [place] [address] Dr. Aileen Bradford BAND % 0 % Normal 0-5 The [facility] Comment on above: Performed By: #### T 4, CMP, TSH #### [facility] [address] [place] [address] Dr. Aileen Bradford BASOM # 0.00 103/ul Normal 0.00-0.10 [facility] Comment on above: Performed By: #### T 4, CMP, TSH #### [facility] [address] [place] [address] Dr. Aileen Bradford BASOM % 0.0 % Critically low 0.2-2.0 [facility] Comment on above: Performed By: #### T 4, CMP, TSH #### [facility] [address] [place] [address] Dr. Aileen Bradford BLAST # Normal [facility] Comment on above: Performed By: #### T 4, CMP, TSH #### [facility] [address] [place] [address] Dr. Aileen Bradford BLAST % Normal [facility] Comment on above: Performed By: #### T 4, CMP, TSH #### [facility] [address] [place] [address] Dr. Aileen Bradford CORRECTED WBC Normal 4.0-11.0 The [facility] Comment on above: Performed By: #### T 4, CMP, TSH #### [facility] [address] [place] [address] Dr. Aileen Bradford EOS # 0.00 103/ul Normal 0.00-0.70 [facility] Comment on above: Performed By: #### T 4, CMP, TSH #### [facility] [address] [place] [address] Dr. Aileen Bradford EOS% 0.0 % Critically low 0.9-7.0 The [facility] Comment on above: Performed By: #### T 4, CMP, TSH #### [facility] [address] [address] [address] Aileen Bradford HCT 37.3 % Normal 36.0-48.0 [facility] Comment on above: Performed By: #### T 4, CMP, TSH #### [facility] [address] [address] [address] Aileen Bradford HGB 11.9 g/dl Critically low 12.0-16.0 The [facility] Comment on above: Performed By: #### T 4, CMP, TSH #### [facility] [address] [address] [address] Aileen Bradford LYMPHM # 0.24 103/ul Critically low 1.20-3.80 The [facility] Comment on above: Performed By: #### T 4, CMP, TSH #### [facility] [address] [place] [address] Dr. Aileen Bradford LYMPHM% 2.0 % Critically low 20.5-60.0 [facility] Comment on above: Performed By: #### T 4, CMP, TSH #### [facility] [address] [place] [address] Dr. Aileen Bradford MCH 29.6 pg Normal 26.7-34.0 [facility] Comment on above: Performed By: #### T 4, CMP, TSH #### [facility] [address] [place] [address] Dr. Aileen Bradford MCHC 31.9 g/dl Normal 29.9-35.2 The [facility] Comment on above: Performed By: #### T 4, CMP, TSH #### [facility] [address] [place] [address] Dr. Aileen Bradford MCV 92.8 fL Normal 81.0-99.0 The [facility] Comment on above: Performed By: #### T 4, CMP, TSH #### [facility] [address] [place] [address] Dr. Aileen Bradford METAMYELOCYTE # Normal The [facility] Comment on above: Performed By: #### T 4, CMP, TSH #### [facility] [address] [place] [address] Dr. Aileen Bradford METAMYELOCYTE % Normal [facility] Comment on above: Performed By: #### T 4, CMP, TSH #### [facility] [address] [address] [address] Aileen Bradford MONOM# 0.12 103/ul Critically low 0.30-0.80 [facility] Comment on above: Performed By: #### T 4, CMP, TSH #### [facility] [address] [place] [address] Dr. Aileen Bradford MONOM% 1.0 % Critically low 1.7-12.0 [facility] Comment on above: Performed By: #### T 4, CMP, TSH #### [facility] [address] [place] [address] Dr. Aileen Bradford MPV 9.0 fL Critically low 9.5-13.5 [facility] Comment on above: Performed By: #### T 4, CMP, TSH #### [facility] [address] [place] [address] Dr. Aileen Bradford MYELOCYTE # Normal [facility] Comment on above: Performed By: #### T 4, CMP, TSH #### [facility] [address] [place] [address] Dr. Aileen Bradford MYELOCYTE % Normal [facility] Comment on above: Performed By: #### T 4, CMP, TSH #### [facility] [address] [place] [address] Dr. Aileen Bradford NRBC Normal The [facility] Comment on above: Performed By: #### T 4, CMP, TSH #### [facility] [address] [place] [address] Dr. Aileen Bradford PLT 280 103/ul Normal 150-450 The [facility] Comment on above: Performed By: #### T 4, CMP, TSH #### [facility] [address] [place] [address] Dr. Aileen Bradford RBC 4.02 106/ul Critically low 4.20-5.40 [facility] Comment on above: Performed By: #### T 4, CMP, TSH #### [facility] [address] [address] [address] Aileen Bradford RDW 15.4 % Critically high 11.0-15.0 [facility] Comment on above: Performed By: #### T 4, CMP, TSH #### [facility] [address] [place] [address] Dr. Aileen Bradford SEG # 11.54 103/ul Critically high 1.40-6.50 [facility] Comment on above: Performed By: #### T 4, CMP, TSH #### [facility] [address] [place] [address] Dr. Aileen Bradford SEG % 97.0 % Critically high 43.0-75.0 [facility] Comment on above: Performed By: #### T 4, CMP, TSH #### [facility] [address] [place] [address] Dr. Aileen Bradford WBC 11.9 103/ul Critically high 4.0-11.0 [facility] Comment on above: Performed By: #### T 4, CMP, TSH #### [facility] [address] [place] [address] Dr. Aileen Bradford PROF CHEM 8 (BAS METB)on Anion gap [Moles/Vol] 8.4 mmol/L Normal [facility] Comment on above: Performed By: #### T 4, CMP, TSH #### [facility] [address] [place] [address] Dr. Aileen Bradford Calcium [Mass/Vol] 8.4 mg/dL Critically low 8.5-10.1 [facility] Comment on above: Performed By: #### T 4, CMP, TSH #### [facility] [address] [place] [address] Dr. Aileen Bradford Chloride [Moles/Vol] 106 mmol/L Normal 98-107 [facility] Comment on above: Performed By: #### T 4, CMP, TSH #### [facility] [address] [place] [address] Dr. Aileen Bradford CO2 [Moles/Vol] 29.5 mmol/L Normal 21.0-32.0 [facility] Comment on above: Performed By: #### T 4, CMP, TSH #### [facility] [address] [address] [address] Aileen Bradford Creatinine [Mass/Vol] 0.68 mg/dL Normal 0.55-1.02 [facility] Comment on above: Performed By: #### T 4, CMP, TSH #### [facility] [address] [address] [address] Aileen Bradford EGFR-AF BURMESE >60 Normal >=60 [facility] Comment on above: Performed By: #### T 4, CMP, TSH #### [facility] [address] [address] [address] Aileen Bradford EGFR-NON AF BURMESE >60 Normal >=60 [facility] Comment on above: Performed By: #### T 4, CMP, TSH #### [facility] [address] [address] [address] Aileen Bradford Glucose [Mass/Vol] 152 mg/dL Critically high 74-106 [facility] Comment on above: Performed By: #### T 4, CMP, TSH #### [facility] [address] [address] [address] Aileen Bradford Potassium [Moles/Vol] 3.9 mmol/L Normal 3.5-5.1 [facility] Comment on above: Performed By: #### T 4, CMP, TSH #### [facility] [address] [address] [address] Aileen Bradford Sodium [Moles/Vol] 140 mmol/L Normal 136-145 [facility] Comment on above: Performed By: #### T 4, CMP, TSH #### [facility] [address] [address] [address] Aileen Bradford Urea nitrogen [Mass/Vol] 20.0 mg/dL Critically high 7.0-18.0 [facility] Comment on above: Performed By: #### T 4, CMP, TSH #### [facility] [address] [address] [address] Aileen Bradford Urea nitrogen/Creatinine [Mass ratio] 29.4 mg/mg Normal [facility] Comment on above: Performed By: #### T 4, CMP, TSH #### [facility] [address] [address] [address] Aileen Bradford BLOOD GASES BTYon 02-12-2022 02 MODE BIPAP Normal [facility] Comment on above: Performed By: #### B MP #### [facility] [address] [address] [address] Aileen Bradford ALLENS TEST Positive [facility] Comment on above: Performed By: #### B MP #### [facility] [address] [place] [address] Dr. Aileen Bradford Base excess Calc (Bld) [Moles/Vol] 3.2 mmol/L Critically high -2.0-2.0 [facility] Comment on above: Performed By: #### B MP #### [facility] [address] [place] [address] Dr. Aileen Bradford BIPAP PRESSURE 18/5 Normal [facility] Comment on above: Performed By: #### B MP #### [facility] [address] [place] [address] Dr. Aileen Bradford CPAP Normal [facility] Comment on above: Performed By: #### B MP #### [facility] [address] [place] [address] Dr. Aileen Bradford FIO2 60.00 % Normal [facility] Comment on above: Performed By: #### B MP #### [facility] [address] [place] [address] Dr. Aileen Bradford HCO3 (Bld) [Moles/Vol] 29.0 mmol/L Critically high 22.0-26.0 The [facility] Comment on above: Performed By: #### B MP #### [facility] [address] [place] [address] Dr. Aileen Bradford LPM [facility] Comment on above: Performed By: #### B MP #### [facility] [address] [place] [address] Dr. Aileen Bradford MINUTE VOLUME 10 L [facility] Comment on above: Performed By: #### B MP #### [facility] [address] [address] [address] Aileen Bradford Oxygen (Bld) [Partial pressure] 111.0 mm[Hg] Critically high 80.0-100.0 [facility] Comment on above: Performed By: #### B MP #### [facility] [address] [address] [address] Aileen Bradford Oxygen saturation in Blood 98.5 % Normal 95.0-100.0 [facility] Comment on above: Performed By: #### B MP #### [facility] [address] [place] [address] Dr. Aileen Bradford PCO2 54.5 mmHg Critically high 35.0-45.0 [facility] Comment on above: Performed By: #### B MP #### [facility] [address] [place] [address] Dr. Aileen Bradford PEEP [facility] Comment on above: Performed By: #### B MP #### [facility] [address] [address] [address] Aileen Bradford pH (Bld) 7.335 [pH] Critically low 7.350-7.450 [facility] Comment on above: Performed By: #### B MP #### [facility] [address] [place] [address] Dr. Aileen Bradford PIP 18 [facility] Comment on above: Performed By: #### B MP #### [facility] [address] [place] [address] Dr. Aileen Bradford PS 13 [facility] Comment on above: Performed By: #### B MP #### [facility] [address] [place] [address] Dr. Aileen Bradford PUNCTURE SITE RR [facility] Comment on above: Performed By: #### B MP #### [facility] [address] [place] [address] Dr. Aileen Bradford RATE 14 bpm [facility] Comment on above: Performed By: #### B MP #### [facility] [address] [address] [address] Aileen Bradford VENT MODE Normal [facility] Comment on above: Performed By: #### B MP #### [facility] [address] [address] [address] Aileen Bradford [place] 383 ML Normal [facility] Comment on above: Performed By: #### B MP #### [facility] [address] [address] [address] Aileen Bradford 02 MODE BIPAP [facility] Comment on above: Performed By: #### T 4, CMP, TSH #### [facility] [address] [place] [address] Dr. Aileen Bradford ALLENS TEST Positive [facility] Comment on above: Performed By: #### T 4, CMP, TSH #### [facility] [address] [address] [address] Aileen Bradford Base excess Calc (Bld) [Moles/Vol] 2.6 mmol/L Critically high -2.0-2.0 [facility] Comment on above: Performed By: #### T 4, CMP, TSH #### [facility] [address] [address] [address] Aileen Bradford BIPAP PRESSURE 18/5 [facility] Comment on above: Performed By: #### T 4, CMP, TSH #### [facility] [address] [address] [address] Aileen Bradford CPAP Normal [facility] Comment on above: Performed By: #### T 4, CMP, TSH #### [facility] [address] [address] [address] Aileen Bradford FIO2 60.00 % Normal [facility] Comment on above: Performed By: #### T 4, CMP, TSH #### [facility] [address] [place] [address] Dr. Aileen Bradford HCO3 (Bld) [Moles/Vol] 28.9 mmol/L Critically high 22.0-26.0 [facility] Comment on above: Performed By: #### T 4, CMP, TSH #### [facility] [address] [address] [address] Aileen Bradford LPM [facility] Comment on above: Performed By: #### T 4, CMP, TSH #### [facility] [address] [address] [address] Aileen Bradford MINUTE VOLUME 26 L Normal [facility] Comment on above: Performed By: #### T 4, CMP, TSH #### [facility] [address] [place] [address] Dr. Aileen Bradford Oxygen (Bld) [Partial pressure] 98.5 mm[Hg] Normal 80.0-100.0 [facility] Comment on above: Performed By: #### T 4, CMP, TSH #### [facility] [address] [place] [address] Dr. Aileen Bradford Oxygen saturation in Blood 97.6 % Normal 95.0-100.0 [facility] Comment on above: Performed By: #### T 4, CMP, TSH #### [facility] [address] [place] [address] Dr. Aileen Bradford PCO2 57.9 mmHg Critically high 35.0-45.0 The [facility] Comment on above: Performed By: #### T 4, CMP, TSH #### [facility] [address] [place] [address] Dr. Aileen Bradford PEEP 5 [facility] Comment on above: Performed By: #### T 4, CMP, TSH #### [facility] [address] [place] [address] Dr. Aileen Bradford pH (Bld) 7.307 [pH] Critically low 7.350-7.450 [facility] Comment on above: Performed By: #### T 4, CMP, TSH #### [facility] [address] [place] [address] Dr. Aileen Bradford PIP 19 [facility] Comment on above: Performed By: #### T 4, CMP, TSH #### [facility] [address] [place] [address] Dr. Aileen Bradford PS 13 [facility] Comment on above: Performed By: #### T 4, CMP, TSH #### [facility] [address] [address] [address] Aileen Bradford PUNCTURE SITE RR Normal [facility] Comment on above: Performed By: #### T 4, CMP, TSH #### [facility] [address] [address] [address] Aileen Bradford RATE 14 bpm [facility] Comment on above: Performed By: #### T 4, CMP, TSH #### [facility] [address] [place] [address] Dr. Aileen Bradford VENT MODE [facility] Comment on above: Performed By: #### T 4, CMP, TSH #### [facility] [address] [place] [address] Dr. Aileen Bradford [place] 658 ML [facility] Comment on above: Performed By: #### T 4, CMP, TSH #### [facility] [address] [place] [address] Dr. Aileen Bradford 02 MODE BIPAP [facility] Comment on above: Performed By: #### T 4, CMP, TSH #### [facility] [address] [place] [address] Dr. Aileen MARTÍNEZS TEST Positive [facility] Comment on above: Performed By: #### T 4, CMP, TSH #### [facility] [address] [place] [address] Dr. Aileen Bradford Base excess Calc (Bld) [Moles/Vol] 1.8 mmol/L Normal -2.0-2.0 [facility] Comment on above: Performed By: #### T 4, CMP, TSH #### [facility] [address] [place] [address] Dr. Aileen Bradford BIPAP PRESSURE 16/7 [facility] Comment on above: Performed By: #### T 4, CMP, TSH #### [facility] [address] [place] [address] Dr. Aileen Bradford CPAP [facility] Comment on above: Performed By: #### T 4, CMP, TSH #### [facility] [address] [address] [address] Aileen Bradford FIO2 60.00 % Normal [facility] Comment on above: Performed By: #### T 4, CMP, TSH #### [facility] [address] [address] [address] Aileen Bradford HCO3 (Bld) [Moles/Vol] 28.5 mmol/L Critically high 22.0-26.0 [facility] Comment on above: Performed By: #### T 4, CMP, TSH #### [facility] [address] [address] [address] Aileen Bradford LPM [facility] Comment on above: Performed By: #### T 4, CMP, TSH #### [facility] [address] [address] [address] Aileen Bradford MINUTE VOLUME Normal [facility] Comment on above: Performed By: #### T 4, CMP, TSH #### [facility] [address] [address] [address] Aileen Bradford Oxygen (Bld) [Partial pressure] 110.0 mm[Hg] Critically high 80.0-100.0 [facility] Comment on above: Performed By: #### T 4, CMP, TSH #### [facility] [address] [address] [address] Aileen Bradford Oxygen saturation in Blood 98.2 % Normal 95.0-100.0 [facility] Comment on above: Performed By: #### T 4, CMP, TSH #### [facility] [address] [address] [address] Aileen Bradford PCO2 60.3 mmHg Critically high 35.0-45.0 [facility] Comment on above: Performed By: #### T 4, CMP, TSH #### [facility] [address] [address] [address] Aileen Bradford PEEP [facility] Comment on above: Performed By: #### T 4, CMP, TSH #### [facility] [address] [address] [address] Aileen Bradford pH (Bld) 7.283 [pH] Critically low 7.350-7.450 [facility] Comment on above: Performed By: #### T 4, CMP, TSH #### [facility] [address] [address] [address] Aileen Bradford PIP [facility] Comment on above: Performed By: #### T 4, CMP, TSH #### [facility] [address] [address] [address] Aileen Bradford PS [facility] Comment on above: Performed By: #### T 4, CMP, TSH #### [facility] [address] [place] [address] Dr. Aileen Bradford PUNCTURE SITE LR [facility] Comment on above: Performed By: #### T 4, CMP, TSH #### [facility] [address] [place] [address] Dr. Aileen Bradford RATE [facility] Comment on above: Performed By: #### T 4, CMP, TSH #### [facility] [address] [address] [address] Aileen Bradford VENT MODE [facility] Comment on above: Performed By: #### T 4, CMP, TSH #### [facility] [address] [place] [address] Dr. Aileen Bradford [place] [facility] Comment on above: Performed By: #### T 4, CMP, TSH #### [facility] [address] [place] [address] Dr. Aileen Bradford 02 MODE BIPAP [facility] Comment on above: Performed By: #### A BG #### [facility] [address] [place] [address] Dr. Aileen Bradford ALLENS TEST Positive [facility] Comment on above: Performed By: #### A BG #### [facility] [address] [place] [address] Dr. Aileen Bradford Base excess Calc (Bld) [Moles/Vol] 1.0 mmol/L Normal -2.0-2.0 [facility] Comment on above: Performed By: #### A BG #### [facility] [address] [place] [address] Dr. Aileen Bradford BIPAP PRESSURE 14/7 Normal [facility] Comment on above: Performed By: #### A BG #### [facility] [address] [place] [address] Dr. Aileen Bradford CPAP [facility] Comment on above: Performed By: #### A BG #### [facility] [address] [place] [address] Dr. Aileen Bradford FIO2 60.00 % [facility] Comment on above: Performed By: #### A BG #### [facility] [address] [place] [address] Dr. Aileen Bradford HCO3 (Bld) [Moles/Vol] 27.4 mmol/L Critically high 22.0-26.0 [facility] Comment on above: Performed By: #### A BG #### [facility] [address] [place] [address] Dr. Aileen Bradford LPM [facility] Comment on above: Performed By: #### A BG #### [facility] [address] [place] [address] Dr. Aileen Bradford MINUTE VOLUME Normal [facility] Comment on above: Performed By: #### A BG #### [facility] [address] [place] [address] Dr. Aileen Bradford Oxygen (Bld) [Partial pressure] 87.0 mm[Hg] Normal 80.0-100.0 [facility] Comment on above: Performed By: #### A BG #### [facility] [address] [place] [address] Dr. Aileen Bradford Oxygen saturation in Blood 96.3 % Normal 95.0-100.0 [facility] Comment on above: Performed By: #### A BG #### [facility] [address] [place] [address] Dr. Aileen Bradford PCO2 55.9 mmHg Critically high 35.0-45.0 [facility] Comment on above: Performed By: #### A BG #### [facility] [address] [address] [address] Aileen Bradford PEEP [facility] Comment on above: Performed By: #### A BG #### [facility] [address] [address] [address] Aileen Bradford pH (Bld) 7.299 [pH] Critically low 7.350-7.450 [facility] Comment on above: Performed By: #### A BG #### [facility] [address] [address] [address] Aileen Bradfodr PIP [facility] Comment on above: Performed By: #### A BG #### [facility] [address] [place] [address] Dr. Aileen Bradford PS [facility] Comment on above: Performed By: #### A BG #### [facility] [address] [place] [address] Dr. Aileen Bradford PUNCTURE SITE RR [facility] Comment on above: Performed By: #### A BG #### [facility] [address] [address] [address] Aileen Bradford RATE [facility] Comment on above: Performed By: #### A BG #### [facility] [address] [place] [address] Dr. Aileen Bradford VENT MODE [facility] Comment on above: Performed By: #### A BG #### [facility] [address] [place] [address] Dr. Aileen Bradford [place] [facility] Comment on above: Performed By: #### A BG #### [facility] [address] [address] [address] Aileen Bradford 02 MODE VAPOTHERM [facility] Comment on above: Performed By: #### T 4, CMP, TSH #### [facility] [address] [address] [address] Aileen Bradford ALLENS TEST Positive [facility] Comment on above: Performed By: #### T 4, CMP, TSH #### [facility] [address] [place] [address] Dr. Aileen Bradford Base excess Calc (Bld) [Moles/Vol] 0.3 mmol/L Normal -2.0-2.0 [facility] Comment on above: Performed By: #### T 4, CMP, TSH #### [facility] [address] [place] [address] Dr. Aileen Bradford BIPAP PRESSURE Normal [facility] Comment on above: Performed By: #### T 4, CMP, TSH #### [facility] [address] [place] [address] Dr. Aileen Bradford CPAP [facility] Comment on above: Performed By: #### T 4, CMP, TSH #### [facility] [address] [place] [address] Dr. Aileen Bradford FIO2 80.00 % Normal [facility] Comment on above: Performed By: #### T 4, CMP, TSH #### [facility] [address] [place] [address] Dr. Aileen Bradford HCO3 (Bld) [Moles/Vol] 25.8 mmol/L Normal 22.0-26.0 [facility] Comment on above: Performed By: #### T 4, CMP, TSH #### [facility] [address] [place] [address] Dr. Aileen Bradford LPM 40 Normal [facility] Comment on above: Performed By: #### T 4, CMP, TSH #### [facility] [address] [place] [address] Dr. Aileen Bradford MINUTE VOLUME Normal [facility] Comment on above: Performed By: #### T 4, CMP, TSH #### [facility] [address] [place] [address] Dr. Aileen Bradford Oxygen (Bld) [Partial pressure] 79.1 mm[Hg] Critically low 80.0-100.0 [facility] Comment on above: Performed By: #### T 4, CMP, TSH #### [facility] [address] [place] [address] Dr. Aileen Bradford Oxygen saturation in Blood 95.6 % Normal 95.0-100.0 [facility] Comment on above: Performed By: #### T 4, CMP, TSH #### [facility] [address] [address] [address] Aileen Bradford PCO2 46.4 mmHg Critically high 35.0-45.0 [facility] Comment on above: Performed By: #### T 4, CMP, TSH #### [facility] [address] [address] [address] Aileen Bradford [facility] Comment on above: Performed By: #### T 4, CMP, TSH #### [facility] [address] [place] [address] Dr. Aileen Bradford pH (Bld) 7.354 [pH] Normal 7.350-7.450 [facility] Comment on above: Performed By: #### T 4, CMP, TSH #### [facility] [address] [place] [address] Dr. Aileen Bradford [facility] Comment on above: Performed By: #### T 4, CMP, TSH #### [facility] [address] [place] [address] Dr. Aileen Bradford [facility] Comment on above: Performed By: #### T 4, CMP, TSH #### [facility] [address] [place] [address] Dr. Aileen Bradford PUNCTURE SITE RR [facility] Comment on above: Performed By: #### T 4, CMP, TSH #### [facility] [address] [place] [address] Dr. Aileen Bradford [facility] Comment on above: Performed By: #### T 4, CMP, TSH #### [facility] [address] [place] [address] Dr. Aileen Bradford [facility] Comment on above: Performed By: #### T 4, CMP, TSH #### [facility] [address] [place] [address] Dr. Aileen Bradford [facility] Comment on above: Performed By: #### T 4, CMP, TSH #### [facility] [address] [place] [address] Dr. Aileen Bradford CBC AUTO DIFFon 02-12-2022 BASO # 0.0 103/ul Normal 0.0-0.1 [facility] Comment on above: Performed By: #### T 4, CMP, TSH #### [facility] [address] [place] [address] Dr. Aileen Bradford Basophils/100 WBC (Bld) 0.1 % Critically low 0.2-2.0 [facility] Comment on above: Performed By: #### T 4, CMP, TSH #### [facility] [address] [place] [address] Dr. Aileen Bradford EO # 0.0 103/ul Normal 0.0-0.7 [facility] Comment on above: Performed By: #### T 4, CMP, TSH #### [facility] [address] [place] [address] Dr. Aileen Bradford Eosinophils/100 WBC (Bld) 0.0 % Critically low 0.9-7.0 [facility] Comment on above: Performed By: #### T 4, CMP, TSH #### [facility] [address] [place] [address] Dr. Aileen Bradford Erythrocyte distribution width (RBC) [Ratio] 15.1 % Critically high 11.0-15.0 [facility] Comment on above: Performed By: #### T 4, CMP, TSH #### [facility] [address] [place] [address] Dr. Aileen Bradford Hematocrit (Bld) [Volume fraction] 39.4 % Normal 36.0-48.0 [facility] Comment on above: Performed By: #### T 4, CMP, TSH #### [facility] [address] [place] [address] Dr. Aileen Bradford Hemoglobin (Bld) [Mass/Vol] 12.4 g/dL Normal 12.0-16.0 [facility] Comment on above: Performed By: #### T 4, CMP, TSH #### [facility] [address] [address] [address] Aileen rBadford IG # 0.08 10e3/ul Critically high 0.00-0.03 [facility] Comment on above: Performed By: #### T 4, CMP, TSH #### [facility] [address] [address] [address] Aileen Bradford IG % 0.5 % Normal 0.0-0.5 [facility] Comment on above: Performed By: #### T 4, CMP, TSH #### [facility] [address] [address] [address] Aileen Bradford LYMPH # 0.4 103/ul Critically low 1.2-3.8 [facility] Comment on above: Performed By: #### T 4, CMP, TSH #### [facility] [address] [place] [address] Dr. Aileen Bradford Lymphocytes/100 WBC (Bld) 2.8 % Critically low 20.5-60.0 [facility] Comment on above: Performed By: #### T 4, CMP, TSH #### [facility] [address] [address] [address] Aileen Bradford MANUAL DIFF REQ NO Normal [facility] Comment on above: Performed By: #### T 4, CMP, TSH #### [facility] [address] [address] [address] Aileen Bradford MCH (RBC) [Entitic mass] 29.2 pg Normal 26.7-34.0 [facility] Comment on above: Performed By: #### T 4, CMP, TSH #### [facility] [address] [place] [address] Dr. Aileen Bradford MCHC (RBC) [Mass/Vol] 31.5 g/dL Normal 29.9-35.2 [facility] Comment on above: Performed By: #### T 4, CMP, TSH #### [facility] [address] [place] [address] Dr. Aileen Bradford MCV (RBC) [Entitic vol] 92.7 fL Normal 81.0-99.0 [facility] Comment on above: Performed By: #### T 4, CMP, TSH #### [facility] [address] [place] [address] Dr. Aileen Bradford MONO # 0.6 103/ul Normal 0.3-0.8 [facility] Comment on above: Performed By: #### T 4, CMP, TSH #### [facility] [address] [place] [address] Dr. Aileen Bradford Monocytes/100 WBC (Bld) 4.0 % Normal 1.7-12.0 [facility] Comment on above: Performed By: #### T 4, CMP, TSH #### [facility] [address] [place] [address] Dr. Aileen Bradford NEUT # 13.7 103/ul Critically high 1.4-6.5 [facility] Comment on above: Performed By: #### T 4, CMP, TSH #### [facility] [address] [place] [address] Dr. Aileen Bradford Neutrophils/100 WBC (Bld) 92.6 % Critically high 43.0-75.0 [facility] Comment on above: Performed By: #### T 4, CMP, TSH #### [facility] [address] [place] [address] Dr. Aileen Bradford Platelet mean volume (Bld) [Entitic vol] 9.5 fL Normal 9.5-13.5 [facility] Comment on above: Performed By: #### T 4, CMP, TSH #### [facility] [address] [place] [address] Dr. Aileen Bradford PLT 322 103/ul Normal 150-450 [facility] Comment on above: Performed By: #### T 4, CMP, TSH #### [facility] [address] [place] [address] Dr. Aileen Bradford RBC 4.25 106/ul Normal 4.20-5.40 [facility] Comment on above: Performed By: #### T 4, CMP, TSH #### [facility] [address] [place] [address] Dr. Aileen Bradford WBC 14.8 103/ul Critically high 4.0-11.0 [facility] Comment on above: Performed By: #### T 4, CMP, TSH #### [facility] [address] [place] [address] Dr. Aileen Bradford MAGNESIUMon 02-12-2022 Magnesium [Mass/Vol] 2.3 mg/dL Normal 1.8-2.4 [facility] Comment on above: Performed By: #### T 4, CMP, TSH #### [facility] [address] [place] [address] Dr. Aileen Bradford PROF CHEM 8 (BAS METB)on Anion gap [Moles/Vol] 11.6 mmol/L Normal [facility] Comment on above: Performed By: #### T 4, CMP, TSH #### [facility] [address] [place] [address] Dr. Aileen Bradford Calcium [Mass/Vol] 8.6 mg/dL Normal 8.5-10.1 [facility] Comment on above: Performed By: #### T 4, CMP, TSH #### [facility] [address] [place] [address] Dr. Aileen Bradford Chloride [Moles/Vol] 104 mmol/L Normal 98-107 [facility] Comment on above: Performed By: #### T 4, CMP, TSH #### [facility] [address] [place] [address] Dr. Aileen Bradford CO2 [Moles/Vol] 28.7 mmol/L Normal 21.0-32.0 [facility] Comment on above: Performed By: #### T 4, CMP, TSH #### [facility] [address] [place] [address] Dr. Aileen Bradford Creatinine [Mass/Vol] 0.73 mg/dL Normal 0.55-1.02 [facility] Comment on above: Performed By: #### T 4, CMP, TSH #### [facility] [address] [place] [address] Dr. Aileen Bradford EGFR-AF BURMESE >60 Normal >=60 [facility] Comment on above: Performed By: #### T 4, CMP, TSH #### [facility] [address] [address] [address] Aileen Bradford EGFR-NON AF BURMESE >60 Normal >=60 [facility] Comment on above: Performed By: #### T 4, CMP, TSH #### [facility] [address] [address] [address] Aileen Bradford Glucose [Mass/Vol] 156 mg/dL Critically high 74-106 [facility] Comment on above: Performed By: #### T 4, CMP, TSH #### [facility] [address] [place] [address] Dr. Aileen Bradford Potassium [Moles/Vol] 4.3 mmol/L Normal 3.5-5.1 [facility] Comment on above: Performed By: #### T 4, CMP, TSH #### [facility] [address] [place] [address] Dr. Aileen Bradford Sodium [Moles/Vol] 140 mmol/L Normal 136-145 [facility] Comment on above: Performed By: #### T 4, CMP, TSH #### [facility] [address] [place] [address] Dr. Aileen Bradford Urea nitrogen [Mass/Vol] 15.0 mg/dL Normal 7.0-18.0 [facility] Comment on above: Performed By: #### T 4, CMP, TSH #### [facility] [address] [place] [address] Dr. Aileen Bradford Urea nitrogen/Creatinine [Mass ratio] 20.5 mg/mg Normal [facility] Comment on above: Performed By: #### T 4, CMP, TSH #### [facility] [address] [place] [address] Dr. Aileen Bradford RESPIRATORY PANEL PLUSon Adenovirus Not detected Normal NOT DETECTED The [facility] Comment on above: Performed By: #### T 4, CMP, TSH #### [facility] [address] [place] [address] Dr. Aileen Bradford B. Parapertusis Not detected Normal NOT DETECTED [facility] Comment on above: Performed By: #### T 4, CMP, TSH #### [facility] [address] [place] [address] Dr. Aileen Childers Pertussis Not detected Normal NOT DETECTED [facility] Comment on above: Performed By: #### T 4, CMP, TSH #### [facility] [address] [place] [address] Dr. Aileen Bradford Chlamydia Pneumoniae Not detected Normal NOT DETECTED [facility] Comment on above: Performed By: #### T 4, CMP, TSH #### [facility] [address] [place] [address] Dr. Aileen Bradford Coronavirus 229E Not detected Normal NOT DETECTED [facility] Comment on above: Performed By: #### T 4, CMP, TSH #### [facility] [address] [place] [address] Dr. Aileen Bradford Coronavirus HKU1 Not detected Normal NOT DETECTED [facility] Comment on above: Performed By: #### T 4, CMP, TSH #### [facility] [address] [place] [address] Dr. Aileen Bradford Coronavirus NL63 Not detected Normal NOT DETECTED [facility] Comment on above: Performed By: #### T 4, CMP, TSH #### [facility] [address] [place] [address] Dr. Aileen Bradford Coronavirus OC43 Not detected Normal NOT DETECTED [facility] Comment on above: Performed By: #### T 4, CMP, TSH #### [facility] [address] [place] [address] Dr. Aileen Bradford Influenza A H1 2009 Not detected Normal NOT DETECTED [facility] Comment on above: Performed By: #### T 4, CMP, TSH #### [facility] [address] [place] [address] Dr. Aileen Bradford Influenza A H3 Detected Abnormal NOT DETECTED [facility] Comment on above: Performed By: #### T 4, CMP, TSH #### [facility] [address] [place] [address] Dr. Aileen Bradford Influenza B Not detected Normal NOT DETECTED The [facility] Comment on above: Performed By: #### T 4, CMP, TSH #### [facility] [address] [place] [address] Dr. Aileen Bradford Metapneumovirus Not detected Normal NOT DETECTED [facility] Comment on above: Performed By: #### T 4, CMP, TSH #### [facility] [address] [place] [address] Dr. Aileen Bradford Mycoplas. Pneumoniae Not detected Normal NOT DETECTED [facility] Comment on above: Performed By: #### T 4, CMP, TSH #### [facility] [address] [place] [address] Dr. Aileen Bradford Parainfluenza 1 Not detected Normal NOT DETECTED [facility] Comment on above: Performed By: #### T 4, CMP, TSH #### [facility] [address] [place] [address] Dr. Aileen Bradford Parainfluenza 2 Not detected Normal NOT DETECTED [facility] Comment on above: Performed By: #### T 4, CMP, TSH #### [facility] [address] [place] [address] Dr. Aileen Bradford Parainfluenza 3 Not detected Normal NOT DETECTED [facility] Comment on above: Performed By: #### T 4, CMP, TSH #### [facility] [address] [place] [address] Dr. Aileen Bradford Parainfluenza 4 Not detected Normal NOT DETECTED [facility] Comment on above: Performed By: #### T 4, CMP, TSH #### [facility] [address] [place] [address] Dr. Aileen Bradford Rhino/Enterovirus Not detected Normal NOT DETECTED [facility] Comment on above: Performed By: #### T 4, CMP, TSH #### [facility] [address] [place] [address] Dr. Aileen SALGADO Header 1 RESPIRATORY PANEL: VIRUSES Normal [facility] Comment on above: Performed By: #### T 4, CMP, TSH #### [facility] [address] [place] [address] Dr. Yilan Bradford RP2 Header 2 RESPIRATORY PANEL: BACTERIA Normal [facility] Comment on above: Performed By: #### T 4, CMP, TSH #### [facility] [address] [address] [address] Aileen Bradford RSV Not detected Normal NOT DETECTED The [facility] Comment on above: Performed By: #### T 4, CMP, TSH #### [facility] [address] [address] [address] Aileen Bradford SARS-CoV-2 (COVID-19) RNA PRAKASH+probe Ql (Unsp spec) Not detected Normal NOT DETECTED [facility] Comment on above: Performed By: #### T 4, CMP, TSH #### [facility] [address] [address] [address] Aileen Bradford XR CHEST 1 Von 02-12-2022 XR CHEST 1 V EXAMINATION: XR CHES T 1 V HISTORY: SHORTNESS OF BREATH COMPARISON: XR chest 02/11/2022 FINDINGS: LUNGS: Focal mild opacity within right lung base suspected to be summation of overlapping ribs and bronchovascular markings. No convincing acute infiltrates.. VASCULATURE: No increased pulmonary vasculature. PLEURA: No pneumothorax, effusion, or pleural thickening. CARDIAC: No cardiomegaly or cardiac silhouette abnormality. MEDIASTINUM: No visible mass or adenopathy. BONES: No fracture or visible bone lesion. OTHER: Negative. IMPRESSION: 1. No acute cardiopulmonary process. Electronically authenticated by: DARRYL GALDAMEZ Date: 2022-02-12 09:03 Normal [facility] XR CHEST 1 V EXAM: XR CHEST 1 V REASON FOR EXAM: Female, 41 years, SHORTNESS OF BREATH. TECHNIQUE: A single AP view of the chest is performed. COMPARISON: 02/10/2022. FINDINGS: Cardiac monitoring leads project over the chest. The lungs are expanded and clear. Normal pleura. Normal size heart. Normal mediastinum and jaiden. Normal visualized pulmonary arteries. Normal visualized aortic arch and descending thoracic aorta. Normal visualized thoracic spine. Normal visualized ribs, clavicles, and shoulders. There is no demonstrated abnormality of the visualized soft tissue structures of the upper abdomen. IMPRESSION: Normal examination of the chest. Electronically authenticated by: IRENE BAEZ Date: 2022-02-11 22:30 Normal [facility] CBC AUTO DIFFon 02-11-2022 BASO # 0.0 103/ul Normal 0.0-0.1 [facility] Comment on above: Performed By: #### B MP #### [facility] [facility] [address] [address] [address] Aileen Bradford Basophils/100 WBC (Bld) 0.2 % Normal 0.2-2.0 [facility] Comment on above: Performed By: #### B MP #### [facility] [address] [address] [address] Aileen Bradford EO # 0.0 103/ul Normal 0.0-0.7 [facility] Comment on above: Performed By: #### B MP #### [facility] [address] [address] [address] Aileen Bradford Eosinophils/100 WBC (Bld) 0.0 % Critically low 0.9-7.0 [facility] Comment on above: Performed By: #### B MP #### [facility] [address] [address] [address] Aileen Bradford Erythrocyte distribution width (RBC) [Ratio] 15.0 % Normal 11.0-15.0 [facility] Comment on above: Performed By: #### B MP #### [facility] [address] [address] [address] Aileen Bradford Hematocrit (Bld) [Volume fraction] 34.8 % Critically low 36.0-48.0 [facility] Comment on above: Performed By: #### B MP #### [facility] [address] [address] [address] Aileen Bradford Hemoglobin (Bld) [Mass/Vol] 11.3 g/dL Critically low 12.0-16.0 [facility] Comment on above: Performed By: #### B MP #### [facility] [address] [place] [address] Dr. Aileen Bradford IG # 0.02 10e3/ul Normal 0.00-0.03 [facility] Comment on above: Performed By: #### B MP #### [facility] [address] [address] [address] Aileen Bradford IG % 0.4 % Normal 0.0-0.5 [facility] Comment on above: Performed By: #### B MP #### [facility] [address] [place] [address] Dr. Aileen Bradford LYMPH # 0.3 103/ul Critically low 1.2-3.8 The [facility] Comment on above: Performed By: #### B MP #### [facility] [address] [place] [address] Dr. Aileen Bradford Lymphocytes/100 WBC (Bld) 5.3 % Critically low 20.5-60.0 [facility] Comment on above: Performed By: #### B MP #### [facility] [address] [place] [address] Dr. Aileen Bradford MANUAL DIFF REQ NO Normal [facility] Comment on above: Performed By: #### B MP #### [facility] [address] [place] [address] Dr. Aileen Bradford MCH (RBC) [Entitic mass] 29.4 pg Normal 26.7-34.0 [facility] Comment on above: Performed By: #### B MP #### [facility] [address] [place] [address] Dr. Aileen Bradford MCHC (RBC) [Mass/Vol] 32.5 g/dL Normal 29.9-35.2 [facility] Comment on above: Performed By: #### B MP #### [facility] [address] [place] [address] Dr. Aileen Bradford MCV (RBC) [Entitic vol] 90.4 fL Normal 81.0-99.0 [facility] Comment on above: Performed By: #### B MP #### [facility] [address] [place] [address] Dr. Aileen Bradford MONO # 0.0 103/ul Critically low 0.3-0.8 The [facility] Comment on above: Performed By: #### B MP #### [facility] [address] [place] [address] Dr. Aileen Bradford Monocytes/100 WBC (Bld) 0.9 % Critically low 1.7-12.0 [facility] Comment on above: Performed By: #### B MP #### [facility] [address] [address] [address] Aileen Bradford NEUT # 4.4 103/ul Normal 1.4-6.5 [facility] Comment on above: Performed By: #### B MP #### [facility] [address] [address] [address] Aileen Bradford Neutrophils/100 WBC (Bld) 93.2 % Critically high 43.0-75.0 [facility] Comment on above: Performed By: #### B MP #### [facility] [address] [place] [address] Dr. Aileen Bradford Platelet mean volume (Bld) [Entitic vol] 9.6 fL Normal 9.5-13.5 [facility] Comment on above: Performed By: #### B MP #### [facility] [address] [place] [address] Dr. Aileen Bradford PLT 297 103/ul Normal 150-450 [facility] Comment on above: Performed By: #### B MP #### [facility] [address] [place] [address] Dr. Aileen Bradford RBC 3.85 106/ul Critically low 4.20-5.40 The [facility] Comment on above: Performed By: #### B MP #### [facility] [address] [address] [address] Aileen Bradford WBC 4.7 103/ul Normal 4.0-11.0 [facility] Comment on above: Performed By: #### B MP #### [facility] [address] [place] [address] Dr. Aileen Bradford LACTATE/LACTIC ACIDon 2021 Lactate [Moles/Vol] 2.5 mmol/L Critically high 0.4-1.9 [facility] Comment on above: Performed By: #### T 4, CMP, TSH #### [facility] [address] [address] [address] Aileen Bradford PROF CHEM 8 (BAS METB)on Anion gap [Moles/Vol] 14.8 mmol/L Normal [facility] Comment on above: Performed By: #### B MP #### [facility] [address] [place] [address] Dr. Aileen Bradfodr Calcium [Mass/Vol] 8.2 mg/dL Critically low 8.5-10.1 Th [facility] Comment on above: Performed By: #### B MP #### [facility] [address] [place] [address] Dr. Aileen Bradford Chloride [Moles/Vol] 107 mmol/L Normal 98-107 [facility] Comment on above: Performed By: #### B MP #### [facility] [address] [place] [address] Dr. Aileen Bradford CO2 [Moles/Vol] 21.0 mmol/L Normal 21.0-32.0 [facility] Comment on above: Performed By: #### B MP #### [facility] [address] [place] [address] Dr. Aileen Bradford Creatinine [Mass/Vol] 0.76 mg/dL Normal 0.55-1.02 [facility] Comment on above: Performed By: #### B MP #### [facility] [address] [place] [address] Dr. Aileen Bradford EGFR-AF BURMESE >60 Normal >=60 [facility] Comment on above: Performed By: #### B MP #### [facility] [address] [place] [address] Dr. Aileen Bradford EGFR-NON AF BURMESE >60 Normal >=60 [facility] Comment on above: Performed By: #### B MP #### [facility] [address] [place] [address] Dr. Aileen Bradford Glucose [Mass/Vol] 179 mg/dL Critically high 74-106 [facility] Comment on above: Performed By: #### B MP #### [facility] [address] [place] [address] Dr. Aileen Bradford Potassium [Moles/Vol] 3.8 mmol/L Normal 3.5-5.1 [facility] Comment on above: Performed By: #### B MP #### [facility] [address] [place] [address] Dr. Aileen Bradford Sodium [Moles/Vol] 139 mmol/L Normal 136-145 [facility] Comment on above: Performed By: #### B MP #### [facility] [address] [place] [address] Dr. Aileen Bradford Urea nitrogen [Mass/Vol] 8.0 mg/dL Normal 7.0-18.0 [facility] Comment on above: Performed By: #### B MP #### [facility] [address] [place] [address] Dr. Aileen Bradford Urea nitrogen/Creatinine [Mass ratio] 10.5 mg/mg Normal [facility] Comment on above: Performed By: #### B MP #### [facility] [address] [place] [address] Dr. Aileen Bradford BNPon 02-10-2022 Natriuretic peptide B (Bld) [Mass/Vol] 82.0 pg/mL Normal <=450.0 [facility] Comment on above: Performed By: #### T 4, CMP, TSH #### [facility] [address] [place] [address] Dr. Aileen Bradford CBC AUTO DIFFon 02-10-2022 BASO # 0.0 103/ul Normal 0.0-0.1 [facility] Comment on above: Performed By: #### T 4, CMP, TSH #### [facility] [address] [place] [address] Dr. Aileen Bradford Basophils/100 WBC (Bld) 0.6 % Normal 0.2-2.0 [facility] Comment on above: Performed By: #### T 4, CMP, TSH #### [facility] [address] [place] [address] Dr. Aileen Bradford EO # 0.0 103/ul Normal 0.0-0.7 [facility] Comment on above: Performed By: #### T 4, CMP, TSH #### [facility] [address] [place] [address] Dr. Aileen Bradford Eosinophils/100 WBC (Bld) 0.0 % Critically low 0.9-7.0 [facility] Comment on above: Performed By: #### T 4, CMP, TSH #### [facility] [address] [place] [address] Dr. Aileen Bradford Erythrocyte distribution width (RBC) [Ratio] 14.6 % Normal 11.0-15.0 [facility] Comment on above: Performed By: #### T 4, CMP, TSH #### [facility] [address] [place] [address] Dr. Aileen Bradford Hematocrit (Bld) [Volume fraction] 39.5 % Normal 36.0-48.0 [facility] Comment on above: Performed By: #### T 4, CMP, TSH #### [facility] [address] [place] [address] Dr. Aileen Bradford Hemoglobin (Bld) [Mass/Vol] 13.2 g/dL Normal 12.0-16.0 [facility] Comment on above: Performed By: #### T 4, CMP, TSH #### [facility] [address] [place] [address] Dr. Aileen Bradford IG # 0.02 10e3/ul Normal 0.00-0.03 [facility] Comment on above: Performed By: #### T 4, CMP, TSH #### [facility] [address] [place] [address] Dr. Aileen Bradford IG % 0.3 % Normal 0.0-0.5 [facility] Comment on above: Performed By: #### T 4, CMP, TSH #### [facility] [address] [place] [address] Dr. Aileen Bradford LYMPH # 0.3 103/ul Critically low 1.2-3.8 [facility] Comment on above: Performed By: #### T 4, CMP, TSH #### [facility] [address] [place] [address] Dr. Aileen Bradford Lymphocytes/100 WBC (Bld) 4.0 % Critically low 20.5-60.0 [facility] Comment on above: Performed By: #### T 4, CMP, TSH #### [facility] [address] [place] [address] Dr. Aileen Bradford MANUAL DIFF REQ NO Normal The [facility] Comment on above: Performed By: #### T 4, CMP, TSH #### [facility] [address] [place] [address] Dr. Aileen Bradford MCH (RBC) [Entitic mass] 29.9 pg Normal 26.7-34.0 [facility] Comment on above: Performed By: #### T 4, CMP, TSH #### [facility] [address] [place] [address] Dr. Aileen Bradford MCHC (RBC) [Mass/Vol] 33.4 g/dL Normal 29.9-35.2 [facility] Comment on above: Performed By: #### T 4, CMP, TSH #### [facility] [address] [place] [address] Dr. Aileen Bradford MCV (RBC) [Entitic vol] 89.6 fL Normal 81.0-99.0 [facility] Comment on above: Performed By: #### T 4, CMP, TSH #### [facility] [address] [place] [address] Dr. Aileen Bradford MONO # 0.4 103/ul Normal 0.3-0.8 [facility] Comment on above: Performed By: #### T 4, CMP, TSH #### [facility] [address] [place] [address] Dr. Aileen Bradford Monocytes/100 WBC (Bld) 6.4 % Normal 1.7-12.0 [facility] Comment on above: Performed By: #### T 4, CMP, TSH #### [facility] [address] [place] [address] Dr. Aileen Bradford NEUT # 5.5 103/ul Normal 1.4-6.5 [facility] Comment on above: Performed By: #### T 4, CMP, TSH #### [facility] [address] [place] [address] Dr. Aileen Bradford Neutrophils/100 WBC (Bld) 88.7 % Critically high 43.0-75.0 [facility] Comment on above: Performed By: #### T 4, CMP, TSH #### [facility] [address] [place] [address] Dr. Aileen Bradford Platelet mean volume (Bld) [Entitic vol] 9.0 fL Critically low 9.5-13.5 [facility] Comment on above: Performed By: #### T 4, CMP, TSH #### [facility] [address] [place] [address] Dr. Aileen Bradford PLT 317 103/ul Normal 150-450 [facility] Comment on above: Performed By: #### T 4, CMP, TSH #### [facility] [address] [place] [address] Dr. Aileen Bradford RBC 4.41 106/ul Normal 4.20-5.40 [facility] Comment on above: Performed By: #### T 4, CMP, TSH #### [facility] [address] [place] [address] Dr. Aileen Bradford WBC 6.2 103/ul Normal 4.0-11.0 [facility] Comment on above: Performed By: #### T 4, CMP, TSH #### [facility] [address] [place] [address] Dr. Aileen Bradford CTA CHEST WO W CONon 11-26-2 022 CTA CHEST WO W CON EXAMINATION: CTA BERENICE ST WO W CON HISTORY: Pulmonary embolism COMPARISON: None. TECHNIQUE: CT angiography of the pulmonary arteries following the administration of intravenous contrast. Coronal and sagittal MIP (maximum intensity projection) images were performed. 3-D image processing for comparison workstation. Dose reduction techniques were achieved by using automated exposure control and/or adjustment of mA and/or kV according to patient size and/or use of iterative reconstruction technique. FINDINGS: The study is technically adequate for the diagnosis of pulmonary embolism, with good contrast bolus to the pulmonary arteries. TUBES AND IMPLANTS: None. CHEST WALL AND LOWER NECK: Unremarkable. BONES: No suspicious lesions. UPPER ABDOMEN: Unremarkable. MEDIASTINUM AND JAIDEN: Small to moderate hiatal hernia. No lymphadenopathy by CT size criteria AORTA: Unremarkable. PULMONARY ARTERIES: No embolism HEART: Not enlarged CORONARY ARTERIES: No coronary artery calcifications. LUNG AND AIRWAYS: Diffuse bronchial wall thickening. PLEURA: Unremarkable. IMPRESSION: 1. No evidence for pulmonary embolism. 2. Diffuse bronchial wall thickening which may be related to environmental factors such as smoking. 3. Small to moderate hiatal hernia. Electronically authenticated by: JAMES MITCHELL Date: 2022-02-10 21:46 Normal [facility] CULTURE BLOODon 02-10-2022 Microscopic examination of blood, culture Culture Observations: NO GROWTH AT 5 DAYS. Normal [facility] Comment on above: Performed By: #### B MP #### [facility] [address] [place] [address] Dr. Aileen Bradford Microscopic examination of blood, culture Culture Observations: NO GROWTH AT 5 DAYS. Isolate 1 [id number] Normal [facility] Comment on above: Performed By: #### B MP #### [facility] [address] [place] [address] Dr. Aileen Bradford Covid-19 PCR ([facility])on 01-17 SARS-CoV-2 (COVID-19) RNA PRAKASH+probe Ql (Unsp spec) Not detected Normal NOT DETECTED [facility] Comment on above: Result Comment: When diagnostic testing is negative, the possibility of a false negative should be considered in the context of a patient's recent exposures and the presence of clinical signs and symptoms consistent with SARS-CoV-2. This test is not yet approved or cleared by the [place] FDA. When there are no FDA-approved or cleared tests available, and other criteria are met, FDA can make tests available under an emergency access mechanism called an Emergency Use Authorization (EUA). The EUA for this test is supported by the [place] of Health and Human Service's declaration that circumstances exist to justify the emergency use of in vitro diagnostics for the detection and/or diagnosis of the virus that causes COVID-19. This EUA will remain in effect for the duration of the COVID-19 declaration justifying emergency of IVDs, unless it is terminated or revoked by the FDA (after which the test may no longer be used). Performed By: #### T 4, CMP, TSH #### [facility] [address] [place] [address] Dr. Aileen Bradford D-DIMERon 02-10-2022 D-DIMER 2.08 mg/L FEU Critically high <=0.59 [facility] Comment on above: Performed By: #### T 4, RICHARDSON, TSH #### [facility] [address] [place] [address] Dr. Aileen Bradford D-DIMER COMMENTS SEE BELOW Normal [facility] Comment on above: Result Comment: Incr eases in D-Dimer concentration observed with thromboembolic events can be variable due to localization, size, and age of the thrombus. Therefore, a thromboembolic event cannot be diagnosed with certainty on the basis of the reference range. D-Dimers may also be elevated for a variety of disorders including: advanced age, , coronary disease, cancer, liver disease, infection, inflammation, hematoma, DIC, trauma, post-surgery, diabetes, thrombolytic or anticoagulant therapy, stress, and generalized hospitalization. Performed By: #### T 4, RICHARDSON, TSH #### [facility] [address] [place] [address] Dr. Aileen Bradford ER URINE PROFILEon Bilirubin Ql (U) Negative Normal NEGATIVE [facility] Comment on above: Performed By: #### E RUR #### [facility] [address] [place] [address] Dr. Alieen Bradford Clarity (U) CLEAR Normal CLEAR [facility] Comment on above: Performed By: #### E RUR #### [facility] [address] [place] [address] Dr. Aileen Bradford Color (U) LT. YELLOW Normal YELLOW [facility] Comment on above: Performed By: #### E RUR #### [facility] [address] [place] [address] Dr. Aileen EDUARDO A micrscopic examination will be performed if indicated. Normal [facility] Comment on above: Performed By: #### E RUR #### [facility] [address] [place] [address] Dr. Aileen Bradford Glucose Ql (U) Negative Normal NEGATIVE [facility] Comment on above: Performed By: #### E RUR #### [facility] [address] [place] [address] Dr. Aileen Bradford Hemoglobin Ql (U) Negative Normal NEGATIVE [facility] Comment on above: Performed By: #### E RUR #### [facility] [address] [place] [address] Dr. Aileen Bradford Ketones Ql (U) Negative Normal NEGATIVE [facility] Comment on above: Performed By: #### E RUR #### [facility] [address] [place] [address] Dr. Aileen Bradford LEUKOCYTES Negative Normal NEGATIVE [facility] Comment on above: Performed By: #### E RUR #### [facility] [address] [place] [address] Dr. Aileen Bradford Nitrite Ql (U) Negative Normal NEGATIVE [facility] Comment on above: Performed By: #### E RUR #### [facility] [address] [place] [address] Dr. Aileen Bradford pH (U) 5.5 [pH] Normal 5-9 [facility] Comment on above: Performed By: #### E RUR #### [facility] [address] [place] [address] Dr. Aileen Bradford SPEC GRAVITY 1.020 Normal 1.005-<=1.02 5 [facility] Comment on above: Performed By: #### E RUR #### [facility] [address] [place] [address] Dr. Aileen Bradford UA PROTEIN Negative Normal NEGATIVE/ TRACE [facility] Comment on above: Performed By: #### E RUR #### [facility] [address] [place] [address] Dr. Aileen Bradford UR MICRO IND NOT INDICATED Normal [facility] Comment on above: Performed By: #### E RUR #### [facility] [address] [place] [address] Dr. Aileen Bradford Urobilinogen Qn (U) 0.2 {Brandi'U}/dL Normal 0.2 - 1. 0 [facility] Comment on above: Performed By: #### E RUR #### [facility] [address] [address] [address] Aileen Bradford INFLUENZA A AND B AGon 02-10 INFLUENZA A AG Negative Normal NEGATIVE SEE COMMENT [facility] Comment on above: Performed By: #### B MP #### [facility] [address] [address] [address] Aileen Bradford INFLUENZA B AG Negative Normal NEGATIVE SEE COMMENT [facility] Comment on above: Performed By: #### B MP #### [facility] [address] [address] [address] Aileen Bradford INFLUPOSH SEE BELOW Normal [facility] Comment on above: Result Comment: NOTE : Live attenuated influenzae vaccine viruses can cause a positive result for a rapid influenza diagnostic test if administered up to 7 days prior to rapid testing. Performed By: #### B MP #### [facility] [address] [place] [address] Dr. Aileen Bradford INFLUPOSHB SEE BELOW Normal [facility] Comment on above: Result Comment: NOTE : Live attenuated influenzae vaccine viruses can cause a positive result for a rapid influenza diagnostic test if administered up to 7 days prior to rapid testing. Performed By: #### B MP #### [facility] [address] [place] [address] Dr. Aileen Bradford INTERNAL CONTROLS Within Normal Limits Normal Wi thin Normal Limits [facility] Comment on above: Performed By: #### B MP #### [facility] [address] [address] [address] Aileen Bradford LACTATE/LACTIC ACIDon 2021 Lactate [Moles/Vol] 3.5 mmol/L Critically high 0.4-1.9 [facility] Comment on above: Performed By: #### B MP #### [facility] [address] [place] [address] Dr. Aileen Bradford PH VENOUS BLOODon 02-10-2022 PCO2 VENOUS 37.2 mmHg Critically low 40.0-52.0 The [facility] Comment on above: Performed By: #### T 4, CMP, TSH #### [facility] [address] [place] [address] Dr. Aileen Bradford pH VENOUS 7.376 Normal 7.330-7.430 [facility] Comment on above: Performed By: #### T 4, CMP, TSH #### [facility] [address] [place] [address] Dr. Aileen Bradford PREG HCG QUALon 02-10-2022 , QUAL Negative Normal NEGATIVE The [facility] Comment on above: Performed By: #### B MP #### [facility] [address] [place] [address] Dr. Aileen Bradford PROF 14(COMP METB)on 022 Albumin [Mass/Vol] 3.9 g/dL Normal 3.4-5.0 [facility] Comment on above: Performed By: #### T 4, CMP, TSH #### [facility] [address] [place] [address] Dr. Aileen Bradford Albumin/Globulin [Mass ratio] 1.0 {ratio} Normal [facility] Comment on above: Performed By: #### T 4, CMP, TSH #### [facility] [address] [place] [address] Dr. Aileen Bradford ALP [Catalytic activity/Vol] 86 U/L Normal 46-116 [facility] Comment on above: Performed By: #### T 4, CMP, TSH #### [facility] [address] [place] [address] Dr. Aileen Bradford ALT [Catalytic activity/Vol] 26 U/L Normal 14-59 The [facility] Comment on above: Performed By: #### T 4, CMP, TSH #### [facility] [address] [place] [address] Dr. Aileen Bradford Anion gap [Moles/Vol] 16.6 mmol/L Normal [facility] Comment on above: Performed By: #### T 4, CMP, TSH #### [facility] [address] [place] [address] Dr. Aileen Bradford AST [Catalytic activity/Vol] 17 U/L Normal 15-37 [facility] Comment on above: Performed By: #### T 4, CMP, TSH #### [facility] [address] [address] [address] Aileen Bradford Bilirubin [Mass/Vol] 0.2 mg/dL Normal 0.2-1.0 [facility] Comment on above: Performed By: #### T 4, CMP, TSH #### [facility] [address] [address] [address] Aileen Bradford Calcium [Mass/Vol] 9.0 mg/dL Normal 8.5-10.1 [facility] Comment on above: Performed By: #### T 4, CMP, TSH #### [facility] [address] [place] [address] Dr. Aileen Bradford Chloride [Moles/Vol] 103 mmol/L Normal 98-107 [facility] Comment on above: Performed By: #### T 4, CMP, TSH #### [facility] [address] [place] [address] Dr. Aileen Bradford CO2 [Moles/Vol] 22.2 mmol/L Normal 21.0-32.0 [facility] Comment on above: Performed By: #### T 4, CMP, TSH #### [facility] [address] [place] [address] Dr. Aileen Bradford Creatinine [Mass/Vol] 1.01 mg/dL Normal 0.55-1.02 [facility] Comment on above: Performed By: #### T 4, CMP, TSH #### [facility] [address] [place] [address] Dr. Aileen Bradford EGFR-AF BURMESE >60 Normal >=60 [facility] Comment on above: Performed By: #### T 4, CMP, TSH #### [facility] [address] [place] [address] Dr. Aileen Bradford EGFR-NON AF BURMESE >60 Normal >=60 [facility] Comment on above: Performed By: #### T 4, CMP, TSH #### [facility] [address] [place] [address] Dr. Aileen Bradford Globulin (S) [Mass/Vol] 3.9 g/dL Normal [facility] Comment on above: Performed By: #### T 4, CMP, TSH #### [facility] [address] [place] [address] Dr. Aileen Bradford Glucose [Mass/Vol] 133 mg/dL Critically high 74-106 [facility] Comment on above: Performed By: #### T 4, CMP, TSH #### [facility] [address] [place] [address] Dr. Aileen Bradford Potassium [Moles/Vol] 3.8 mmol/L Normal 3.5-5.1 [facility] Comment on above: Performed By: #### T 4, CMP, TSH #### [facility] [address] [place] [address] Dr. Aileen Bradford Protein [Mass/Vol] 7.8 g/dL Normal 6.4-8.2 [facility] Comment on above: Performed By: #### T 4, CMP, TSH #### [facility] [address] [place] [address] Dr. Aileen Bradford Sodium [Moles/Vol] 138 mmol/L Normal 136-145 [facility] Comment on above: Performed By: #### T 4, CMP, TSH #### [facility] [address] [place] [address] Dr. Aileen Bradford Urea nitrogen [Mass/Vol] 12.0 mg/dL Normal 7.0-18.0 [facility] Comment on above: Performed By: #### T 4, CMP, TSH #### [facility] [address] [place] [address] Dr. Aileen Bradford Urea nitrogen/Creatinine [Mass ratio] 11.9 mg/mg Normal [facility] Comment on above: Performed By: #### T 4, CMP, TSH #### [facility] [address] [place] [address] Dr. Aileen Bradford PROTIMEon 02-10-2022 INR Coag (PPP) [Relative time] 0.94 {INR} Normal [facility] Comment on above: Performed By: #### T 4, CMP, TSH #### [facility] [address] [place] [address] Dr. Aileen Bradford INR GUIDELINES SEE BELOW Normal The [facility] Comment on above: Result Comment: RHIANNON RED INR: 2.0 - 3.0 CONDITIONS NOT LISTED BELOW 2.5 - 3.5 FOR PROSTHETIC HEART VALVE REPLACEMENT 2.5 - 3.5 RECURRENT THROMBOSIS Performed By: #### T 4, CMP, TSH #### [facility] [address] [place] [address] Dr. Aileen Bradford PT Coag (PPP) [Time] 10.2 s Normal 9.0-11.6 [facility] Comment on above: Performed By: #### T 4, CMP, TSH #### [facility] [address] [address] [address] Aileen Bradford PTTon 02-10-2022 aPTT Coag (Bld) [Time] 24.7 s Normal 22.3-36.2 The [facility] Comment on above: Performed By: #### T 4, CMP, TSH #### [facility] [address] [place] [address] Dr. Aileen Bradford TROPONIN, HIGH SENSITIVITYon 02-10-2022 HSTROP 4.0 pg/mL Normal 4.0-51.3 The [facility] Comment on above: Result Comment: CUT- OFF POINTS HAVE BEEN ESTABLISHED BASED ON THE FOURTH UNIVERSAL DEFINITIONS OF MYOCARDIAL INFARCTION. THE UPPER REFERENCE LIMIT (URL) OF TROPONIN, DEFINED THE 99TH PERCENTILE OF cTnI DISTRIBUTION IN A REFERENCE POPULATION, HAS BEEN CONFIRMED THE DECISION THRESHOLD FOR NC DIAGNOSIS. Performed By: #### T 4, CMP, TSH #### [facility] [address] [place] [address] Dr. Aileen Bradford TSHon 02-10-2022 TSH 0.550 uIU/mL Normal 0.358-3.740 The [facility] Comment on above: Performed By: #### T 4, CMP, TSH #### [facility] [address] [place], [place] [id number] Dr. Aileen Bradford XR foot RT min 3V*on 021 XR foot RT min 3V* [facility] Main Sun [address] [place] [address] XRay Report Signed Patient: Kaylin Aranda MR#: [id number] : 1980 Acct:[id number] Age/Sex: 40 / F ADM Date: 02/21/21 Loc: XDUCLY Room: Type: [facility] Attending Dr: Mariana HIGHTOWER Ordering Provider: CAMPBELL Huang Date of Service: 02/21/21 XR/XR foot RT min 3V*: Foot pain, right Copies to: CAMPBELL Huang CLINICAL HISTORY: Right foot pain dorsally over the tarsal and metatarsal region for a few weeks. No known injury. XR foot RT min 3V* COMPARISON: None FINDINGS: AP, lateral and oblique views of the right foot were obtained. There is no evidence of fracture, dislocation or bony erosion. Degenerative arthritic changes are shown at the fifth metatarsophalangeal joint. The tarsal bones are intact. No abnormal soft tissue calcification is shown. XR/XR foot RT min 3V* IMPRESSION: NO FRACTURE OR LOCALIZED BONY DESTRUCTION. DEGENERATIVE ARTHRITIC CHANGES TO THE FIFTH METATARSOPHALANGEAL JOINT. Impression dictated by: Anup Hooks M.D.02/21/2021 12:42 PM Dictation Location: [place] [address] Transcribed By: [facility] 02/21/21 1242 Dictated By: Anup Hooks MD 02/21/21 1238 Signed By: 02/21/21 1242 Normal [facility] XR foot RT min 3V* [facility] [employer] Other XR foot RT min 3V* [facility] [employer] Other XR foot RT min 3V* [address] [place] [address] [employer] Other XR foot RT min 3V* [place] [address] [employer] Other XR foot RT min 3V* XRay Report [employer] Other XR foot RT min 3V* Signed [employer] Other XR foot RT min 3V* Patient: Kaylin Aranda MR#: [id number] [employer] Other XR foot RT min 3V* [id number] [employer] Other XR foot RT min 3V* : 1980 Acct:[id number] [employer] Other XR foot RT min 3V* Age/Sex: 40 / F ADM Date: 02/21/21 [employer] Other XR foot RT min 3V* Loc: XDUCLY Room: pe: REG CLI [employer] Other XR foot RT min 3V* Attending Dr: Mariana HIGHTOWER [employer] Other XR foot RT min 3V* Ordering Provider: CAMPBELL Huang [employer] Other XR foot RT min 3V* Date of Service: 02/21/21 [employer] Other XR foot RT min 3V* XR/XR foot RT min 3V*: Foot pain, right [employer] Other XR foot RT min 3V* Copies to: CAMPBELL Huang [employer] Other XR foot RT min 3V* CLINICAL HISTORY: Ri ght foot pain dorsally over the tarsal and metatarsal region for a few weeks. No [employer] Other XR foot RT min 3V* known injury. Nor [employer] Other XR foot RT min 3V* XR foot RT min 3V* [employer] Other XR foot RT min 3V* COMPARISON: None [employer] Other XR foot RT min 3V* FINDINGS: AP, latera l and oblique views of the right foot were obtained. There is no evidence of [employer] Other XR foot RT min 3V* fracture, dislocatio n or bony erosion. Degenerative arthritic changes are shown at the fifth [employer] Other XR foot RT min 3V* metatarsophalangeal joint. The tarsal bones are intact. No abnormal soft tissue calcification is [employer] Other XR foot RT min 3V* shown. [employer] Other XR foot RT min 3V* XR/XR foot RT min 3V* [employer] Other XR foot RT min 3V* IMPRESSION: [employer] Other XR foot RT min 3V* NO FRACTURE OR LOCALIZED BONY DESTRUCTION. [employer] Other XR foot RT min 3V* DEGENERATIVE ARTHRIT IC CHANGES TO THE FIFTH METATARSOPHALANGEAL JOINT. [employer] Other XR foot RT min 3V* Impression dictated by: Anup Hooks M.D.02/21/2021 12:42 PM [employer] Other XR foot RT min 3V* Dictation Location: [place] [address] [employer] Other XR foot RT min 3V* Transcribed By: [facility] 02/21/21 1242 [employer] Other XR foot RT min 3V* Dictated By: Anup Hooks MD 02/21/21 1238 [employer] Other XR foot RT min 3V* Signed By: [employer] Other XR foot RT min 3V* 02/21/[address] [place] [address] [employer] Other Vital Signs Date Time Vital Sign Value Performing Clinician Facility 03-31-2024 15:44-0500 Body height 157.5 cm Jl Lockett MD Work Phone: [facility] 03-31-2024 15:44-0500 Body mass index (BMI) [Ratio] 37.31 kg/m2 Jl Lockett MD Work Phone: [facility] 03-31-2024 15:44-0500 Body temperature 97.81 [degF] Jl Lockett MD Work Phone: [facility] 03-31-2024 15:44-0500 Body weight 92.53 kg Jl Lockett MD Work Phone: [facility] 03-31-2024 15:44-0500 Diastolic blood pressure 66 mm[Hg] Jl Lockett MD Work Phone: [facility] 03-31-2024 15:44-0500 Heart rate 103 /min Jl Lockett MD Work Phone: [facility] 03-31-2024 15:44-0500 Respiratory rate 24 /min Jl Lockett MD Work Phone: [facility] 03-31-2024 15:44-0500 SaO2% (BldA) [Mass fraction] 97 % Jl Lockett MD Work Phone: [facility] 03-31-2024 15:44-0500 Systolic blood pressure 122 mm[Hg] Jl Lockett MD Work Phone: [facility] 03-19-2024 11:53-0500 Body height 157.5 cm Jl Lockett MD Work Phone: [facility] 03-19-2024 11:53-0500 Body mass index (BMI) [Ratio] 36.4 kg/m2 Jl Lockett MD Work Phone: [facility] 03-19-2024 11:53-0500 Body temperature 97.81 [degF] Jl Lockett MD Work Phone: [facility] 03-19-2024 11:53-0500 Body weight 90.27 kg Jl Lockett MD Work Phone: [facility] 03-19-2024 11:53-0500 Diastolic blood pressure 66 mm[Hg] Jl Lockett MD Work Phone: [facility] 03-19-2024 11:53-0500 Heart rate 113 /min Jl Lockett MD Work Phone: [facility] 03-19-2024 11:53-0500 Respiratory rate 22 /min Jl Lockett MD Work Phone: [facility] 03-19-2024 11:53-0500 SaO2% (BldA) [Mass fraction] 99 % Jl Lockett MD Work Phone: [facility] 03-19-2024 11:53-0500 Systolic blood pressure 112 mm[Hg] Jl Lockett MD Work Phone: [facility] 02-10-2024 13:19-0500 Body height 157.5 cm Jl Lockett MD Work Phone: [facility] 02-10-2024 13:19-0500 Body mass index (BMI) [Ratio] 37.68 kg/m2 Jl Lockett MD Work Phone: [facility] 02-10-2024 13:19-0500 Body temperature 97.81 [degF] Jl Lockett MD Work Phone: [facility] 02-10-2024 13:19-0500 Body weight 93.44 kg Jl Lockett MD Work Phone: [facility] 02-10-2024 13:19-0500 Diastolic blood pressure 84 mm[Hg] Jl Lockett MD Work Phone: [facility] 02-10-2024 13:19-0500 Heart rate 101 /min Jl Lockett MD Work Phone: [facility] 02-10-2024 13:19-0500 Respiratory rate 20 /min Jl Lockett MD Work Phone: [facility] 02-10-2024 13:19-0500 SaO2% (BldA) [Mass fraction] 98 % Jl Lockett MD Work Phone: [facility] 02-10-2024 13:19-0500 Systolic blood pressure 120 mm[Hg] Jl Lockett MD Work Phone: [facility] 12-26-2023 15:03-0400 Body height 157.5 cm lJ Lockett MD Work Phone: [facility] 12-26-2023 15:03-0400 Body mass index (BMI) [Ratio] 38.41 kg/m2 Jl Lockett MD Work Phone: [facility] 12-26-2023 15:03-0400 Body temperature 97.81 [degF] Jl Lockett MD Work Phone: [facility] 12-26-2023 15:03-0400 Body weight 95.25 kg Jl Lockett MD Work Phone: [facility] 12-26-2023 15:03-0400 Diastolic blood pressure 80 mm[Hg] Jl Lockett MD Work Phone: [facility] 12-26-2023 15:03-0400 Heart rate 127 /min Jl Lockett MD Work Phone: [facility] 12-26-2023 15:03-0400 Respiratory rate 20 /min Jl Lockett MD Work Phone: [facility] 12-26-2023 15:03-0400 SaO2% (BldA) [Mass fraction] 96 % Jl Lockett MD Work Phone: [facility] 12-26-2023 15:03-0400 Systolic blood pressure 130 mm[Hg] Jl Lockett MD Work Phone: [facility] 09-02-2021 10:35-0400 Body height 158.75 cm Mya Del Real Other [employer] Other 09-02-2021 10:35-0400 Body mass index (BMI) [Ratio] 33.4 kg/m2 Mya Del Real Other [employer] Other 09-02-2021 10:35-0400 Body temperature 100 [degF] Mya Del Real Other [employer] Other 09-02-2021 10:35-0400 Body weight 84.19 kg Mya Del Real Other [employer] Other 09-02-2021 10:35-0400 Diastolic blood pressure 98 mm[Hg] Mya Del Real Other [employer] Other 09-02-2021 10:35-0400 Respiratory rate 18 /min Mya Del Real Other [employer] Other 09-02-2021 10:35-0400 SaO2% (BldA) [Mass fraction] 98 % Mya Del Real Other [employer] Other 09-02-2021 10:35-0400 Systolic blood pressure 136 mm[Hg] Mya Del Real Other [employer] Other 02-21-2021 12:35-0500 Body height 158.75 cm Mariana Lopez Other [employer] Other 02-21-2021 12:35-0500 Body mass index (BMI) [Ratio] 34.37 kg/m2 Mariana Lopezmond Other [employer] Other 02-21-2021 12:35-0500 Body temperature 98 [degF] Mariana Lopezmond Other [employer] Other 02-21-2021 12:35-0500 Body weight 86.64 kg Mariana Lopezmond Other [employer] Other 02-21-2021 12:35-0500 Diastolic blood pressure 91 mm[Hg] Mariana Lopez Other [employer] Other 02-21-2021 12:35-0500 Respiratory rate 18 /min Mariana Lopez Other [employer] Other 02-21-2021 12:35-0500 SaO2% (BldA) [Mass fraction] 97 % Mariana Lopez Other [employer] Other 02-21-2021 12:35-0500 Systolic blood pressure 134 mm[Hg] Mariana Lopez Other [employer] Other Encounters Encounter Date Encounter Type Care Provider Facility Start: 03-31-2024 End: 03-31-2024 Office outpatient visit 25 minutes Jl Lockett MD Work Phone: [facility] Comment on above: Asthma, extrinsic, w ithout status asthmaticus, mild intermittent, uncomplicated (CMS/HCC) (Primary Dx); Pyogenic granuloma; Seasonal allergic rhinitis due to pollen; Insulin resistance; Class 2 severe obesity due to excess calories with serious comorbidity and body mass index (BMI) of 36.0 to 36.9 in adult (CMS/HCC); Breast cancer screening by mammogram Start: 03-31-2024 End: 03-31-2024 ambulatory JL LOCKETT Not Available Start: 03-31-2024 End: 03-31-2024 Bamboo flowsheet Jl Lockett MD Work Phone: [facility] Start: 03-31-2024 End: 03-31-2024 Bamboo flowsheet Jl Lockett MD Work Phone: [facility] Start: 03-19-2024 End: 03-19-2024 Bamboo flowsheet Jl Lockett MD Work Phone: [facility] Start: 03-19-2024 End: 03-19-2024 Bamboo flowsheet Jl Lockett MD Work Phone: [facility] Start: 03-19-2024 End: 03-19-2024 Office outpatient visit 15 minutes Jl Lockett MD Work Phone: [facility] Comment on above: Pyogenic granuloma ( Primary Dx); Acute non-recurrent pansinusitis; Prediabetes Start: 03-19-2024 End: 03-19-2024 ambulatory JL LOCKETT Not Available Start: 02-10-2024 End: 02-10-2024 Bamboo flowsheet Jl Lockett MD Work Phone: [facility] Start: 02-10-2024 End: 02-10-2024 Bamboo flowsheet Jl Lockett MD Work Phone: [facility] Start: 02-10-2024 End: 02-10-2024 Office outpatient visit 15 minutes Jl Lockett MD Work Phone: [facility] Comment on above: Pyogenic granuloma ( Primary Dx); Asthma, extrinsic, without status asthmaticus, mild intermittent, uncomplicated (CMS/HCC) Start: 02-10-2024 End: 02-10-2024 ambulatory JL LOCKETT Not Available Start: 12-26-2023 End: 12-26-2023 Office outpatient visit 25 minutes Jl Lockett MD Work Phone: [facility] Comment on above: Asthma, extrinsic, w ithout status asthmaticus, mild intermittent, uncomplicated (CMS/HCC) (Primary Dx); Seasonal allergic rhinitis due to pollen; Obesity (BMI 30-39.9); Insulin resistance; Nausea Start: 12-26-2023 End: 12-26-2023 ambulatory JL LOCKETT Not Available Start: 12-26-2023 End: 12-26-2023 Bamboo flowsheet Jl Lockett MD Work Phone: [facility] Start: 12-26-2023 End: 12-26-2023 Bamboo flowsheet Jl Lockett MD Work Phone: [facility] Start: 09-25-2023 Patient encounter procedure Jl Lockett MD Work Phone: [facility] Start: 09-25-2023 End: 09-25-2023 ambulatory JL LEVY Not Available Start: 05-09-2023 End: 05-09-2023 ambulatory JL LOCKETT Not Available Start: 04-04-2023 End: 04-04-2023 ambulatory JL LOCKETT Not Available Start: 07-05-2022 End: 07-06-[address] MINO MCCORMACK Facility:[facility] Start: 04-26-2022 End: 04-27-[address] MINO MCCORMACK Facility:[facility] Start: 03-22-2022 End: 03-23-[address] MINO MCCORMACK Facility:[facility] Start: 02-15-2022 End: 02-25-2022 Evaluation and management of inpatient CARROLL RUSHING [facility] Start: 02-11-2022 End: 02-15-2022 Evaluation and management of inpatient SHAIKH Nathalie CARMONA Facility:[facility] Start: 09-02-2021 End: 09-02-2021 ambulatory Mya Del Real Other [employer] Other Start: 09-02-2021 Office outpatient vi sit 15 minutes Mya Del Real [facility] Start: 02-21-2021 End: 02-21-2021 ambulatory Mariana Lopez Other [employer] Other Start: 02-21-2021 Office outpatient ne w 20 minutes Marianastefan Lopez [facility] Procedures Date Procedure Procedure Detail Performing Clinician Start: 02-14-2022 Respiratory Ventilat ion, Less than [address] MINO MCCORMACK Start: 02-11-2022 Assistance with Resp iratory Ventilation, 24-96 Consecutive Hours, Continuous Positive Airway Pressure DR MINO MCCORMACK Plan of Treatment Date Care Activity Detail Author Start: 07-16-2024 End: 07-16-2024 Patient encounter procedure 07/16/2024 3:00 PM EDT Office Visit [facility] [address] [place] [address] Jl Lockett MD [address] [place] [phone] [facility] Start: 03-31-2024 End: 03-31-2024 [facility] encounter [facility] Comment on above: Arrived Start: 03-31-2024 End: 05-29-2025 MG Breast - bilateral Screening Bilateral screening mammogram Imaging Routine Breast cancer screening by mammogram Expected: 03/31/2024, Expires: 05/29/2025 [facility] Work Phone: Comment on above: Expected: 03/31/2024 , Expires: 05/29/2025 Start: 03-30-2024 End: 03-30-2024 Patient encounter procedure 03/30/2024 1:40 PM EST Office Visit [facility] [address] [place] [address] [place], [facility] [address] [place], [place] [id number] [facility] Start: 03-19-2024 End: 03-19-2024 Patient encounter procedure 03/19/2024 11:45 AM EST Office Visit [facility] [address] [place] [phone] Jl Lockett MD [address] [place] [phone] Arrived [facility] Comment on above: Arrived Start: 02-10-2024 End: 02-10-2024 Patient encounter procedure 02/10/2024 1:15 PM EST Office Visit [facility] [address] [place] [address] Jl Lockett MD [address] [place] [phone] Arrived [facility] Comment on above: Arrived Start: 12-26-2023 End: 12-26-2023 Patient encounter procedure 12/26/2023 3:00 PM EDT Office Visit [facility] [address] [place] [phone] Jl Lockett MD [address] [place] [phone] Arrived [facility] Comment on above: Arrived Start: 11-17-2023 Influenza vaccination Influenz a Vaccine (#1) [facility] Start: 2021 Screening for malign ant neoplasm of breast Mammogram [facility] Start: 10-02-2011 Screening for malign ant neoplasm of cervix [facility] Start: 2002 Screening for malign ant neoplasm of cervix Pap Smear [facility] Payers Date Payer Category Payer Private Health Insurance [employer] [id number] 5 2024 Private Health Insurance [id number] 2022 [facility] er [id number] 5 2022 Unknown BCBS BCBS xxxxxx [id number] 2022-Present [phone] [address] [place] [address] [id number] 2022 Unknown [id number] 1980 Unknown [id number] [id number] .2.175 1980 Unknown [id number] [id number] .2.593 1981 Unknown [id number] 2.16840.1.160870.3.579 .2.593 1981 Unknown [id number] 2.16840.1.288110.3.579 .2.593 1981 Unknown [id number] 2.16.840.1.910882.3.579 .2.593 1981 Unknown [id number] 2.16.840.1.008985.3.579 .2.1259 1981 Unknown [id number] 2.16.840.1.135218.3.579 .2.1259 1981 Unknown [id number] 2.16.840.1.179936.3.579 .2.9 1980 Unknown [id number] 2.16.840.1.971218.3.579 .2.1259 1981 Unknown [id number] 2.16.840.1.727345.3.579 .2.1259 1980 Unknown [id number] 2.16.840.1.311667.3.579 .2.1259 1981 Unknown [id number] 2.16.840.1.461667.3.579 .2.1259 1958 Private Health Insurance [id number] Private Health Insurance [id number] Unknown [id number] Social History Date Type Detail Facility Start: 04-04-2023 End: 09-25-2023 Sex Assigned At [facility] Start: 04-04-2023 Tobacco smoking status NHIS Never sm oked tobacco [facility] Start: 04-04-2023 Tobacco use and exposure Smoke less tobacco non-user [facility] Start: 04-04-2023 End: 09-25-2023 [facility] of Social [facility] How often do you nee d to have someone help you when you read instructions, pamphlets, or other written material from your doctor or pharmacy [SILS] Never [facility] Do you belong to any clubs or organizations such as restorationism groups, unions, fraternal or athletic groups, or school groups? No [facility] Are you now , , , , never or living with a partner? [facility] How often to you hav e a drink containing alcohol? 2-4 times a month [facility] How many standard dr inks containing alcohol do you have on a typical day? 3 or 4 [facility] How often do you hav e 6 or more drinks on 1 occasion? Never [facility] Do you feel stress - tense, restless, nervous, or anxious, or unable to sleep at night because your mind is troubled all the time - these days [OSQ] Not at all [facility] (I/We) worried wheth er (my/our) food would run out before (I/we) got money to buy more. Never true [facility] Start: 1980 Sex assigned at Not on file [facility] Clinical Notes 02-21-2021 to 03-31-2024 Jl Lockett MD - 03/31/2024 4:08 PM Ryan Lockett MD - 03/31/2024 4:07 PM Ryan Lockett MD - 03/31/2024 4:07 PM Ryan Lockett MD - 03/31/2024 4:07 PM EST Note Date & Type Note Facility 03-31-2024 History of Presen t illness Narrative Associated Problem(s): Pyogenic granuloma Lesion smaller and repeat cryo. Used liquid nitrogen to perform 3 freeze thaw cycles and patient tolerated well. Warned may form blister and likely will take multiple treatments. Associated Problem(s): Insulin resistance Tolerating semaglutide and weight down 19 pounds. Increase dose when due for fill. Associated Problem(s): Class 2 severe obesity due to excess calories with serious comorbidity and body mass index (BMI) of 36.0 to 36.9 in adult (CMS/HCC) Weight loss indicated Associated Problem(s): Asthma, extrinsic, without status asthmaticus, mild intermittent, uncomplicated (CMS/[facility]) Mild symptoms and continue breo. Use albuterol PRN. Associated Problem(s): Allergic rhinitis due to pollen Symptoms controlled with medication and continue. Images from the original note were not included. Subjective Patient ID: Kaylin Aranda is a 43 y.o. female who presents for Follow-up (3m f/up). Follow up asthma, allergies, and weight. Patient feels well today. Asthma controlled with breo. Mild SOB with exertion but no cough. No nocturnal cough or SOB. Using albuterol few times a week and helps when needed. Allergies controlled with medication. No congestion or rhinorrhea. No HENRY or sinus pressure. Ears not plugged or popping. Taking semaglutide and doing well. Weight down 19 pounds since September. Tolerating medication other than nausea day after injection but no emesis. Active and exercising several days a week. Eating less and smaller portions. Pyogenic granuloma frozen in January and much smaller. Still redness but flat. Requests repeat cryo. Review of Systems Respiratory: Negative for cough, shortness of breath and wheezing. Cardiovascular: Negative for chest pain and palpitations. Gastrointestinal: Negative for abdominal pain, diarrhea, nausea and vomiting. Genitourinary: Negative for dysuria. Objective Physical Exam Constitutional: General: She is not in acute distress. Appearance: Normal appearance. HENT: Head: Normocephalic. Right Ear: Tympanic membrane normal. Left Ear: Tympanic membrane normal. Eyes: Extraocular Movements: Extraocular movements intact. Pupils: Pupils are equal, round, and reactive to light. Cardiovascular: Rate and Rhythm: Normal rate and regular rhythm. Heart sounds: No murmur heard. No friction rub. No gallop. Pulmonary: Effort: Pulmonary effort is normal. Breath sounds: Normal breath sounds. No wheezing, rhonchi or rales. Abdominal: General: Bowel sounds are normal. There is no distension. Palpations: Abdomen is soft. Tenderness: There is no abdominal tenderness. There is no guarding or rebound. Musculoskeletal: Cervical back: Neck supple. Right lower leg: No edema. Left lower leg: No edema. Neurological: Mental Status: She is alert. Assessment/Plan Problem List Items Addressed This Visit Allergic rhinitis due to pollen Symptoms controlled with medication and continue. Asthma, extrinsic, without status asthmaticus, mild intermittent, uncomplicated (CMS/HCC) - Primary Mild symptoms and continue breo. Use albuterol PRN. Insulin resistance Tolerating semaglutide and weight down 19 pounds. Increase dose when due for fill. Class 2 severe obesity due to excess calories with serious comorbidity and body mass index (BMI) of 36.0 to 36.9 in adult (CMS/HCC) Weight loss indicated Pyogenic granuloma Lesion smaller and repeat cryo. Used liquid nitrogen to perform 3 freeze thaw cycles and patient tolerated well. Warned may form blister and likely will take multiple treatments. Other Visit Diagnoses Breast cancer screening by mammogram Relevant Orders Bilateral screening mammogram documented in this encounter [facility] 03-19-2024 History of Presen t illness Narrative Associated Problem(s): Prediabetes Will monitor labs Associated Problem(s): Class 2 severe obesity due to excess calories with serious comorbidity and body mass index (BMI) of 36.0 to 36.9 in adult ([facility]) Weight loss indicated Associated Problem(s): Pyogenic granuloma Lesion smaller and will return for repeat cryo. Associated Problem(s): Acute non-recurrent pansinusitis Take antibiotics BID for 10 days. Use prednisone for inflammation. Use sudafed or other decongestants as needed. Use Robitussin or Robitussin-DM for cough. Can use afrin for congestion but no longer than 3 days. Can use Mucinex to bring up phlegm. Use Motrin or Tylenol as needed for fever, aches, or pains. Increase fluid intake and rest. Should improve over next 5-7 days and if no better or worse call for re-evaluation. Images from the original note were not included. Subjective Patient ID: Kaylin Aranda is a 43 y.o. female who presents for Follow-up ([facility] er f/up). ER follow up from 03/05 for bleeding. Seen 02/09 and performed cryo on pyogenic granuloma. Part came off but still attached. Bumped and started to bleed. Continued to bleed and went to ER. Applied pressure dressing and stopped. Healing well and smaller than prior to cryo. C/o cough, congestion, and rhinorrhea x 1 week. Afebrile. Severe fatigue and no energy. Mild cough dry and nonproductive. Denies chest tightness or SOB. HENRY and sinus pressure in forehead and cheeks along with postnasal drip. Ears plugged and popping. Sore throat and pain to swallow. Mild nausea. recently sick. Using OTC medication and mild relief. No improvement in symptoms since onset. Review of Systems Respiratory: Negative for cough, shortness of breath and wheezing. Cardiovascular: Negative for chest pain and palpitations. Gastrointestinal: Negative for abdominal pain, diarrhea, nausea and vomiting. Genitourinary: Negative for dysuria. Objective Physical Exam Constitutional: General: She is not in acute distress. Appearance: Normal appearance. HENT: Head: Normocephalic. Right Ear: Tympanic membrane normal. Left Ear: Tympanic membrane normal. Eyes: Extraocular Movements: Extraocular movements intact. Pupils: Pupils are equal, round, and reactive to light. Cardiovascular: Rate and Rhythm: Normal rate and regular rhythm. Heart sounds: No murmur heard. No friction rub. No gallop. Pulmonary: Effort: Pulmonary effort is normal. Breath sounds: Normal breath sounds. No wheezing, rhonchi or rales. Abdominal: General: Bowel sounds are normal. There is no distension. Palpations: Abdomen is soft. Tenderness: There is no abdominal tenderness. There is no guarding or rebound. Musculoskeletal: Cervical back: Neck supple. Right lower leg: No edema. Left lower leg: No edema. Neurological: Mental Status: She is alert. Assessment/Plan Problem List Items Addressed This Visit Acute non-recurrent pansinusitis Take antibiotics BID for 10 days. Use prednisone for inflammation. Use sudafed or other decongestants as needed. Use Robitussin or Robitussin-DM for cough. Can use afrin for congestion but no longer than 3 days. Can use Mucinex to bring up phlegm. Use Motrin or Tylenol as needed for fever, aches, or pains. Increase fluid intake and rest. Should improve over next 5-7 days and if no better or worse call for re-evaluation. Relevant Medications cefdinir (Omnicef) 300 MG capsule predniSONE (Deltasone) 50 MG tablet promethazine (Phenergan) 25 MG tablet Pyogenic granuloma - Primary Lesion smaller and will return for repeat cryo. documented in this encounter [facility] 02-10-2024 History of Presen t illness Narrative Associated Problem(s): Pyogenic granuloma Discussed benign nature of lesion and treatment options. Used liquid nitrogen to perform 3 freeze thaw cycles and patient tolerated well. Warned may form blister and likely will take multiple treatments. Recommend schedule with dermatology and if doesn't respond to treatment will need excision. Images from the original note were not included. Subjective Patient ID: Kaylin Aranda is a 43 y.o. female who presents for Hand Injury (Growth on side of right hand). C/o lesion on side right hand for several weeks. Lesion on pinky side of mid outer palm. Started off pink in color and raised. Increased in size and will bleed. Not coming off and keeps bleeding. Not painful and doesn't bother patient. Slightly larger since first appeared. Never had in past. Only 1 lesion on hand. Hand Injury Pertinent negatives include no chest pain. Review of Systems Respiratory: Negative for cough, shortness of breath and wheezing. Cardiovascular: Negative for chest pain and palpitations. Gastrointestinal: Negative for abdominal pain, diarrhea, nausea and vomiting. Genitourinary: Negative for dysuria. Objective Physical Exam Constitutional: General: She is not in acute distress. Appearance: Normal appearance. HENT: Head: Normocephalic. Right Ear: Tympanic membrane normal. Left Ear: Tympanic membrane normal. Eyes: Extraocular Movements: Extraocular movements intact. Pupils: Pupils are equal, round, and reactive to light. Cardiovascular: Rate and Rhythm: Normal rate and regular rhythm. Heart sounds: No murmur heard. No friction rub. No gallop. Pulmonary: Effort: Pulmonary effort is normal. Breath sounds: Normal breath sounds. No wheezing, rhonchi or rales. Abdominal: General: Bowel sounds are normal. There is no distension. Palpations: Abdomen is soft. Tenderness: There is no abdominal tenderness. There is no guarding or rebound. Musculoskeletal: Cervical back: Neck supple. Right lower leg: No edema. Left lower leg: No edema. Skin: Comments: Round, raised 2-4 mm pyogenic granuloma on edge of palm on pinky side of hand Neurological: Mental Status: She is alert. Assessment/Plan Problem List Items Addressed This Visit Asthma, extrinsic, without status asthmaticus, mild intermittent, uncomplicated (CMS/HCC) Relevant Medications albuterol (2.5 MG/3ML) 0.083% nebulizer solution Pyogenic granuloma - Primary Discussed benign nature of lesion and treatment options. Used liquid nitrogen to perform 3 freeze thaw cycles and patient tolerated well. Warned may form blister and likely will take multiple treatments. Recommend schedule with dermatology and if doesn't respond to treatment will need excision. documented in this encounter [facility] 12-26-2023 History of Presen t illness Narrative Associated Problem(s): Insulin resistance Tolerating semaglutide and weight down 13 pounds. Associated Problem(s): Obesity (BMI 30-39.9) Weight down 13 pounds. Discussed proper diet and regular aerobic exercise. Recommend Weight Watchers and need to limit calories and smaller portions. Need to increase activity and regular aerobic exercise several days a week for 30 minutes at a time. Associated Problem(s): Asthma, extrinsic, without status asthmaticus, mild intermittent, uncomplicated (CMS/HCC) Mild symptoms and continue breo. Use albuterol PRN. Associated Problem(s): Allergic rhinitis due to pollen Symptoms controlled with medication and continue. Images from the original note were not included. Subjective Patient ID: Kaylin Aranda is a 43 y.o. female who presents for Follow-up (3m ) and Nausea. Follow up asthma, allergies, and weight. Asthma controlled with breo. Mild SOB with exertion but no cough. No nocturnal cough or SOB. Using albuterol few times a week and helps when needed. Allergies controlled with medication. No congestion or rhinorrhea. No HENRY or sinus pressure. Ears not plugged or popping. Started semaglutide and doing well. Weight down 13 pounds. Tolerating medication other than nausea day after injection but no emesis. Active and exercising several days a week. Eating less and smaller portions. Review of Systems Respiratory: Negative for cough, shortness of breath and wheezing. Cardiovascular: Negative for chest pain and palpitations. Gastrointestinal: Negative for abdominal pain, diarrhea, nausea and vomiting. Genitourinary: Negative for dysuria. Objective Physical Exam Constitutional: General: She is not in acute distress. Appearance: Normal appearance. HENT: Head: Normocephalic. Right Ear: Tympanic membrane normal. Left Ear: Tympanic membrane normal. Eyes: Extraocular Movements: Extraocular movements intact. Pupils: Pupils are equal, round, and reactive to light. Cardiovascular: Rate and Rhythm: Normal rate and regular rhythm. Heart sounds: No murmur heard. No friction rub. No gallop. Pulmonary: Effort: Pulmonary effort is normal. Breath sounds: Normal breath sounds. No wheezing, rhonchi or rales. Abdominal: General: Bowel sounds are normal. There is no distension. Palpations: Abdomen is soft. Tenderness: There is no abdominal tenderness. There is no guarding or rebound. Musculoskeletal: Cervical back: Neck supple. Right lower leg: No edema. Left lower leg: No edema. Neurological: Mental Status: She is alert. Assessment/Plan Problem List Items Addressed This Visit Allergic rhinitis due to pollen Symptoms controlled with medication and continue. Asthma, extrinsic, without status asthmaticus, mild intermittent, uncomplicated (CMS/HCC) - Primary Mild symptoms and continue breo. Use albuterol PRN. Insulin resistance Tolerating semaglutide and weight down 13 pounds. Obesity (BMI 30-39.9) Weight down 13 pounds. Discussed proper diet and regular aerobic exercise. Recommend Weight Watchers and need to limit calories and smaller portions. Need to increase activity and regular aerobic exercise several days a week for 30 minutes at a time. documented in this encounter [facility] 09-02-2021 Evaluation note Encounter Date Diagnosis Assessment Notes Aug, Retained tampon not found on examination (ICD-10 - T19.2XXA) tampon was not found on examination. Discussed findings with patient. Reassurance given that tampon may have fallen out during insertion last night [employer] Other 12-07-2021 Evaluation note* Encounter Date Diagnosis Assessment Notes Treatment Notes Treatment Clinical Notes Feb, Foot pain, right (ICD-10 - M79.671) Feb, Sprain of right foot, initial encounter (ICD-10 - S93.601A) Wear the Efrem wrap for comfort and compression. Follow-up with your family physician if no improvement in 2 to 3 days. Take ibuprofen, 600 mg with food up to 3 times a day for pain. Consider going to a specialty running store for fitting of a good shoe. [employer] Other Evaluation note* Diagnosis Asthma, extrinsic, without status asthmaticus, mild intermittent, uncomplicated (CMS/HCC)- Primary Seasonal allergic rhinitis due to pollen Obesity (BMI 30-39.9) Insulin resistance Other abnormal glucose Nausea Nausea alone documented in this encounter [facility]* Diagnosis Acute non-recurrent pansinusitis- Primary Rowena's disease (CMS/HCC) Chronic lymphocytic thyroiditis Gastroesophageal reflux disease without esophagitis Esophageal reflux Annual physical exam- Primary Routine general medical examination at a health care facility Insulin resistance Other abnormal glucose Rowena's disease (CMS/HCC) Chronic lymphocytic thyroiditis Metabolic syndrome Dysmetabolic Syndrome X Prediabetes Other abnormal glucose Morbid obesity due to excess calories (CMS/HCC) Gastro-esophageal reflux disease without esophagitis Body mass index (BMI) 38.0-38.9, adult Asthma, extrinsic, without status asthmaticus, mild intermittent, uncomplicated (CMS/HCC)- Primary Seasonal allergic rhinitis due to pollen Obesity (BMI 30-39.9) Insulin resistance Other abnormal glucose Nausea Nausea alone Pyogenic granuloma- Primary Pyogenic granuloma of skin and subcutaneous tissue Asthma, extrinsic, without status asthmaticus, mild intermittent, uncomplicated (CMS/HCC) documented in this encounter [facility]* Diagnosis Acute non-recurrent pansinusitis- Primary Rowena's disease (CMS/HCC) Chronic lymphocytic thyroiditis Gastroesophageal reflux disease without esophagitis Esophageal reflux Acute non-recurrent pansinusitis- Primary Annual physical exam- Primary Routine general medical examination at a health care facility Insulin resistance Other abnormal glucose Rowena's disease (CMS/HCC) Chronic lymphocytic thyroiditis Metabolic syndrome Dysmetabolic Syndrome X Prediabetes Other abnormal glucose Morbid obesity due to excess calories (CMS/HCC) Gastro-esophageal reflux disease without esophagitis Body mass index (BMI) 38.0-38.9, adult Asthma, extrinsic, without status asthmaticus, mild intermittent, uncomplicated (CMS/HCC)- Primary Seasonal allergic rhinitis due to pollen Obesity (BMI 30-39.9) Insulin resistance Other abnormal glucose Nausea Nausea alone Pyogenic granuloma- Primary Pyogenic granuloma of skin and subcutaneous tissue Asthma, extrinsic, without status asthmaticus, mild intermittent, uncomplicated (CMS/HCC) Pyogenic granuloma- Primary Pyogenic granuloma of skin and subcutaneous tissue Acute non-recurrent pansinusitis Prediabetes Other abnormal glucose [facility] Diagnosis Acute non-recurrent pansinusitis- Primary Rowena's disease (CMS/HCC) Chronic lymphocytic thyroiditis Gastroesophageal reflux disease without esophagitis Esophageal reflux Annual physical exam- Primary Routine general medical examination at a health care facility Insulin resistance Other abnormal glucose Rowena's disease (CMS/HCC) Chronic lymphocytic thyroiditis Metabolic syndrome Dysmetabolic Syndrome X Prediabetes Other abnormal glucose Morbid obesity due to excess calories (CMS/HCC) Gastro-esophageal reflux disease without esophagitis Body mass index (BMI) 38.0-38.9, adult Asthma, extrinsic, without status asthmaticus, mild intermittent, uncomplicated (CMS/HCC)- Primary Seasonal allergic rhinitis due to pollen Obesity (BMI 30-39.9) Insulin resistance Other abnormal glucose Nausea Nausea alone Pyogenic granuloma- Primary Pyogenic granuloma of skin and subcutaneous tissue Asthma, extrinsic, without status asthmaticus, mild intermittent, uncomplicated (CMS/HCC) Pyogenic granuloma- Primary Pyogenic granuloma of skin and subcutaneous tissue Acute non-recurrent pansinusitis Prediabetes Other abnormal glucose Asthma, extrinsic, without status asthmaticus, mild intermittent, uncomplicated (CMS/HCC)- Primary Pyogenic granuloma Pyogenic granuloma of skin and subcutaneous tissue Seasonal allergic rhinitis due to pollen Insulin resistance Other abnormal glucose Class 2 severe obesity due to excess calories with serious comorbidity and body mass index (BMI) of 36.0 to 36.9 in adult ([facility]) Breast cancer screening by mammogram [facility] N[facility]ative - Reported* Type Description Date Medical History Exercise-induced asthma Surgical History tonsillectomy Surgical History tubal ligation Surgical History deviated septum repair Surgical History D&C Surgical History breast biopsy Hospitalization History see above [employer] Other Summary Purpose Family History No Family History Records FoundNo Family History Records FoundNo Family History Records FoundNo Family History Records Found Advance Directives No Advanced Directives Records FoundNo Advanced Directives Records FoundNo Advanced Directives Records FoundNo Advanced Directives Records Found Additional Source Comments INFORMATION SOURCE (unrecogn ized section and content) DATE CREATED AUTHOR 03/01/2021 [facility] DATE CREATED AUTHOR AUTHOR'S ORGANIZ ATION 04/11/2022 [facility] DATE CREATED AUTHOR AUTHOR'S ORGANIZ ATION 07/13/2022 [facility] DATE CREATED AUTHOR AUTHOR'S ORGANIZ ATION 04/03/2024 [facility] EPIC REASON FOR VISIT (unrecogniz ed section and content) Reason Comments Follow-up 3m f/up Reason Comments Follow-up [facility] er f/up Reason Comments Hand Injury Growth on side of ri ght hand Reason Comments Follow-up 3m Nausea [employer] Care Teams (unrecognized sec tion and content) 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 Start Date End Date Jl Lockett MD [address] [place] [address] PCP - [employer] 02/15/23 Jl Lockett MD [address] [place] [address] PCP - General Family Medicine 04/04/23 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 Start Date End Date Jl Lockett MD [address] [place] [address] PCP - [employer] 02/15/23 Jl Lockett MD [address] [place] [phone] PCP - General Family Medicine 04/04/23 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 Start Date End Date Jl Lockett MD [address] [place] [phone] PCP - [employer] 02/15/23 Jl Lockett MD [address] [place] [phone] PCP - General [facility] Medicine 04/04/23 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 Start Date End Date Jl Lockett MD [address] [place] [phone] PCP - [employer] 02/15/23 Jl Lockett MD [address] [place] [phone] PCP - General Family Medicine 04/04/23 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 Start Date End Date Jl Lockett MD [address] [place] [phone] PCP - [employer] 02/15/23 Jl Lockett MD [address] [place] [phone] PCP - General Family Medicine 04/04/23 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 Start Date End Date Jl Lockett MD [address] [place] [phone] PCP - [employer] 02/15/23 Jl Lockett MD [address] [place] [phone] PCP [facility] 04/04/23 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 Start Date End Date Jl Lockett MD [address] [place] [phone] [facility] 02/15/23 Jl Lockett MD [address] [place] [phone] [facility] 04/04/23 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 This clinical summary was aggregated from multiple sources. Caution should be exercised in using it in the provision of clinical care. This summary normalizes information from multiple sources, and as a consequence, information in this document may materially change the coding, format and clinical context of patient data. In addition, data may be omitted in some cases. CLINICAL DECISIONS SHOULD BE BASED ON THE PRIMARY CLINICAL RECORDS. [facility] [employer] [facility]. provides no warranty or guarantee of the accuracy or completeness of information in this document.
[2024-06-07 06:14] VITALS: BP 152/105; PULSE 80; TEMP 36.7; O2SAT 98; BMI 36.6
--- NOTE | 2024-06-07 06:45 | ED_ITS ---
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 Pain associated with nausea. Did not vomit. No fever or dysuria. Describes passing orange blood stool. States pain improves some after BM but then returns. LMP normal 2 weeks ago. Not . States tubes tied. Related Data Home Medications ?Medication ?Instructions ?Recorded ?Confirmed fluticasone furoate 100 1 inh inhalation Q24H 03/05/24 06/07/24 mcg-vilanterol 25 mcg/dose inhalation powder (Breo Ellipta) levothyroxine 75 mcg tablet 75 mcg PO DAILY 03/05/24 06/07/24 albuterol sulfate 2.5 mg/3 mL mg 06/07/24 (0.083 %) solution for nebulization cetirizine 10 mg tablet (24Hour 10 mg PO DAILY PRN allergy symptoms 06/07/24 06/07/24 Allergy) esomeprazole magnesium 20 mg 20 mg PO DAILY 06/07/24 06/07/24 capsule,delayed release (Nexium) ondansetron 4 mg disintegrating mg 06/07/24 tablet semaglutide (weight loss) 1.7 0.25 mg subcut Q7D 06/07/24 06/07/24 mg/0.75 mL subcutaneous pen injector Allergies Allergy/AdvReac Type Severity Reaction Status Date / Time Latex, Natural Rubber Allergy Hives Verified 06/07/24 06:33 Review of Systems ROS Status of ROS 10 or more systems reviewed and unremark able except as noted in history and below PFSH PFSH Social History Little interest or pleasure in doing things: not at all Feeling down, depressed, or hopeless: not at all Exam Constitutional Vital Signs, click to edit/add: Last Vital Signs Temp 98.1 F 06/07/24 06:14 Pulse 80 06/07/24 06:14 Resp 20 06/07/24 06:14 BP 152/105 H 06/07/24 06:14 Pulse Ox 98 06/07/24 06:14 O2 Del Method Room Air 06/07/24 06:14 Common normals: no apparent distress, average body habitus, oriented x3, no limitations, healthy appearing, alert and well nourished [facility] Common normals: normocephalic and head/scalp atraumatic Eye Common normals: EOMs intact bilaterally and conjunctivae normal Respiratory Common normals: normal respiratory effort, no retractions, no use of accessory muscles and clear to auscultation bilaterally Cardio Common normals: regular rate, regular rhythm, S1 normal heart sound and S2 normal heart sound GI Common normals: Normal to inspection, nondistended, normoactive bowel sounds present, soft to palpation and non-tender Other: rectal empty vault. smear on finger tip minimal ? blood but difficult to tell Extremity Common normals: normal to inspection and full ROM Neuro Common normals: oriented x3, CN's II-XII intact bilaterally, moves all extremities and no focal motor deficits Psych Appearance: grossly normal Course Vital Signs Vital signs: Vital Signs Temperature 98.1 F 06/07/24 06:14 Pulse Rate 80 06/07/24 06:14 Respiratory Rate 20 06/07/24 06:14 Blood Pressure 152/105 H 06/07/24 06:14 Pulse Oximetry 98 06/07/24 06:14 Oxygen Delivery Method Room Air 06/07/24 06:14 Temperature 98.1 F 06/07/24 06:14 Pulse Rate 80 06/07/24 06:14 Respiratory Rate 20 06/07/24 06:14 Blood Pressure 152/105 H 06/07/24 06:14 Pulse Oximetry 98 06/07/24 06:14 Oxygen Delivery Method Room Air 06/07/24 06:14 MDM - Abdominal Pain MDM Narrative Medical decision making narrative: patient presents with abdominal pain and complaint of passing orange blood stool. abdominal exam neg. Rectal exam with empty vault. Labs and diagnostic studies ordered. care transferred to [facility] physician Discharge Plan Discharge Patient Disposition: Still a Patient
[2024-06-07 06:51] LABS: Basophils Percent Auto 0.4 % (0.2-2.0); Eosinophils Absolute Auto 0.1 10^3/uL (0.0-0.7); Eosinophils Percent Auto 0.9 % (0.9-7.0); Hematocrit 39.1 % (36.0-48.0); Hemoglobin 12.6 g/dL (12.0-16.0); Immature Granulocytes Abs Auto 0.01 10^3/uL (0.00-0.03); Immature Granulocytes Pct Auto 0.1 % (0.0-0.5); Lymphocytes Absolute Auto 1.9 10^3/uL (1.2-3.8); Lymphocytes Percent Auto 18.3 % (20.5-60.0); Mean Corpuscular HGB Conc 32.2 g/dL (29.9-35.2); Mean Corpuscular Hemoglobin 27.8 pg (26.7-34.0); Mean Corpuscular Volume 86.1 fL (81.0-99.0); Mean Platelet Volume 10.2 fL (9.5-13.5); Monocytes Absolute Auto 0.4 10^3/uL (0.3-0.8); Monocytes Percent Auto 4.2 % (1.7-12.0); Neutrophils Absolute Auto 7.8 10^3/uL (1.4-6.5); Neutrophils Percent Auto 76.1 % (43.0-75.0); Platelet Count 353 10^3/uL (150-450); Red Blood Count 4.54 10^6/uL (4.20-5.40); Red Cell Distribution Width 16.4 % (11.0-15.0); White Blood Count 10.3 10^3/uL (4.0-11.0)
[2024-06-07 06:56] LABS: Internal Control Within Normal Limits; Occult Blood Negative
[2024-06-07 07:33] LABS: HCG Qualitative Urine* NEGATIVE (NEGATIVE); Internal Control Within Normal Limits
[2024-06-07 07:34] LABS: Alanine Aminotransferase 19 U/L (14-59); Albumin Level 3.5 g/dL (3.4-5.0); Alkaline Phosphatase 100 U/L (46-116); Anion Gap 12.9; Aspartate Amino Transferase 19 U/L (15-37); BUN Creatinine Ratio 17.3; Bilirubin Total 0.2 mg/dL (0.2-1.0); Calcium 8.9 mg/dL (8.5-10.1); Carbon Dioxide 23.7 mmol/L (21.0-32.0); Chloride 105 mmol/L (98-107); Estimated GFR (African America >60 (>=60 mL/min/1.73m^2); Estimated GFR (Non-African Ame 58 (>=60 mL/min/1.73m^2); Globulin 3.5 g/dL; Glucose 109 mg/dL (74-106); Potassium 3.6 mmol/L (3.5-5.1); Sodium 138 mmol/L (136-145)
[2024-06-07] MEDS: ONDANSETRON PF 4 MG/2 ML VIAL IV ×2 (07:35→08:47)
[2024-06-07 07:36] LABS: Lactate/Lactic Acid 2.3 mmol/L (0.4-2.0)
[2024-06-07 07:36] LABS: Bilirubin Urine MODERATE (NEGATIVE); Blood Urine NEGATIVE (NEGATIVE); Clarity Urine CLEAR (CLEAR); Glucose Urine UA NEGATIVE (NEGATIVE); Ketones Urine 15 mg/dL (NEGATIVE); Leukocyte Esterase Urine NEGATIVE (NEGATIVE); Nitrite Urine POSITIVE (NEGATIVE); Protein Urine 30 mg/dL (NEG/TRACE); Specific Gravity Urine >=1.030 (1.005-1.025)
[2024-06-07 07:37] LABS: Color Urine BROWN (YELLOW)
[2024-06-07 07:44] LABS: Bacteria Urine MODERATE #/HPF (NONE SEEN); Cast Seen? SEEN #/LPF (NONE SEEN); Crystals Seen? None Seen #/HPF (None Seen); Hyaline Casts Urine RARE; Mucus Urine MODERATE (NONE SEEN); RBC Urine 0-2 #/HPF (0-2); Squamous Epithelial Cell Urine FEW #/LPF (NONE/RARE); Urine Culture Indicated YES-FRMC; WBC Urine 0-2 #/HPF (NONE SEEN)
[2024-06-07 08:16] VITALS: BP 110/83; PULSE 106; O2SAT 97
--- NOTE | 2024-06-07 08:46 | ED_ITS ---
HPI HPI - General Adult General Chief complaint: Abdominal Pain Stated complaint: abd pain Time Seen by Provider: 06/07/24 06:37 Source: patient Mode of arrival: walk-in History of Present Illness HPI narrative: 43-year-old female presents to the emergency department and was initially seen by Dr. Hernandez. Please see his full history and physical exam. Related Data Home Medications ?Medication ?Instructions ?Recorded ?Confirmed fluticasone furoate 100 1 inh inhalation Q24H 03/05/24 06/07/24 mcg-vilanterol 25 mcg/dose inhalation powder (Breo Ellipta) levothyroxine 75 mcg tablet 75 mcg PO DAILY 03/05/24 06/07/24 albuterol sulfate 2.5 mg/3 mL mg 06/07/24 (0.083 %) solution for nebulization cetirizine 10 mg tablet (24Hour 10 mg PO DAILY PRN allergy symptoms 06/07/24 06/07/24 Allergy) esomeprazole magnesium 20 mg 20 mg PO DAILY 06/07/24 06/07/24 capsule,delayed release (Nexium) ondansetron 4 mg disintegrating mg 06/07/24 tablet semaglutide (weight loss) 1.7 0.25 mg subcut Q7D 06/07/24 06/07/24 mg/0.75 mL subcutaneous pen injector Previous Rx's ?Medication ?Instructions ?Recorded ciprofloxacin HCl 500 mg tablet 500 mg PO Q12H #20 tabs 06/07/24 (Cipro) hydrocodone 5 mg-acetaminophen 325 1 tab PO Q6H PRN pain 5 days #20 06/07/24 mg tablet tabs metronidazole 500 mg tablet 500 mg PO TID #30 tabs 06/07/24 ondansetron 4 mg disintegrating 4 mg PO Q6H PRN nausea and 06/07/24 tablet vomiting #20 tabs Allergies Allergy/AdvReac Type Severity Reaction Status Date / Time Latex, Natural Rubber Allergy Hives Verified 06/07/24 06:33 Opioid HPI Opioid Management Most Recent Opioid Data: Last Pain Scale 7 06/07/24 08:15 06/07/24 PFSH PFSH Social History Little interest or pleasure in doing things: not at all Feeling down, depressed, or hopeless: not at all Exam Constitutional Vital Signs, click to edit/add: Last Vital Signs Temp 98.1 F 06/07/24 06:14 Pulse 106 H 06/07/24 08:16 Resp 18 06/07/24 08:16 BP 110/83 06/07/24 08:16 Pulse Ox 97 06/07/24 08:16 O2 Del Method Room Air 06/07/24 06:14 Course Vital Signs Vital signs: Vital Signs Temperature 98.1 F 06/07/24 06:14 Pulse Rate 80 06/07/24 06:14 Respiratory Rate 20 06/07/24 06:14 Blood Pressure 152/105 H 06/07/24 06:14 Pulse Oximetry 98 06/07/24 06:14 Oxygen Delivery Method Room Air 06/07/24 06:14 Temperature 98.1 F 06/07/24 06:14 Pulse Rate 106 H 06/07/24 08:16 Respiratory Rate 18 06/07/24 08:16 Blood Pressure 110/83 06/07/24 08:16 Pulse Oximetry 97 06/07/24 08:16 Oxygen Delivery Method Room Air 06/07/24 06:14 Medical Decision Making MDM Narrative Medical decision making narrative: CAT scan per radiologist is consistent with colitis. Blood work is nonspecific, WBC is normal. She is not . She is being treated with Cipro and Flagyl as well as [place] and Zofran. Follow-up with her PCP. Admission to the hospital is not indicated. Treatment diagnosis and follow-up were discussed with the patient. Differential Diagnosis Differential Diagnosis: , colitis, diverticulitis, UTI, pyelonephritis Lab Data Lab results reviewed: Yes I reviewed the patient's lab results Labs: Lab Results 06/07/24 06/07/24 06/07/24 Range/Units 06:09 06:30 06:43 WBC 10.3 (4.0-11.0) 10^3/uL RBC 4.54 (4.20-5.40) 10^6/uL Hgb 12.6 (12.0-16.0) g/dL Hct 39.1 (36.0-48.0) % MCV 86.1 (81.0-99.0) fL MCH 27.8 (26.7-34.0) pg MCHC 32.2 (29.9-35.2) g/dL RDW 16.4 H (11.0-15.0) % Plt Count 353 (150-450) 10^3/uL MPV 10.2 (9.5-13.5) fL Neut % (Auto) 76.1 H (43.0-75.0) % Lymph % (Auto) 18.3 L (20.5-60.0) % [place] % (Auto) 4.2 (1.7-12.0) % Eos % (Auto) 0.9 (0.9-7.0) % Baso % (Auto) 0.4 (0.2-2.0) % Neut # (Auto) 7.8 H (1.4-6.5) 10^3/uL Lymph # (Auto) 1.9 (1.2-3.8) 10^3/uL [place] # (Auto) 0.4 (0.3-0.8) 10^3/uL Eos # (Auto) 0.1 (0.0-0.7) 10^3/uL Baso # (Auto) 0.0 (0.0-0.1) 10^3/uL Abs Immat Gran (auto) 0.01 (0.00-0.03) 10^3/uL Imm/Tot Granulo (auto) 0.1 (0.0-0.5) % Sodium 138 (136-145) mmol/L Potassium 3.6 (3.5-5.1) mmol/L Chloride 105 (98-107) mmol/L Carbon Dioxide 23.7 (21.0-32.0) mmol/L Anion Gap 12.9 BUN 18.0 (7.0-18.0) mg/dL Creatinine 1.04 H (0.55-1.02) mg/dL Est GFR ( Amer) >60 (>=60 mL/min/1.73m^2) Est GFR (Non-Af Amer) 58 L (>=60 mL/min/1.73m^2) BUN/Creatinine Ratio 17.3 Glucose 109 H (74-106) mg/dL Lactate 2.3 H* (0.4-2.0) mmol/L Calcium 8.9 (8.5-10.1) mg/dL Total Bilirubin 0.2 (0.2-1.0) mg/dL AST 19 (15-37) U/L ALT 19 (14-59) U/L Alkaline Phosphatase 100 (46-116) U/L Total Protein 7.0 (6.4-8.2) g/dL Albumin 3.5 (3.4-5.0) g/dL Globulin 3.5 g/dL Albumin/Globulin Ratio 1.0 Lipase 48.0 (16.0-77.0) U/L Urine Color Brown A (YELLOW) Urine Clarity Clear (CLEAR) Urine pH 5.0 (5.0-9.0) Ur Specific [place] >=1.030 A (1.005-1.025) Urine Protein 30 A (NEG/TRACE) mg/dL Urine Glucose (UA) Negative (NEGATIVE) mg/dL Urine Ketones 15 A (NEGATIVE) mg/dL Urine Occult Blood Negative (NEGATIVE) Urine Nitrite Positive A (NEGATIVE) Urine Bilirubin Moderate A (NEGATIVE) Urine Urobilinogen 1.0 (0.2-1.0) EU/dL Ur Leukocyte Esterase Negative (NEGATIVE) Urine RBC 0-2 (0-2) #/HPF Urine WBC 0-2 A (NONE SEEN) #/HPF Ur Squamous Epith Cells Few A (NONE/RARE) #/LPF Urine Crystals None seen (None Seen) #/HPF Urine Bacteria Moderate A (NONE SEEN) #/HPF Urine Casts Seen A (NONE SEEN) #/LPF Hyaline Casts Rare Urine Mucus Moderate A (NONE SEEN) Ur Culture Indicated? Yes-[facility] [place] Urine HCG, Qual Negative (NEGATIVE) Stool Occult Blood Negative Imaging Data CT scan - abdomen: Radiologist's impression: Mild colitis involving the transverse colon, left colon, and proximal sigmoid: Discharge Plan Discharge Chief Complaint: Abdominal Pain Clinical Impression: Colitis Patient Disposition: Home, Self-Care Time of Disposition Decision: 08:43 Condition: Good Mode of Transportation: Private Vehicle Prescriptions / Home Meds: New hydrocodone-acetaminophen 5-325 mg tablet 1 tab PO Q6H PRN (Reason: pain) 5 Days Qty: 20 0RF ciprofloxacin HCl [Cipro] 500 mg tablet 500 mg PO Q12H Qty: 20 0RF metronidazole 500 mg tablet 500 mg PO TID Qty: 30 0RF ondansetron 4 mg tablet,disintegrating 4 mg PO Q6H PRN (Reason: nausea and vomiting) Qty: 20 0RF No Action fluticasone furoate-vilanterol [Breo Ellipta] 100-25 mcg/dose blister with device 1 inh INHALATION Q24H levothyroxine 75 mcg tablet 75 mcg PO DAILY albuterol sulfate 2.5 mg /3 mL (0.083 %) solution for nebulization ondansetron 4 mg tablet,disintegrating esomeprazole magnesium [Nexium] 20 mg capsule,delayed release(DR/EC) 20 mg PO DAILY cetirizine [24Hour Allergy] 10 mg tablet 10 mg PO DAILY PRN (Reason: allergy symptoms) semaglutide (weight loss) 1.7 mg/0.75 mL pen injector 0.25 mg subcut Q7D Print Language: Georgian Instructions: Colitis (ED) Referrals: Jl Bae MD [Primary Care Provider] - 1 week
[2024-06-07] MEDS: METRONIDAZOLE 250 MG TABLET 500 MG PO (08:48)
[2024-06-07] MEDS: CIPROFLOXACIN HCL 500 MG TABLET PO (08:49)
[2024-06-07] MEDS: KETOROLAC TROMETHAMINE 30 MG/ML VIAL IVP (08:55)
== END 2024-06-07 09:06 | disposition home or self-care (01) ==
PROVIDERS: Internal Medicine; Emergency Provider Emergency Medicine; PCP Family Medicine
DX: K52.9 Noninfective gastroenteritis and colitis, unspecified (principal); R11.0 Nausea
CPT/HCPCS: 36415; 74177; 80053; 81001; 83605; 83690; 84703; 85025; 87086; 87150; 87186; 96374; 96375; 96376; 99285; G0328; J1885; J2405; Q9967

== ENCOUNTER 2025-03-10 10:13 | Outpatient (OUT) | payer OTHER, SELFPAY ==
--- OUTSIDE RECORDS SUMMARY | 2025-02-24 13:08 | XMS_ITS | Continuity of Care Document ---
Author Organization [facility] Address [address] [place] [address] Phone Care Team Providers Care Casting House Worker Name Role Phone Pati Jones APRN Attending Provider Jl Bae MD Primary Care Provider Care Teams Patient Care Team Team Status: Active Member Role/Relationship Status Dates Jl Bae MD Primary Care Provider Active Visit Care Team Team Status: Inactive Member Role/Relationship Status Dates NANNETTE Solano RN CASH MANAGER-C Attending Provider Active Start: February End: February 24, 2025[facility] Samra Bae Care ProviderActiveStart: February 24, 2025 End: February 24, 2025 Chief Complaint and Reason for Visit Chief Complaint Admit Date possible mono, son tested positive Decem loc 2024 5:23pm Allergies, Adverse Reactions, Alerts Allergen Type Severity Reaction Last Updated Verified Status latex Allergy Unknown hives February 24, 2025 5:24pm Yes Active shellfish derived Allergy Unknown anaphylaxis Decemb er 2024 5:24pm Yes Active Social History Smoking Status Status Start Date End Date Date of Observa tion Smokes tobacco daily (finding) September 02, 2021 9:46am Observation Status Observation Response Date of Response Legal Sex Female (finding) Sex Assigned At BirthFemaleJuly 1980 Family History Relationship Condition Age at Onset Recorded Date/T kasia brother Unknown family memberDeceasedUnknownmotherDeceasedUnknownMalignant neoplasm of breast UnknownMalignant neoplasmUnknown Medications Medication Status Dose Units Route Directions Qty Days Refills S tart Date Stop Date End Date Reason(s) Instructions Adherence Fluticasone Furoate-Vilanter ol (Breo Ellipta) 100-25 mcg/dose blister with device Active 1 INH INHALATION Maribell ly 60 5October 2024 11:00pmComplies with drug therapyOndansetron 4 mg tablet,yhtudxpkfboyilKcpnhg2WRZXWrfdv 6 hours as needed for nausea and vomiting 302November 2024 12:00amComplies with drug therapyAlbuterol Sulfate 90 mcg/actuation HFA aerosol inhalerActiveINHALATIONDe2024 12:00am Complies with drug therapyEsomeprazole Magnesium (Nexium) 20 mg capsule,delayed release(DR/EC)Cvlhot92TKCWXpokzMvohwjik 10th, 2025 12:00amComplies with drug therapyCetirizine (Zyrtec) 10 mg scogmzhMqdnje68MFJYUccgh as neededDe2024 12:00amComplies with drug therapySemaglutide 0.25 mg or 0.5 mg (2 mg/3 mL) pen injectorActive0.25MGSUBCUTevery weekDe2024 12:00amfor 4 weeksComplies with drug therapy Procedures Procedure Date Performed Status Mononucleosis (POC) February 24, 2025 complete d Relevant Diagnostic Tests and/or Laboratory Data Laboratory Results Test Collection Date/Time Result Date/Time Result Interpretation Reference Range Result Comment Performing Site POC SARS CoV-2 Antigen February 24, 2025 5:25p m February 24, 2025 6:04pm Negative Influenza Type A (Rapid)February 24, 2025 5:25pmDecemb2024 6:04pm NegativeInfluenza Type B (Rapid)February 24, 2025 5:25pmDece2024 6:04pmNegative Microbiology Results Procedure Source Result Collection Date/Time Result Date/Time Result Comment Performing Site Mononucleosis (POC) Finger,Left Middle, Other February 24, 2025 5:25pmDe2024 6:03pm Vital Signs Vital Reading Result Reference Range Collection Date/Time Height 62 [in_i] February 24, 2025 5:79dbJsxfpo74.44 kgFebruary 24, 2025 5:29pmBody Xlvgzlfakyu33 [degF]97.6-99.0February 24, 2025 5:29pmHeart Rate82 /bds74-518 February 24, 2025 5:29pmRespiratory rate18 /bez55-18IewknufvFebruary 24, 2025 5:29pm Oxygen saturation by Pulse caztuvmf66 %95-100February 24, 2025 5:29pmBP Zogvqtsc073 mm[Hg]100-140February 24, 2025 5:29pmBP Rvdaazxyc33 mm[Hg]60-100 February 24, 2025 5:29pmBMI (Body Mass Index)34.4 kg/n3QjzuxnptFebruary 24, 2025 5:29pm Advance Directives Advance Directive Response Recorded Date/ Time Advance Directives No February 2:24pm Insurance Providers Guarantor Kaylin Gandhi Address [address] [place] [address]Myrtodx Info.Home Phone: Coverage Status Update:2025 Payer Group Member ID Coverage Type Subscriber Relationship to Subscriber Effective Date Expiration Date Moriah RAPP Id: [id number] S Perkins Id: [id number] [address] [address] Home Phone: Email: [email or web address] Sa[facility] Id: [id number] S Perkins Id: [id number] [address] [address] Home Phone: Email: [email or web address] Claims Id: [id number] S Perkins Id: [id number] [address] [address] Home Phone: Email: [email or web address] Encounters Encounter Location(s) Arrival/Admit Date Discharge/Departure Date Discharge/Departure Disposition Provider(s) Departed Physician/ Provider Office Visit -[facility] Jasvir February 24, 2025 5:23pm February 24, 2025 6:08pm Discharged to home care or self care (routine discharge) Pati Jones , CARRIAGE FEEDER
--- OUTSIDE RECORDS SUMMARY | 2025-03-10 10:16 | XMS_ITS | Clinical Summary ---
Author Organization [facility] Address [address], [address] [place] [address] Care Team Providers Care Therapeutic Recreation Assistant Name Role Phone House DO Torres Charles P Primary Care Provider + Allergies Active AllergyReactionsCriticalityNoted AtytNknlbscsGghxrUionJtg11/04/2022 Shellfish Protein-Containing Drug RvazidriXmfluhfevdnGefp59/04/2022 Medications MedicationSigDispense QuantityRefillsLast FilledStart DateEnd DateStatus dextromethorphan-guaiFENesin (ROBITUSSIN-DM) 10-100 MG/5ML syrup Take 10 mLs by mouth every 4 hours as needed for Cough 30 mL ctive Additional Information Patient not taking.Reported on 10/02/2023 ALPRAZolam (XANAX) 0.25 MG tablet take 1 tablet by mouth every evening if needed for anxiety OR SLEEP03/27/2022 Active levothyroxine (SYNTHROID) 75 MCG tablet take 1 tablet by mouth once daily03/29/2022ctive esomeprazole Magnesium (NEXIUM) 20 MG PACK Take 1 packet by mouth dailyActive Fluticasone Furoate-Vilanterol (BREO ELLIPTA) 100-25 MCG/ACT AEPB Indications:Moderate persistent asthma with status asthmaticusOne inhalation (fluticasone furoate 100 mcg/vilanterol 25 mcg ) once daily 1 each ctive cetirizine (ZYRTEC) 10 MG tablet Take 1 tablet by mouth dailyActive albuterol (PROVENTIL) (2.5 MG/3ML) 0.083% nebulizer solution Indications:Moderate persistent asthma with status asthmaticusTake 3 mLs by nebulization every 6 hours as needed for Wheezing or Shortness of Breath 120 each ctive Additional Information Patient not taking.Reported on 10/02/2023 Spacer/Aero-H[place]AEROCHAMBER MV[place] [facility] [place]ications:Moderate persistent asthma with status asthmaticus1 each by Does not apply route 4 times daily 1 each ctive albuterol sulfate HFA (PROVENTIL;VENTOLIN;PROAIR) 108 (90 Base) MCG/ACT inhaler Indications:Moderate persistent asthma with status asthmaticusINHALE 2 PUFFS BY MOUTH EVERY 6 HOURS IF NEEDED 8.5 g 5Active Active Problems ProblemNoted DateDiagnosed DefqAxvftq65/10/0848Dbqbumywmhg24/09/2022inus pexwaerejxw81/03/2022tatus zgfpttkfdci16/01/2022 Family History Medical HistoryRelationNameCommentsCancerFatherlymphomaHypertensionFather DiabetesMaternal AuntDiabetesMaternal GrandmotherCancerMotherbreastDiabetes Paternal GrandmotherRelationNameStatusCommentsFatherMaternal AuntMaternal GrandmotherMotherPaternal Grandmother Social History Tobacco UseTypesPacks/DayYears UsedDateSmoking Tobacco: FormerCigarettes Smokeless Tobacco: Never Tobacco Cessation:Counseling Given: Not Answered Alcohol UseStandard Drinks/WeekCommentsYes0 (1 standard drink = 0.6 oz pure alcohol)sociallyCommentsUnknownSex and Gender InformationValueDate RecordedSex Assigned at BirthNot on fileLegal KanUxfaol45/30/2022 2:08 PM EST Gender IdentityNot on fileSexual OrientationNot on file Last Filed Vital Signs Vital SignReadingTime TakenCommentsBlood Knbqsdqy413/8407 2:56 PM EDT Urhdf049510/02/2023 2:56 PM VRFXwubsuvclko25.3 ??C (97.3 ??F)10/02/2023 2:56 PM EDTRespiratory Vpxi065410/02/2023 2:56 PM EDTOxygen Cabfplhsod77%10/02/2023 2:56 PM EDTInhaled Oxygen Concentration--Ioybsy607.2 kg (221 lb)10/02/2023 2:56 PM XXMPflvef474.5 cm (5' 2 )10/02/2023 2:56 PM EDTBody Mass Index40.42010/02/2023 2:56 PM EDT Plan of Treatment DateTypeDepartmentCare Team (Latest Contact Info)Ccfhcafslwx35/19/2026 2:00 PM ESTOffice Visit [facility] [address] [place] [address] Christopher Dickerson, DO [address] [facility] [address] [place] [address] 1 YEAR FOLLOW UP ASTHMAHealth MaintenanceDue DateLast DoneCommentsDepression Lxokqa1010/01/1993Varicella vaccine (1 of 2 - 13+ 2-dose series)1994HIV rqysft9410/01/1996Hepatitis C wjhjjd0010/02/1999DTaP/Tdap/Td vaccine (1 - Tdap) 2000Hepatitis B vaccine (1 of 3 - 19+ 3-dose series)2000Pneumococcal 0-49 years Vaccine (1 of 2 - PCV)2000Pap smear2002Cervical cancer flonbz8910/02/2011HPV (without or with Pap)10/02/2011reast cancer screen 10/01/20212701Pzuwjn18/17/2022Flu vaccine (#1)10/16/2024OVID-19 Vaccine ( season)2024HPV vaccine (No Doses Required)CompletedHepatitis A vaccine Aged OutNo longer eligible based on patient's age to complete this topicHib vaccineAged OutNo longer eligible based on patient's age to complete this topic Meningococcal (ACWY) vaccineAged OutNo longer eligible based on patient's age to complete this topicMeningococcal B vaccineAged OutNo longer eligible based on patient's age to complete this topicPolio vaccineAged OutNo longer eligible based on patient's age to complete this topic Insurance Advance Directives * Full Code (Latest Code Status on File) Date ActivatedDate ZvzqgtabdidAlkuosbc46/1/2022 7:57 PM02/25/2022 8:21 PM NameRelationshipHealthcare Agent RelationshipCommunicationDustin Aldair Primary Decision Maker* Care Teams Team MemberRelationshipSpecialtyStart DateEnd Date Lam Palmer Sr., DO [address] [place] [address] PCP - GeneralFamily Mmwzbzlc37/2/22
--- OUTSIDE RECORDS SUMMARY | 2025-03-10 10:16 | XMS_ITS | Clinical Summary ---
Author Organization [facility] Healthcare Address [address] [place] [address] Care Team Providers [employer] Name Role Phone Jl Bae MD Primary Care Provider [phone] Allergies Active AllergyReactionsCriticalityNoted RewdDraukpgoHaokiRewdAfz15/04/2022 Shellfish Protein-Containing Drug IpltwyylErdkeldtiiqXsef06/04/2022 Medications MedicationSigDispense QuantityRefillsLast FilledStart DateEnd DateStatus fluticasone (Flonase) 50 MCG/ACT nasal spray Administer 2 sprays into each nostril in the morning. Shake gently. Before first use, prime pump. After use, clean tip and replace cap..Active esomeprazole (NexIUM) [address] capsule Take 20 mg by mouth in the morning. Take before meals. Do not open capsule.. Active cetirizine (ZyrTEC) 10 MG tablet Take 10 mg by mouth in the morning.Active Semaglutide,0.25 or 0.5MG/DOS, (Ozempic, 0.25 or 0.5 MG/DOSE,) 2 MG/3ML solution pen-injector Indications:Metabolic syndromeInject 0.5 mg under the skin every 7 (seven) days 3 mL ctive albuterol (2.5 MG/3ML) 0.083% nebulizer solution Indications:Asthma, extrinsic, without status asthmaticus, mild intermittent, uncomplicated (HCC)Take 3 mL (2.5 mg) by nebulization every 4 (four) hours if needed for wheezing or shortness of breath 150 mL ctive promethazine (Phenergan) 25 MG tablet Indications:Acute non-recurrent pansinusitisTake 1 tablet (25 mg) by mouth every 6 (six) hours if needed for nausea or vomiting 30 tablet 5Active Fluticasone Furoate-Vilanterol (Breo Ellipta) 100-25 MCG/ACT aerosol powder Indications:Asthma, extrinsic, without status asthmaticus, mild intermittent, uncomplicated (HCC)Inhale 25 mcg Daily INHALE 1 PUFF BY MOUTH DAILY 60 each 5Active levothyroxine (Synthroid, Levoxyl) 75 MCG tablet Indications:Rowena's diseaseTake 1 tablet (75 mcg) by mouth in the morning. Take before meals. 30 tablet 110506Active albuterol HFA 90 mcg/act inhaler Indications:Asthma, extrinsic, without status asthmaticus, mild intermittent, uncomplicated (HCC)Inhale 2 puffs every 4 (four) hours if needed for wheezing 18 g 5Active ciprofloxacin (Cipro) 500 MG tablet Take 500 mg by mouth every 12 (twelve) hours5Active metroNIDAZOLE (Flagyl) 500 MG tablet Take 500 mg by mouth in the morning and 500 mg in the evening and 500 mg before bedtime.5Active ondansetron ODT (Zofran-ODT) 4 MG disintegrating tablet Indications:NauseaTake 1 tablet (4 mg) by mouth every 6 (six) hours if needed for nausea or vomiting 30 tablet 5Active Active Problems ProblemNoted DateDiagnosed DateUTI (urinary tract infection)06/16/2024 Assessment & Plan (06/16/2024 4:39 PM EDT): Urine culture from 06/07/24 + ecoli Will recheck urine/culture Idodmwa3106/16/2024 Assessment & Plan (06/16/2024 4:40 PM EDT): [facility] ER notes, chart reviewed Finish atb, discussed dx etc, questions answered Left VM for [facility] med records at 16:40pm regarding CT scan report needing to be faxed Zybjpsuwaxo91/01/2025 Assessment & Plan (06/16/2024 4:41 PM EDT): Notes her smart watch can have HR 150's Usually more notably when sick, wants to monitor at this time Has had work up in past with tilt table, holter etc Pyogenic ahmcfvfrg86/25/2024 Assessment & Plan (03/31/2024 4:08 PM EST): Lesion smaller and repeat cryo. Used liquid nitrogen to perform 3 freeze thaw cycles and patient tolerated well. Warned may form blister and likely will take multiple treatments. Assessment & Plan (03/19/2024 12:23 PM EST): Lesion smaller and will return for repeat cryo. Assessment & Plan (02/10/2024 1:54 PM EST): Discussed benign nature of lesion and treatment options. Used liquid nitrogen to perform 3 freeze thaw cycles and patient tolerated well. Warned may form blister and likely will take multiple treatments. Recommend schedule with dermatology and if doesn't respond to treatment will need excision. Insulin jgwcnollpm16/10/2024 Assessment & Plan (03/31/2024 4:07 PM EST): Tolerating semaglutide and weight down 19 pounds. Increase dose when due for fill. Assessment & Plan (12/26/2023 3:26 PM EDT): Tolerating semaglutide and weight down 13 pounds. Annual physical exam09/25/2023 Assessment & Plan (09/25/2023 1:58 PM EDT): Due for labs. Discussed proper diet and regular aerobic exercise. Need aerobic exercise 5-6 days a week for 30 minutes at a time. Smaller portions and limit total calories. Colonoscopy after age 45. Tetanus every 10 years. Advised not to smoke. Discussed daily Aspirin therapy. Metabolic keyoteay89/10/2024Class 2 severe obesity due to excess calories with serious comorbidity and body mass index (BMI) of36.0 to 36.9 in adult09/25/2023 Assessment & Plan (06/16/2024 7:24 AM EDT): Discussed with patient their BMI (actual, verses recommended). We have also discussed lifestyle modifications: attempts to perform physical activity as chronic conditions allow, also to monitor dietary intake: increasing protein/fruits/veggies and lowering carb intake (unless contraindicated). Limit sodas, juices, and sugary drinks. Assessment & Plan (03/31/2024 4:07 PM EST): Weight loss indicated Assessment & Plan (03/19/2024 12:24 PM EST): Weight loss indicated Assessment & Plan (12/26/2023 3:26 PM EDT): Weight down 13 pounds. Discussed proper diet and regular aerobic exercise. Recommend Weight Watchers and need to limit calories and smaller portions. Need to increase activity and regular aerobic exercise several days a week for 30 minutes at a time. Assessment & Plan (09/25/2023 1:59 PM EDT): Continues to gain weight and try ozempic. Allergic rhinitis due to adhlyd5904/04/2023 Assessment & Plan (03/31/2024 4:07 PM EST): Symptoms controlled with medication and continue. Assessment & Plan (12/26/2023 3:26 PM EDT): Symptoms controlled with medication and continue. Gastroesophageal reflux vduhowk9204/04/2023 Assessment & Plan (04/04/2023 4:21 PM EST): Symptoms controlled with nexium and continue. Rowena's auggwgw0604/04/2023 Assessment & Plan (04/04/2023 4:21 PM EST): No signs of low thyroid and repeat labs. Ybjatodixrm62/18/2024 Assessment & Plan (03/19/2024 12:24 PM EST): Will monitor labs Asthma, extrinsic, without status asthmaticus, mild intermittent, uncomplicated 04/04/2023 Assessment & Plan (03/31/2024 4:07 PM EST): Mild symptoms and continue breo. Use albuterol PRN. Assessment & Plan (12/26/2023 3:26 PM EDT): Mild symptoms and continue breo. Use albuterol PRN. Nielszhou tcowxn5504/04/2023 Resolved Problems ProblemNoted DateDiagnosed DateResolved DateAcute non-recurrent pansinusitis 401/ Assessment & Plan (03/19/2024 12:22 PM EST): Take antibiotics BID for 10 days. Use [...] 5-7 days and if no better or worsecall for re-evaluation. Assessment & Plan (05/09/2023 3:55 PM EST): Take antibiotics BID for 10 days. Use [...] 5-7 days and if no better or worsecall for re-evaluation. Assessment & Plan (04/04/2023 4:21 PM EST): Take antibiotics BID for 10 days. Use [...] 5-7 days and if no better or worsecall for re-evaluation. Family History Medical HistoryRelationNameCommentsCancerFatherHypertensionFatherCancerMaternal GrandfatherCancerMaternal GrandmotherCancerMotherRelationNameStatusComments FatherMaternal GrandfatherMaternal GrandmotherMother Social History Tobacco UseTypesPacks/DayYears UsedDateSmoking Tobacco: NeverSmokeless Tobacco: Never Tobacco Cessation:Counseling Given: Not Answered B1300 Health LiteracyAnswerDate RecordedHow often do you need to have someone help you when you read instructions, pamphlets, or other written material from your doctor or pharmacy?Never09/25/2023Social Connection and Isolation Panel AnswerDate RecordedIn a typical week, how many times do you talk on the phone with family, friends, or neighbors?More than three times a week09/25/2023How often do you get together with friends or relatives?Once a week09/25/2023How often do you attend latter-day or congregational services?Patient rvxbrpyx98/10/2024o you belong to any clubs or organizations such as latter-day groups, unions, fraternal or athletic groups, or school groups?No09/25/2023How often do you attend meetings of the clubs or organizations you belong to?Never09/25/2023re you , , , , never , or living with a partner?Nuxhnhy3209/25/2023UDIT-CAnswerDate RecordedQ1: How often do you have a drink containing alcohol?2-4 times a month09/25/2023Q2: How many drinks containing alcohol do you have on a typical day when you are drinking?3 or 4 09/25/2023Q3: How often do you have six or more drinks on one occasion?Never 09/25/2023Overall Financial Resource Strain (CARDIA)AnswerDate RecordedHow hard is it for you to pay for the very basics like food, housing, medical care, and heating?Patient bbiwbqrd04/10/2024HQ-2AnswerDate RecordedPatient Health Questionnaire-2 Xzazw890Fin[facility] [place] [facility] - Occupational Stress QuestionnaireAnswerDate RecordedDo you feel stress - tense, restless, nervous, or anxious, or unable to sleep at night because yourmind is troubled all the time - these days?Not at all09/25/2023Exercise Vital SignAnswer Date RecordedOn average, how many days per week do you engage in moderate to strenuous exercise (like a brisk walk)?3 days09/25/2023On average, how many minutes do you engage in exercise at this level?40 min09/25/2023Hunger Vital SignAnswerDate RecordedWithin the past 12 months, you worried that your food would run out before you got the money to buymore.Never true09/25/2023Within the past 12 months, the food you bought just didn't last and you didn't have money to get more.Never true09/25/2023RAPARE - TransportationAnswerDate RecordedIn the past 12 months, has lack of transportation kept you from medical appointments or from getting medications?No09/25/2023In the past 12 months, has lack of transportation kept you from meetings, work, or from getting things needed for daily living?No09/25/2023Housing Stability Vital SignAnswerDate RecordedIn the last 12 months, was there a time when you were not able to pay the mortgage or rent on time?No09/25/2023Number of Times Moved in the Last Year Not on file09/25/2023t any time in the past 12 months, were you homeless or living in a alf (including now)?No09/25/2023CommentsUnknownSex and Gender InformationValueDate RecordedSex Assigned at BirthNot on fileLegal Sex Dqjqas4205/30/2022 6:37 PM EDTGender IdentityNot on fileSexual OrientationNot on file Last Filed Vital Signs Vital SignReadingTime TakenCommentsBlood Oknyyehg409/7804 3:35 PM EDT Sdfcs1168 3:35 PM AZMLndzueuxqpv00.8 ??C (98.2 ??F)06/16/2024 3:35 PM EDTRespiratory Epil5399 3:35 PM EDTOxygen Llfahelmst61%06/16/2024 3:35 PM EDTInhaled Oxygen Concentration--Hdtagp46.8 kg (195 lb 12.8 oz)06/16/2024 3:35 PM AOAYzkzcp784.5 cm (5' 2 )03/31/2024 3:44 PM ESTBody Mass Index35.81 03/31/2024 3:44 PM EST Plan of Treatment Not on file Insurance Care Teams Team MemberRelationshipSpecialtyStart DateEnd Date lJ Bae MD [facility]
--- NOTE | 2025-03-10 10:44 | MM_ITS ---
Patient Name: GINGER ARANDA MR#: [id number] : 1980 Exam Date: 03/10/2025 Ordering Doctor: DR ALEXANDER LOCKETT . RADIOLOGY REPORT PROCEDURE: MM TOMOSYNTHESIS SCREENING BI COMPARISON: None. INDICATIONS: Screening Calculator Name NCI Breast Cancer Risk Assessment Tool 5 Year Breast Cancer Risk 1.50% Lifetime Breast Cancer Risk 19.40% Personal Breast Cancer No Personal Ovarian Cancer No Treatments None Family Cancers Mother with breast cancer at age 42; Aunt-maternal with breast cancer at age 50. LOCATION: [facility] BREAST COMPOSITION: The breasts are heterogeneously dense, which may obscure small masses. FINDINGS: DIAGNOSTIC CATEGORY 1--NEGATIVE. RIGHT BREAST: No significant suspicious finding. LEFT BREAST: No significant suspicious finding. RECOMMENDATIONS: ROUTINE MAMMOGRAM AND CLINICAL EVALUATION IN 12 MONTHS. Dictated by: Sonny Renee MD on 03/10/2025 at 13:04 Approved by: Sonny Renee MD on 03/10/2025 at 13:06
== END 2025-03-10 10:14 | disposition home or self-care (01) ==
LOC: MAMMO 10:13
PROVIDERS: PCP Family Medicine; Visit Provider Family Medicine
DX: Z12.31 Encounter for screening mammogram for malignant neoplasm of breast (principal); Z80.3 Family history of malignant neoplasm of breast
CPT/HCPCS: 77063; 77067